=== PATIENT | female | born 1945 | race African-American/Black ===

== ENCOUNTER → 2017-04-04 | Outpatient (CLI) | payer MEDICARE ==
[2017-04-04 15:26] LABS: Blood Urea Nitrogen 23 mg/dL (7-17)
== END | disposition home or self-care (01) ==
LOC: LABWHC1 14:41
PROVIDERS: ATTEND Physical Medicine & Rehabilitation
DX: M48.56XD Collapsed vertebra, not elsewhere classified, lumbar region, subsequent encounter for fracture with routine healing (principal); M43.16 Spondylolisthesis, lumbar region; M47.814 Spondylosis without myelopathy or radiculopathy, thoracic region; M47.817 Spondylosis without myelopathy or radiculopathy, lumbosacral region; M48.062 Spinal stenosis, lumbar region with neurogenic claudication; M54.6 Pain in thoracic spine; M54.5 Low back pain
CPT/HCPCS: 36415; 82565; 84520

== ENCOUNTER → 2017-11-06 | Outpatient (CLI) | payer MEDICARE ==
--- NOTE | 2017-11-06 17:19 | CONS ---
CONSULTATION DATE OF SERVICE: 11/06/2017 This patient is a 72-year-old lady who has been evaluated in the sleep center for possible obstructive sleep apnea-hypopnea syndrome. HISTORY OF PRESENT ILLNESS/SLEEP-WAKE EVALUATION: Patient's usual sleep schedule on weekdays is from around 9 or 10 p.m. until 4:45 a.m., on weekends from around 11 p.m. until 6:30 or 8 a.m. Usually no problems with falling asleep, although she has a TV set in her bedroom. She sleeps on the side position with snoring and awakenings from sleep. In the morning patient wakes up tired. [place] Sleepiness Scale is 4. She may take naps after 2 p.m. For the last 10 years her weight has increased around 20 pounds. No history of hypnagogic hallucinations, sleep paralysis or cataplexy. PAST MEDICAL HISTORY: 1. Coronary artery disease. 2. Hypertension. 3. Back problems. PAST SURGICAL HISTORY: 1. CABG. 2. Total hysterectomy. 3. Back surgery in 2008. MEDICATIONS: 1. Dyazide. 2. Losartan. 3. Metoprolol. 4. Aspirin. 5. Motrin. SOCIAL HISTORY: Positive for smoking in the past; quit 40 years ago. Alcohol consumption none. FAMILY HISTORY: Hypertension, heart problems, hyperlipidemia, sinus headaches. REVIEW OF SYSTEMS: Some awakenings from sleep, feeling tiredness in the morning and also during the day. PHYSICAL EXAMINATION: GENERAL A pleasant 72-year-old -[place] lady without distress. VITAL SIGNS: BP 174/81, HR 45, RR 16, height 5 feet 6-1/4 inches, weight 249.4, body mass index 39.9, temperature 97.8, oxygen saturation at room air 95%. HEENT: PERRLA, EOMI. Evaluation of oropharynx showed tongue protrudes midline; extremely low position of soft palate. Mallampati IV. Slight restriction of nasal breathing. NECK: Supple. No JVD. Thyroid is not palpable. LUNGS: Clear to percussion and to auscultation. Good air exchange. No wheezing or rhonchi. HEART: S1, S2 regular. No murmurs, gallops or rubs. ABDOMEN: Obese. EXTREMITIES : No clubbing or cyanosis. APPLICATION CONSULTANT: Awake, alert, and oriented X3. Cranial nerves 2 to 7 intact. There is no fasciculation or atrophy. noted. No focal deficits observed. IMPRESSION: 1. Snoring, awakenings from sleep, extremely low position of soft palate, wide neck, tiredness, sometimes sleepiness during the day; patient takes naps in the afternoon; possible obstructive sleep apnea-hypopnea syndrome. 2. Obesity; body mass index 39.9. 3. Hypertension, not under very good control with at least 3 medications. Blood pressure in the office today was increased. 4. Coronary artery disease, status post coronary artery bypass grafting in 2004. 5. Back problems. 6. Status post back surgery in 2008. 7. Status post total hysterectomy. PLAN: 1. Polysomnography for evaluation of patient's breathing during sleep. 2. CPAP/BiPAP titration if sleep study confirms obstructive sleep apnea-hypopnea syndrome. 3. Preferable position during sleep on the side. 4. No driving if patient feels any sleepiness. Patient is aware of civil and criminal liability for unsafe driving. 5. I will see patient for follow-up visit to explain results of testing and following plan. Thank you very much for referring this patient for consultation. Sincerely, Woodrow Almanzar MD, PhD, FAASM Diplomat of [place] [employer] [employer] [place] Former of [facility] [place] MMODL / DONAVANN: [id number] /
== END | disposition home or self-care (01) ==
LOC: SLEEP 15:11
PROVIDERS: ATTEND Internal Medicine
DX: R06.83 Snoring (principal); M27.8 Other specified diseases of jaws; R53.83 Other fatigue; E66.9 Obesity, unspecified; I10 Essential (primary) hypertension; I25.10 Atherosclerotic heart disease of native coronary artery without angina pectoris; Z95.1 Presence of aortocoronary bypass graft; M53.9 Dorsopathy, unspecified; Z98.890 Other specified postprocedural states; Z68.39 Body mass index [BMI] 39.0-39.9, adult; Z90.710 Acquired absence of both cervix and uterus; Z79.1 Long term (current) use of non-steroidal anti-inflammatories (NSAID); Z79.82 Long term (current) use of aspirin; Z79.899 Other long term (current) drug therapy; Z87.891 Personal history of nicotine dependence
CPT/HCPCS: 99211

== ENCOUNTER → 2018-03-12 | Outpatient (CLI) | payer MEDICARE ==
--- NOTE | 2018-03-12 16:32 | PN ---
PROGRESS NOTE DATE OF SERVICE: 03/12/2018 This patient is a 72-year-old lady who has been followed in Sleep Center for treatment of obstructive sleep apnea-hypopnea syndrome. Recently the patient had a polysomnogram and CPAP titration, and I discussed results of her sleep studies with the patient in detail. Subsequently patient was started on treatment with CPAP. Today is her first visit after she was started on treatment. The patient is able to use CPAP equipment during the night. In the beginning she did had some difficulties, but later she got used to using the machine, and now she is using it more easily. At the same time, she still has episodes of awakenings up to 4 or 5 using the machine. Sometimes she may not be using her machine at the end of the night in the morning. I checked her CPAP unit. CPAP pressure is 9 cm of water. Usage is 23/30 nights for more than 4 hours. Otherwise, patient is using the equipment every night. Average usage is 4.9 hours. Leak is 22 L/minute, which is borderline. Apnea-hypopnea index for the last month is 4.0, which is acceptable. [place] Sleepiness Scale today is 4. MEDICATIONS: 1. Dyazide. 2. Losartan. 3. Metoprolol. 4. Aspirin. 5. Motrin. PHYSICAL EXAMINATION: GENERAL: A pleasant patient in no distress. VITAL SIGNS: BP 160/73, HR 56, RR 16, weight 245, temperature 98.2, oxygen saturation at room air 96%. HEENT: PERRLA, EOMI. Evaluation of oropharynx showed tongue protrudes midline. Extremely low position of soft palate. NECK: Supple. No JVD. Thyroid is not palpable. LUNGS: Clear to percussion and to auscultation. Good air exchange. No wheezing or rhonchi. HEART: S1, S2 regular. No murmurs, gallops or rubs. ABDOMEN: Slightly obese. EXTREMITIES: No clubbing or cyanosis. IT PROGRAM MANAGER: Awake, alert, and oriented X3. Cranial nerves 2 to 7 intact. There is no fasciculation or atrophy. noted. No focal deficits observed. IMPRESSION: 1. Obstructive sleep apnea-hypopnea syndrome in moderate range. Apnea-hypopnea index 20 with oxygen saturation to 79.7%, mostly under control with CPAP at 9 cm of water. Patient demonstrated good compliance with treatment, benefitting from treatment. 2. Patient still has some awakenings after 4 or 5 hours of using CPAP. 3. Obesity. 4. Hypertension. 5. Coronary artery disease, status post coronary artery bypass grafting in 2004. 6. Back problems. 7. Status post back surgery. 8. Status post total hysterectomy. PLAN: 1. Patient will continue to use CPAP equipment every night for the whole night. We discussed with her the necessity of using equipment in the morning hours because at that time there are more episodes of REM sleep, they are longer, and patient has more abnormal respirations related to REM sleep. 2. I will change regimen of the machine to automatic with a maximum pressure of 12 and minimum pressure of 5. 3. Losing weight. 4. Sleep hygiene with regular time in bed for at least 8 hours. 5. No driving if feeling any sleepiness. 6. We will maintain all necessary prescriptions for CPAP supplies, including mask, tube, filters. Thank you very much for allowing me to participate in the management of your patient. Sincerely, Woodrow Almanzar MD, PhD, FAASM Diplomat of [place] [employer] [place] [facility] [place] [facility]ODL / DONAVANN: [id number] /
== END ==
LOC: SLEEP 15:14
PROVIDERS: ATTEND Internal Medicine
DX: G47.33 Obstructive sleep apnea (adult) (pediatric) (principal); E66.9 Obesity, unspecified; I10 Essential (primary) hypertension; I25.10 Atherosclerotic heart disease of native coronary artery without angina pectoris; R29.898 Other symptoms and signs involving the musculoskeletal system; Z95.1 Presence of aortocoronary bypass graft; Z98.890 Other specified postprocedural states; Z90.710 Acquired absence of both cervix and uterus; Z99.89 Dependence on other enabling machines and devices; Z79.899 Other long term (current) drug therapy; Z79.1 Long term (current) use of non-steroidal anti-inflammatories (NSAID); Z79.82 Long term (current) use of aspirin

== ENCOUNTER → 2018-06-18 | Outpatient (CLI) | payer MEDICARE ==
--- NOTE | 2018-06-18 17:21 | PN ---
PROGRESS NOTE DATE OF SERVICE: 06/18/2018 This patient is a 73-year-old lady has been followed in the sleep center for treatment of obstructive sleep apnea-hypopnea syndrome. The last time I saw this patient was about 4 months ago. She came for a follow-up visit because during the first visit she did have some awakenings from sleep on the second part of the night. During the previous visit, I changed the regimen of her machine from 9 cm of water to the automatic regimen with the range of pressure 5 to 12 cm of water. With this regimen, the patient continues to use her CPAP equipment every night for the whole night. She sleeps better but still sometimes wakes up in the second part of the night, but less than before. I checked her CPAP unit. Range of the pressure is from 5 to 12 cm of water, but most of the time pressure is in the range of 10.3 cm of water. Leak is 23 L/minute, which is acceptable. Usage is 25/30 nights for more than 4 hours. Average usage is 5.3 hours, which is good compliance. Apnea-hypopnea index is 4.1, which is in normal range, but still may be the reason for patient's awakenings during the second part of the night. At present the patient is trying to stay off her back position. [place] Sleepiness Scale is 5. MEDICATIONS: 1. Dyazide. 2. Losartan. 3. Metoprolol. 4. Aspirin. 5. Motrin. PHYSICAL EXAMINATION: GENERAL: A pleasant patient in no distress. VITAL SIGNS: BP 160/79, HR 53, R 16, height 5 feet 6 inches, weight 241.6 pounds, body mass index 38.8, temperature 97.7, oxygen saturation at room air 97%. HEENT: PERRLA, EOMI. Evaluation of oropharynx showed tongue protrudes midline. Extremely low position of soft palate. Mallampati IV. NECK: Supple. No JVD. Thyroid is not palpable. LUNGS: Clear to percussion and to auscultation. Good air exchange. No wheezing or rhonchi. HEART: S1, S2 regular. No murmurs, gallops or rubs. ABDOMEN: Slightly obese. EXTREMITIES: No clubbing or cyanosis. SEAMSTRESS FITTER: Awake, alert, and oriented X3. Cranial nerves 2 to 7 intact. There is no fasciculation or atrophy. noted. No focal deficits observed. IMPRESSION: 1. Moderate obstructive sleep apnea-hypopnea syndrome; apnea-hypopnea index 20, with oxygen desaturation to 79.7%, in REM sleep 61.7. Patient demonstrated great compliance with treatment, benefitting from treatment. 2. Obesity. 3. Hypertension. 4. Coronary artery disease, status post coronary artery bypass grafting in 2004. 5. Back problems. 6. Status post back surgery. 7. Status post total hysterectomy. PLAN: 1. Patient will continue to use CPAP equipment with the same regimen as it is now. Patient will try to sleep on the side position. 2. Patient has lost 4 pounds since her previous visit. Continue losing weight. 3. Sleep hygiene with regular time in bed for 7-1/2 to 8 hours. 4. No driving if feeling any sleepiness. Thank you very much for allowing me to participate in the management of your patient. Sincerely, Woodrow Almanzar MD, PhD, FAASM Diplomat of [employer] Systems Support Specialist of [facility] [place] [facility]L / DONAVANN: [id number] /
== END | disposition home or self-care (01) ==
LOC: SLEEP 15:19
PROVIDERS: ATTEND Internal Medicine
DX: G47.33 Obstructive sleep apnea (adult) (pediatric) (principal); E66.9 Obesity, unspecified; I10 Essential (primary) hypertension; I25.10 Atherosclerotic heart disease of native coronary artery without angina pectoris; M54.9 Dorsalgia, unspecified; Z95.1 Presence of aortocoronary bypass graft; Z90.710 Acquired absence of both cervix and uterus; Z98.890 Other specified postprocedural states; Z68.38 Body mass index [BMI] 38.0-38.9, adult; Z79.82 Long term (current) use of aspirin; Z79.1 Long term (current) use of non-steroidal anti-inflammatories (NSAID); Z79.899 Other long term (current) drug therapy; Z99.89 Dependence on other enabling machines and devices

== ENCOUNTER → 2022-01-18 | Outpatient (CLI) | payer MEDICARE ==
--- NOTE | 2022-01-18 09:46 | US ---
EXAMINATION TYPE: US thyroid st tissue head/neck DATE OF EXAM: 01/18/2022 COMPARISON: Chest CT 2014. CLINICAL HISTORY: R22.1 Localized swelling, mass and lump neck. Lump right side of neck. Scanned area of concern no abnormalities seen. Targeted ultrasound right neck shows no worrisome solid or cystic mass or fluid collection. Normal ri ght thyroid lobe is present on images. IMPRESSION: As above.
== END | disposition home or self-care (01) ==
LOC: RADUSWWP 07:40
PROVIDERS: ATTEND Family Medicine
DX: R22.1 Localized swelling, mass and lump, neck (principal)
CPT/HCPCS: 76536

== ENCOUNTER → 2022-02-13 | Outpatient (CLI) | payer MEDICARE ==
--- NOTE | 2022-02-13 13:41 | CT ---
EXAMINATION TYPE: CT soft tissue neck w con DATE OF EXAM: 02/13/2022 COMPARISON: Ultrasound 01/18/2022 HISTORY: 76-year-old female R22.1, lump to anterior right side of neck TECHNIQUE: Contiguous axial scanning of the soft tissues of the neck performed with IV Contrast, reena ent injected with 70cc mL of Isovue 300. Coronal/sagittal reconstructions performed. CT DLP: 700 mGycm Automated exposure control for dose reduction was used. FINDINGS: Visualized paranasal sinuses, orbits and globes, and mastoid air cells appear clear. Atherosclerotic calcifications in the carotid siphons. Also within the right greater than left verteb ral arteries. Nasopharynx appears clear. There is a 4 mm calcification in the right palatine tonsils. Likely sequela of old infection. Short r etropharyngeal course of the left ICA noted. Oropharynx otherwise clear. Patient is partially dentulous. Mild dental amalgam artifact limiting portions of the oral cavity. Possible circumferential soft tissue narrowing of the supraglottic airway, reference axial image 41. Either piriform sinus is well seen. Epiglottis and prevertebral soft tissues are satisfactory. The glottic and subglottic structures as well as the tracheal column appear clear. Median sternotomy wires. Bovine configuration to the aortic arch. There is a very tortuous brachiocephalic artery which extends anteriorly, slightly pushing on to the right side of the lower right sternocleidomastoid muscle. Responding focal tortuosity of the proximal right subclavian and proximal right common carotid arteries. Overlying palpable marker here at the tortuous brachiocephalic artery. Refer to sagittal image 52. No cervical lymphadenopathy seen. Thyroid, submandibular, and parotid glands appear satisfactory. Visualized upper lungs show mild wall thickening that could be seen with bronchitis or asthma. Bones: Mild to moderate multilevel spondylotic change. IMPRESSION: 1. POSSIBLE CIRCUMFERENTIAL SOFT TISSUE THICKENING CAUSING NARROWING OF THE SUPRAGLOTTIC AIRWAY. JOAQUÍN MMEND DIRECT VISUALIZATION TO EXCLUDE ANNULAR MUCOSAL LESION/NEOPLASM HERE. 2. PALPABLE MARKER ALONG THE ANTERIOR ASPECT OF THE RIGHT LOWER NECK. THIS APPEARS TO CORRESPOND TO F OCAL TORTUOSITY OF THE BRACHIOCEPHALIC ARTERY PUSHING ONTO THE BACK SIDE OF THE LOWER RIGHT STERNOCLE IDOMASTOID MUSCLE. REFER TO SAGITTAL IMAGE 52 FOR A PHONOGRAPH CARTRIDGE ASSEMBLER IMAGE.
== END | disposition home or self-care (01) ==
LOC: RADCTMAIN 10:28
PROVIDERS: ATTEND Family Medicine
DX: R22.1 Localized swelling, mass and lump, neck (principal)
CPT/HCPCS: 82565; 84520; 70491; 36415; Q9967

== ENCOUNTER → 2022-06-14 | Outpatient (CLI) | payer MEDICARE | END | disposition home or self-care (01) | LOC: LABWHC1 15:34 | PROVIDERS: ATTEND Family Medicine | DX: I10 Essential (primary) hypertension (principal) | CPT/HCPCS: 83835 ==

== ENCOUNTER 2023-02-14 00:33 | Inpatient (IN) | payer MEDICARE, OTHER ==
[2023-02-14] MEDS ORDERED: EPINEPHrine 10 ML SYRINGE (0.1 MG/ML) ONE (00:34)
[2023-02-14] MEDS ORDERED: SODIUM BICARB 8.4% 50 ML SYR (1 MEQ/ML) ONE ×2 (00:34→08:59)
[2023-02-14] MEDS ORDERED: HEPARIN SODIUM 1,000 UN/ML (10ML VL) IV PRN (01:00)
[2023-02-14] MEDS ORDERED: EPINEPHrine 4 MG in DEXTROSE 5% IN WATER 250 ML IV ONE ×2 (01:00)
[2023-02-14] MEDS ORDERED: SODIUM CHLORIDE 0.9% 1,000 ML IV STA (01:00)
[2023-02-14] MEDS ORDERED: HEPARIN SOD,PORK IN 0.45% NACL 25,000 UNIT in 0.45% NACL 1 250ML.BAG IV SCH (01:00)
[2023-02-14] MEDS ORDERED: HEPARIN SODIUM 1,000 UN/ML (10ML VL) IV ONE (01:00)
[2023-02-14] MEDS ORDERED: ASPIRIN 300 MG SUPP RECTAL STA (01:01)
[2023-02-14 01:07] LABS: Basophils # (A) 0.1 k/uL (0-0.2); Basophils % (A) 1 %; Eosinophils # (A) 0.1 k/uL (0-0.7); Eosinophils % (A) 1 %; HCT 41.5 % (34.0-46.0); HGB 12.8 gm/dL (11.4-16.0); Hypochromasia Marked; Lymphocytes # (A) 5.4 k/uL (1.0-4.8); Lymphocytes % (A) 46 %; MCHC 30.9 g/dL (31.0-37.0); MCV 100.5 fL (80.0-100.0); Macrocytosis Slight; Mean Platelet Volume 8.3; Monocytes # (A) 0.3 k/uL (0-1.0); Monocytes % (A) 2 %; Neutrophils # (A) 5.7 k/uL (1.3-7.7); Neutrophils % (A) 48 %; Platelet Count 132 k/uL (150-450); RBC 4.13 m/uL (3.80-5.40); RDW 14.5 % (11.5-15.5); WBC 11.9 k/uL (3.8-10.6)
[2023-02-14 01:23] LABS: ALT 115 U/L (4-34); AST 139 U/L (14-36); African American GFR (CKD) 41 (>60 ml/min/1.73 sqM); Albumin 3.5 g/dL (3.5-5.0); Alkaline Phosphatase 124 U/L (38-126); Anion Gap 21 mmol/L; Blood Urea Nitrogen 18 mg/dL (7-17); Calcium 8.4 mg/dL (8.4-10.2); Carbon Dioxide 13 mmol/L (22-30); Chloride 109 mmol/L (98-107); Glucose 308 mg/dL (74-99); Magnesium 2.3 mg/dL (1.6-2.3); Non-African American GFR(CKD) 36 (>60 ml/min/1.73 sqM); Phosphorus 7.6 mg/dL (2.5-4.5); Sodium 143 mmol/L (137-145); Total Bilirubin 0.8 mg/dL (0.2-1.3); Total Protein 6.7 g/dL (6.3-8.2)
--- NOTE | 2023-02-14 01:26 | ED ---
CPR HPI - General Chief Complaint: Cardiac Arrest/CPR Stated Complaint: unresponsive Time Seen by Provider: 02/14/23 00:35 Source: EMS, RN notes reviewed, old records reviewed Mode of arrival: EMS Limitations: no limitations - History of Present Illness Initial Comments: This is a 77-year-old female to the emergency department for evaluation. Patient presents today for evaluation of cardiac arrest. Patient was a witnessed collapse hitting the ground and was significantly found altered, no pulse, initial rhythm was asystolepresents today MD Complaint: found unresponsive Bystander CPR Performed: Yes AED Applied by Bystander/Changeover Operator: Yes Shock Advised: No Initial Findings in the Field: unresponsive ROSC in the Field: Yes Associated Injuries: Yes Treatments Prior to Arrival: intubation - Related Data Home Medications Medication Instructions Recorded Confirmed Metoprolol Tartrate [Lopressor] 25 mg PO BID 07/23/13 02/14/23 Irbesartan 300 mg PO DAILY 04/08/22 02/14/23 Latanoprost/Pf [Latanoprost 0.005% 1 drop BOTH EYES HS 04/08/22 02/14/23 Eye Drop] [place]-3 Fatty Acids [[place]-3] 1,000 mg PO DAILY 04/08/22 02/14/23 Albuterol Sulfate [Albuterol 2 puff PO RT-Q4H PRN 02/14/23 02/14/23 Sulfate Hfa] Aspirin EC [Ecotrin Low Dose] 81 mg PO DAILY 02/14/23 02/14/23 Ergocalciferol [Vitamin D2 (1250 1,250 mcg PO QMONTHLY 02/14/23 02/14/23 Mcg = 81447 Iu)] Spironolactone 25 mg PO DAILY 02/14/23 02/14/23 amLODIPine [Norvasc] 10 mg PO DAILY 02/14/23 02/14/23 Allergies Allergy/AdvReac Type Severity Reaction Status Date / Time No Known Allergies Allergy Verified 02/14/23 09:12 Review of Systems ROS Statement: Those systems with pertinent positive or pertinent negative responses have been documented in the HPI. ROS Other: All systems not noted in ROS Statement are negative. Past Medical History - Past Family History Mother Family Medical History: No Reported History General Exam Limitations: altered mental status, physical limitation General appearance: anxious, obtunded, in distress Head exam: Present: atraumatic, normocephalic, normal inspection Eye exam: Present: other (Pupils are fixed and dilated) ENT exam: Present: normal exam, mucous membranes moist Neck exam: Present: normal inspection. Absent: tenderness, meningismus, lymphadenopathy Respiratory exam: Present: other (Neck) Cardiovascular Exam: Present: regular rate, normal rhythm, bradycardia, tachyc ardia, irregular rhythm, normal heart sounds. Absent: systolic murmur, diastolic murmur, rubs, gallop, clicks GI/Abdominal exam: Present: soft, normal bowel sounds. Absent: distended, tenderness, guarding, rebound, rigid Extremities exam: Present: normal inspection, full ROM, normal capillary refill. Absent: tenderness, pedal edema, joint swelling, calf tenderness Back exam: Present: normal inspection Neurological exam: Present: alert, oriented X3, CN II-XII intact Psychiatric exam: Present: normal affect, normal mood Skin exam: Present: warm, dry, intact, normal color. Absent: rash Course Vital Signs 02/14/23 02/14/23 02/14/23 01:06 02:10 02:20 Pulse Rate 86 92 Respiratory 0 L 10 L Rate Blood Pressure 119/74 117/100 O2 Sat by Pulse 100 93 L Oximetry Fraction of 100 Inspired Oxygen (FIO2) 02/14/23 02/14/23 02/14/23 02:30 02:38 02:40 Pulse Rate 90 91 Respiratory 8 L 8 L Rate Blood Pressure 147/132 171/121 O2 Sat by Pulse 98 99 Oximetry Fraction of 100 Inspired Oxygen (FIO2) 02/14/23 02/14/23 02/14/23 02:50 03:00 03:10 Pulse Rate 91 93 96 Respiratory 7 L 18 14 Rate Blood Pressure 169/101 167/120 171/109 O2 Sat by Pulse 100 100 100 Oximetry Fraction of Inspired Oxygen (FIO2) 02/14/23 02/14/23 02/14/23 03:20 03:30 04:00 Pulse Rate 98 105 H Respiratory 14 11 L Rate Blood Pressure 175/123 173/115 O2 Sat by Pulse 100 99 Oximetry Fraction of 60 Inspired Oxygen (FIO2) 02/14/23 02/14/23 04:45 04:46 Pulse Rate 86 Respiratory 25 H Rate Blood Pressure O2 Sat by Pulse 98 Oximetry Fraction of 100 Inspired Oxygen (FIO2) - Reevaluation(s) Reevaluation #1: 02/14/23 02:46 Records reviewed Reevaluation #2: This patient has multiple episodes of return of spontaneous circulation followed by bradycardic hemodynamic collapse requiring recurrent CPR, ACLS protocol Reevaluation #3: patient is informed of results and questions answered Reevaluation #4: 02/14/23 02:46 Was pt. sent in by a medical professional or institution (, [facility], [facility], urgent care, hospital, or senior care...) When possible be specific @ -no Did you speak to anyone other than the patient for history (EMS, parent, family, police, friend...)? What history was obtained from this source @ -no Did you review nursing and triage notes (agree or disagree)? Why? @ -agree Are old charts reviewed (outside hosp., previous admission, EMS record, old EKG, old radiological studies, urgent care reports/EKG's, senior care records)? Report findings @ -yes Differential Diagnosis (chest pain, altered mental status, abdominal pain women, abdominal pain men, vaginal bleeding, weakness, fever, dyspnea, syncope, headache, dizziness, GI bleed, back pain, seizure, CVA, palpatations, mental health, musculoskeletal)? @ -prior EKG interpreted by me (3pts min.). @ -yes X-rays interpreted by me (1pt min.). @ -yes CT interpreted by me (1pt min.). @ -no U/S interpreted by me (1pt. min.). @ -no What testing was considered but not performed or refused? (CT, X-rays, U/S, labs)? Why? @ -none What meds were considered but not given or refused? Why? @ -none Did you discuss the management of the patient with other professionals (professionals i.e. [facility] Mathews, [facility], lab, RT, psych nurse, social media marketer, employment manager, teacher, infantry officer, keycase assembler)? Give summary @ -no Was smoking cessation discussed for >3mins.? @ -no Was critical care preformed (if so, how long)? @ -no Were there social determinants of health that impacted care today? How? (Homelessness, low income, unemployed, alcoholism, drug addiction, transportation, low edu. Level, literacy, decrease access to med. care, care home, rehab)? @ -none Was there de-escalation of care discussed even if they declined (Discuss DNR or withdrawal of care, Hospice)? DNR status @ -no What co-morbidities impacted this encounter? (DM, HTN, Smoking, COPD, CAD, Cancer, CVA, ARF, Chemo, Hep., AIDS, mental health diagnosis, sleep apnea, morbid obesity)? @ -none Was patient admitted / discharged? Hospital course, mention meds given and route, prescriptions, significant lab abnormalities, going to OR and other pertinent info. @ - Undiagnosed new problem with uncertain prognosis? @ -no Drug Therapy requiring intensive monitoring for toxicity (Heparin, Nitro, Insulin, Cardizem)? @ -no Were any procedures done? @ -no Diagnosis/symptom? @ - Acute, or Chronic, or Acute on Chronic? @ -Acute Uncomplicated (without systemic symptoms) or Complicated (systemic symptoms)? @ -Complicated Side effects of treatment? @ -no Exacerbation, Progression, or Severe Exacerbation? @ -exacerbation Poses a threat to life or bodily function? How? (Chest pain, [place], [place], pneumonia, PE, COPD, DKA, ARF, appy, cholecystitis, CVA, Diverticulitis, Homicidal, Suicidal, threat to staff... and all critical care pts) @ -yes Reevaluation #5: 02/14/23 02:46 Hypoxia, Hacidosis, Hypotension, Hyperkalemia, Hypoglycemia Trauma, Tamponade, Toxins, TensionPtx,Thrombosis - Consultations Consultation #1: spoke with cardiology who will not be taking this patient to the [facility] with epinephrine dependent cardiac activity, no neurological activity Consultation #2: [place] with admitting physicians who agreed to admit this patient Consultation #3: Spoke with ICU who agreed to admit this patient Medical Decision Making - Medical Decision Making 77 female the ER for evaluation of cardiac arrest. Patient was able to be maintained pain with return of spontaneous circulation, elevation with central line and in admitted to the ICU for further supportive care - Lab Data Result diagrams: 02/17/23 04:16 02/17/23 04:16 Lab Results 02/14/23 02/14/23 02/14/23 Range/Units 00:49 00:49 00:49 WBC 11.9 H (3.8-10.6) k/uL RBC 4.13 (3.80-5.40) m/uL Hgb 12.8 (11.4-16.0) gm/dL Hct 41.5 (34.0-46.0) % MCV 100.5 H (80.0-100.0) fL MCH 31.0 (25.0-35.0) pg MCHC 30.9 L (31.0-37.0) g/dL RDW 14.5 (11.5-15.5) % Plt Count 132 L (150-450) k/uL MPV 8.3 Neutrophils % 48 % Lymphocytes % 46 % Monocytes % 2 % Eosinophils % 1 % Basophils % 1 % Neutrophils # 5.7 (1.3-7.7) k/uL Lymphocytes # 5.4 H (1.0-4.8) k/uL Monocytes # 0.3 (0-1.0) k/uL Eosinophils # 0.1 (0-0.7) k/uL Basophils # 0.1 (0-0.2) k/uL Manual Slide Review Performed Hypochromasia Marked Macrocytosis Slight PT 13.3 H (10.0-12.5) sec INR 1.3 H (<1.2) APTT 40.4 H (22.0-30.0) sec Sample Site ABG pH (7.35-7.45) ABG pCO2 (35-45) mmHg ABG pO2 (83-108) mmHg ABG HCO3 (21-25) mmol/L ABG Total CO2 (19-24) mmol/L ABG O2 Saturation (94-97) % ABG Base Excess mmol/L Tom Test FiO2 % Sodium 143 (137-145) mmol/L Potassium 3.2 L (3.5-5.1) mmol/L Chloride 109 H (98-107) mmol/L Carbon Dioxide 13 L (22-30) mmol/L Anion Gap 21 mmol/L BUN 18 H (7-17) mg/dL Creatinine 1.42 H (0.52-1.04) mg/dL Est GFR (CKD-EPI)AfAm 41 (>60 ml/min/1.73 sqM) Est GFR (CKD-EPI)NonAf 36 (>60 ml/min/1.73 sqM) Glucose 308 H (74-99) mg/dL Lactic Ac Sepsis Rflx Plasma Lactic Acid Klever (0.7-2.0) mmol/L Calcium 8.4 (8.4-10.2) mg/dL Phosphorus 7.6 H (2.5-4.5) mg/dL Magnesium 2.3 (1.6-2.3) mg/dL Total Bilirubin 0.8 (0.2-1.3) mg/dL AST 139 H (14-36) U/L ALT 115 H (4-34) U/L Alkaline Phosphatase 124 (38-126) U/L Troponin I (0.000-0.034) ng/mL NT-Pro-B Natriuret Pep 8610 pg/mL Total Protein 6.7 (6.3-8.2) g/dL Albumin 3.5 (3.5-5.0) g/dL 02/14/23 02/14/23 02/14/23 Range/Units 00:49 00:49 01:33 WBC (3.8-10.6) k/uL RBC (3.80-5.40) m/uL Hgb (11.4-16.0) gm/dL Hct (34.0-46.0) % MCV (80.0-100.0) fL MCH (25.0-35.0) pg MCHC (31.0-37.0) g/dL RDW (11.5-15.5) % Plt Count (150-450) k/uL MPV Neutrophils % % Lymphocytes % % Monocytes % % Eosinophils % % Basophils % % Neutrophils # (1.3-7.7) k/uL Lymphocytes # (1.0-4.8) k/uL Monocytes # (0-1.0) k/uL Eosinophils # (0-0.7) k/uL Basophils # (0-0.2) k/uL Manual Slide Review Hypochromasia Macrocytosis PT (10.0-12.5) sec INR (<1.2) APTT (22.0-30.0) sec Sample Site ABG pH (7.35-7.45) ABG pCO2 (35-45) mmHg ABG pO2 (83-108) mmHg ABG HCO3 (21-25) mmol/L ABG Total CO2 (19-24) mmol/L ABG O2 Saturation (94-97) % ABG Base Excess mmol/L Tom Test FiO2 % Sodium (137-145) mmol/L Potassium (3.5-5.1) mmol/L Chloride (98-107) mmol/L Carbon Dioxide (22-30) mmol/L Anion Gap mmol/L BUN (7-17) mg/dL Creatinine (0.52-1.04) mg/dL Est GFR (CKD-EPI)AfAm (>60 ml/min/1.73 sqM) Est GFR (CKD-EPI)NonAf (>60 ml/min/1.73 sqM) Glucose (74-99) mg/dL Lactic Ac Sepsis Rflx Y Plasma Lactic Acid Klever 10.4 H* (0.7-2.0) mmol/L Calcium (8.4-10.2) mg/dL Phosphorus (2.5-4.5) mg/dL Magnesium (1.6-2.3) mg/dL Total Bilirubin (0.2-1.3) mg/dL AST (14-36) U/L ALT (4-34) U/L Alkaline Phosphatase (38-126) U/L Troponin I 0.127 H* (0.000-0.034) ng/mL NT-Pro-B Natriuret Pep pg/mL Total Protein (6.3-8.2) g/dL Albumin (3.5-5.0) g/dL 02/14/23 Range/Units 02:25 WBC (3.8-10.6) k/uL RBC (3.80-5.40) m/uL Hgb (11.4-16.0) gm/dL Hct (34.0-46.0) % MCV (80.0-100.0) fL MCH (25.0-35.0) pg MCHC (31.0-37.0) g/dL RDW (11.5-15.5) % Plt Count (150-450) k/uL MPV Neutrophils % % Lymphocytes % % Monocytes % % Eosinophils % % Basophils % % Neutrophils # (1.3-7.7) k/uL Lymphocytes # (1.0-4.8) k/uL Monocytes # (0-1.0) k/uL Eosinophils # (0-0.7) k/uL Basophils # (0-0.2) k/uL Manual Slide Review Hypochromasia Macrocytosis PT (10.0-12.5) sec INR (<1.2) APTT (22.0-30.0) sec Sample Site RBRACHIAL ABG pH 7.07 L* (7.35-7.45) ABG pCO2 67 H (35-45) mmHg ABG pO2 114 H (83-108) mmHg ABG HCO3 19 L (21-25) mmol/L ABG Total CO2 21 (19-24) mmol/L ABG O2 Saturation 95.5 (94-97) % ABG Base Excess -11.0 mmol/L Tom Test Yes FiO2 100 % Sodium (137-145) mmol/L Potassium (3.5-5.1) mmol/L Chloride (98-107) mmol/L Carbon Dioxide (22-30) mmol/L Anion Gap mmol/L BUN (7-17) mg/dL Creatinine (0.52-1.04) mg/dL Est GFR (CKD-EPI)AfAm (>60 ml/min/1.73 sqM) Est GFR (CKD-EPI)NonAf (>60 ml/min/1.73 sqM) Glucose (74-99) mg/dL Lactic Ac Sepsis Rflx Plasma Lactic Acid [place] (0.7-2.0) mmol/L Calcium (8.4-10.2) mg/dL Phosphorus (2.5-4.5) mg/dL Magnesium (1.6-2.3) mg/dL Total Bilirubin (0.2-1.3) mg/dL AST (14-36) U/L ALT (4-34) U/L Alkaline Phosphatase (38-126) U/L Troponin I (0.000-0.034) ng/mL NT-Pro-B Natriuret Pep pg/mL Total Protein (6.3-8.2) g/dL Albumin (3.5-5.0) g/dL - EKG Data -: EKG Interpreted by Me (G is A. fib 85 QRS 125 QTc 464 no arrhythmia with ischemic demand) - Radiology Data Radiology results: report reviewed (CT brain C-spine negative for traumatic injury, chest x-ray does show pneumonia, positive ET tube), image reviewed Critical Care Time Critical Care Time: Yes Total Critical Care Time: 95 Disposition Clinical Impression: Acute myocardial infarction, Acute respiratory failure, Cardiac arrest, Signs of return of spontaneous circulation, Pneumonia Disposition: ADMITTED IP TO THIS HOSP Condition: Critical Is patient prescribed a controlled substance at d/c from ED?: No Time of Disposition: 03:00
[2023-02-14] MEDS ORDERED: VERAPAMIL 2.5 MG/ML 2 ML AMP ONE (01:27)
[2023-02-14] MEDS ORDERED: LIDOCAINE 1% INJ 10MG/ML (20 ML MDV) ONE (01:27)
[2023-02-14 01:28] LABS: INR 1.3 (<1.2); Partial Thromboplastin Time 40.4 sec (22.0-30.0); Prothrombin Time 13.3 sec (10.0-12.5)
[2023-02-14 01:29] LABS: Potassium 3.2 mmol/L (3.5-5.1)
[2023-02-14 01:30] LABS: NT-Pro-B-Type Natriuretic Pept 8610 pg/mL
--- NOTE | 2023-02-14 02:07 | XR ---
EXAM: XR Chest, 1 View CLINICAL HISTORY: STEMI TECHNIQUE: Frontal view of the chest. COMPARISON: No relevant prior studies available. FINDINGS: Lungs: Large amount of airspace opacities in both lungs, more on the left. Right lung is under inflated. Pleural space: Unremarkable. Heart: Cardiomegaly. Mediastinum: Unremarkable. Normal mediastinal contour. Bones/joints: Sternal wires. Tubes, lines and devices: Tip of enteric tube is in the body the stomach. Tip of endotracheal tube is about 4 cm above the mary. Upper abdomen: Colonic dilatation measuring up to 7.6 cm may suggest colonic ileus with distal obstruction. IMPRESSION: 1. Bilateral pneumonia and/or pulmonary edema, worse on the left. 2. Colonic dilatation measuring up to 7.6 cm, may suggest colonic ileus with distal obstruction.
--- NOTE | 2023-02-14 02:11 | CT ---
855 images EXAM: CT Head Without Intravenous Contrast CLINICAL HISTORY: ITS.REASON CT Reason: fall TECHNIQUE: Axial computed tomography images of the head/brain without intravenous contrast. CTDI is 12.9 mGy and DLP is 420.95 mGy-cm. This CT exam was performed using one or more of the following dose reduction techniques: automated exposure control, adjustment of the mA and/or kV according to patient size, and/or use of iterative reconstruction technique. Coronal and sagittal reformatted images were created and reviewed. COMPARISON: No relevant prior studies available. FINDINGS: Brain: Moderate sized encephalomalacia of right temporal lobe. Moderate age-related generalized brain volume loss and chronic small vessel ischemic changes. No hemorrhage. Ventricles: Unremarkable. No ventriculomegaly. Bones/joints: No acute findings. Soft tissues: Large left forehead scalp hematoma extending to left orbit and nasal bone. Sinuses: Ethmoid sinus disease. Mastoid air cells: Unremarkable as visualized. No mastoid effusion. IMPRESSION: No intracranial hemorrhage or skull fracture. EXAM: CT Cervical Spine Without Intravenous Contrast CLINICAL HISTORY: ITS.REASON CT Reason: fall TECHNIQUE: Axial computed tomography images of the cervical spine without intravenous contrast. CTDI is 17.5 mGy and DLP is 501.5 mGy-cm. This CT exam was performed using one or more of the following dose reduction techniques: automated exposure control, adjustment of the mA and/or kV according to patient size, and/or use of iterative reconstruction technique. Coronal and sagittal reformatted images were created and reviewed. COMPARISON: No relevant prior studies available. FINDINGS: Vertebrae: Osteopenia. Moderate degenerative changes. No acute fracture. Discs/spinal canal/neural foramina: No acute findings. No spinal canal stenosis. Soft tissues: Subcutaneous contusion of left neck base. Lung apices: Large amount of opacities in the visualized left lung and small in the right lung, suggest pneumonia, pulmonary contusion versus aspiration. Tubes, lines and devices: Endotracheal and enteric tubes are noted. IMPRESSION: 1. No fracture or subluxation. 2. Bilateral pneumonia, pulmonary contusion versus aspiration, worse in the left.
--- NOTE | 2023-02-14 02:14 | CT ---
EXAM: CT Maxillofacial Without Intravenous Contrast CLINICAL HISTORY: fall TECHNIQUE: Axial computed tomography images of the face without intravenous contrast. CTDI is 12.9 mGy and DLP is 420.95 mGy-cm. This CT exam was performed using one or more of the following dose reduction techniques: automated exposure control, adjustment of the mA and/or kV according to patient size, and/or use of iterative reconstruction technique. Coronal and sagittal reformatted images were created and reviewed. COMPARISON: No relevant prior studies available. FINDINGS: Bones/joints: No acute findings. Soft tissues: Large left forehead scalp hematoma extending to orbit and nasal bone. Orbits: Unremarkable. Sinuses: Unremarkable. No air-fluid levels. IMPRESSION: No fracture.
[2023-02-14 02:28] LABS: ABG HCO3 19 mmol/L (21-25); ABG Oxygen Saturation 95.5 % (94-97); ABG PCO2 67 mmHg (35-45); ABG PO2 114 mmHg (83-108); ABG TCO2 21 mmol/L (19-24); Allen Test Performed? Yes
[2023-02-14 02:36] LABS: ABG PH 7.07 (7.35-7.45)
[2023-02-14] MEDS ORDERED: IPRATROPIUM-ALBUTEROL 3 ML NEB INHALATION PRN ×2 (02:51→08:36)
[2023-02-14] MEDS ORDERED: NALOXONE 0.4 MG/ML 1 ML VIAL IV PRN (02:51)
[2023-02-14] MEDS ORDERED: MIDAZOLAM 1 MG/ML 5 ML VIAL IV STA (03:14)
[2023-02-14 04:34] LABS: Glucose,Whole Blood 219 mg/dL (70-110)
[2023-02-14 05:02] LABS: Basophils # (A) 0.1 k/uL (0-0.2); Basophils % (A) 0 %; Eosinophils # (A) 0.1 k/uL (0-0.7); Eosinophils % (A) 1 %; HCT 39.9 % (34.0-46.0); HGB 12.5 gm/dL (11.4-16.0); Hypochromasia Moderate; Lymphocytes % (A) 14 %; MCH 30.5 pg (25.0-35.0); MCHC 31.3 g/dL (31.0-37.0); MCV 97.7 fL (80.0-100.0); Mean Platelet Volume 8.3; Monocytes # (A) 0.6 k/uL (0-1.0); Monocytes % (A) 3 %; Neutrophils # (A) 18.1 k/uL (1.3-7.7); Neutrophils % (A) 82 %; Platelet Count 177 k/uL (150-450); RBC 4.08 m/uL (3.80-5.40); RDW 14.7 % (11.5-15.5); WBC 22.2 k/uL (3.8-10.6)
[2023-02-14 05:14] LABS: African American GFR (CKD) 33 (>60 ml/min/1.73 sqM); Anion Gap 19 mmol/L; Blood Urea Nitrogen 25 mg/dL (7-17); Calcium 7.8 mg/dL (8.4-10.2); Carbon Dioxide 18 mmol/L (22-30); Chloride 108 mmol/L (98-107); Glucose 282 mg/dL (74-99); Magnesium 2.1 mg/dL (1.6-2.3); Non-African American GFR(CKD) 29 (>60 ml/min/1.73 sqM); Potassium 2.8 mmol/L (3.5-5.1); Sodium 145 mmol/L (137-145)
[2023-02-14] MEDS ORDERED: SODIUM CHLORIDE 0.9% 1,000 ML IV ONE ×2 (05:21→07:13)
[2023-02-14] MEDS ORDERED: Potassium Replacement Protocol 1 EACH MISC MISCELLANE PRN (05:31)
[2023-02-14] MEDS: VASOPRESSIN 60 UNIT in SODIUM CHLORIDE 0.9% 150 ML IV SCH (05:42)
[2023-02-14] MEDS: POTASSIUM CHLORIDE 20 MEQ in WATER FOR INJECTION 1 100ML.BAG IVPB SCH ×5 (06:05→17:12)
[2023-02-14 06:34] LABS: ABG Base Excess -9.2 mmol/L; ABG HCO3 19 mmol/L (21-25); ABG Oxygen Saturation 93.1 % (94-97); ABG PCO2 46 mmHg (35-45); ABG PH 7.22 (7.35-7.45); ABG PO2 78 mmHg (83-108); ABG TCO2 20 mmol/L (19-24); Allen Test Performed? Yes
--- NOTE | 2023-02-14 07:41 | P.CRDCN ---
History of Present Illness Consult date: 02/14/23 History of present illness: History of Present Illness: Patient is a 77-year-old female with a known history of CAD, status post CABG over 20 years ago who presented with cardiac arrest. The history is obtained from the records and the family. According to the son he came back home and found his mother on the floor, very weak dyspneic and shortly after had cardiac arrest. EMS started CPR that lasted for about 30 minutes requiring cardioversion 2. She was intubated. In the emergency room initially she was in atrial fibrillation and subsequently went back to sinus mechanism. The initial rhythm on the field according to the records was asystole. Patient had a large hematoma on the left side of the face. According to the family she has been doing well recently without any symptoms of angina pectoris nor congestive heart failure but she does not follow-up with cardiology on a regular basis. She had a triple bypass according to them, full detail of her intervention are not available. Her surgery was done at [facility]. The records are not available. No other history is available at this time. The patient is intubated, in sinus mechanism, has no urinary output and is requiring vasopressin and norepinephrine. She was severely acidotic on presentation. Medications: Metoprolol in addition to other medications, unclear Review of Systems: Could not be obtained Physical Examination: 77-year-old female, intubated with large hematoma on the left side of the face ,Blood pressure 120/70, Heart rate 80 Head: Hematoma above the left eye and on the left cheek Eyes: Significant edema on the left side Neck: Good carotid upstroke, no bruit, no jugular venous distention. Lungs: Clear to auscultation anteriorly. Heart: Regular rate and rhythm, S1-S2, no S3, no rub. Systolic ejection murmur. Abdomen: Soft, positive bowel sounds no organomegaly. Extremities: Trace to 1+ edema, intact distal pulses. Labs: WBC 22.2, hemoglobin 12.5, pH 7.07 with pCO2 of 67, pO2 114. Potassium is 2.8, BUN 25, creatinine 1.7. Plasma lactic 10.4. Troponin 0.127, NT proBNP 8610. Chest x-ray with evidence of congestion and evidence of pulmonary edema. Computed tomography scan of the head revealed no evidence of intracranial hemorrhage EKG: Initial EKG shows atrial fibrillation with evidence of inferolateral wall myocardial infarction and ST segment depression on the lateral leads Impression: 1. Cardiac arrest with prolonged CPR and severe acidosis 2. Acute STEMI with inferolateral wall EKG changes 3. Status post CABG 20 years ago 4. Acute renal shutdown with anuria 5. Probable anoxic encephalopathy 6. Face hematoma with no fractures Plan: 1. In view of the prolonged CPR patient is not a candidate for acute coronary angiography 2. Obtain an echocardiogram with Doppler 3. Supportive care 4. Try to obtain prior records 5. Prognosis is very poor, I discussed the findings with the family at length. Depending on her progress further recommendations will be made, thank you for this consult we will follow with you. Past Medical History Past Medical History: Coronary Artery Disease (CAD), Hypertension, Sleep Apnea/CPAP/BIPAP Additional Past Medical History / Comment(s): Sciatica History of Any Multi-Drug Resistant Organisms: None Reported Past Surgical History: Coronary Bypass/CABG Additional Past Surgical History / Comment(s): Early 1999s (2002 or 2004) Past Anesthesia/Blood Transfusion Reactions: No Reported Reaction Past Psychological History: No Psychological Hx Reported Smoking Status: Former smoker Medications and Allergies Allergies Allergy/AdvReac Type Severity Reaction Status Date / Time Unable to Assess Allergy Verified 02/14/23 00:55 Physical Exam Vitals: Vital Signs Temp Pulse Resp BP Pulse Ox FiO2 02/14/23 07:00 82 24 120/76 95 100 02/14/23 06:45 80 24 95/62 91 L 02/14/23 06:30 82 24 122/79 92 L 02/14/23 06:15 85 20 108/58 96 02/14/23 06:00 90 29 H 101/79 96 100 02/14/23 05:45 20 127/77 97 02/14/23 05:30 92 31 H 108/88 98 02/14/23 05:15 80 24 88/41 92 L 02/14/23 05:00 94.2 F L 84 26 H 137/79 97 100 02/14/23 04:46 100 02/14/23 04:45 86 25 H 98 02/14/23 04:00 60 02/14/23 03:30 105 H 11 L 173/115 99 02/14/23 03:20 98 14 175/123 100 02/14/23 03:10 96 14 171/109 100 02/14/23 03:00 93 18 167/120 100 02/14/23 02:50 91 7 L 169/101 100 02/14/23 02:40 91 8 L 171/121 99 02/14/23 02:38 100 02/14/23 02:30 90 8 L 147/132 98 02/14/23 02:20 92 10 L 117/100 93 L 02/14/23 02:10 86 0 L 119/74 100 02/14/23 01:12 100 02/14/23 01:06 100 Intake and Output 02/13/23 02/14/23 02/14/23 22:59 06:59 14:59 Intake Total 1233.755 81.2 Output Total 0 0 Balance 1233.755 81.2 Intake: IV 1050 50 Potassium Chloride 20 meq 50 50 In Water For Injection 1 100ml.bag @ 50 mls/hr IVPB Q2H [facility] Rx#: [id number] Sodium Chloride 0.9% 1, 1000 000 ml @ 999 mls/hr IV . Q1H1M [facility] Rx#:[id number] Intake, IV Titration 183.755 31.2 Amount EPINEPHrine 4 mg In 154.987 Dextrose 5% in Water 250 ml @ 0.03 MCG/KG/MIN 10. 406 mls/hr IV .Q24H [facility] Rx#:[id number] propofoL 1,000 mg In 28.768 31.2 Empty Bag 1 bag @ 15 MCG/ KG/MIN 8.259 mls/hr IV . Q12H7M [facility] Rx#:[id number] Output: Urine 0 0 Other: Voiding Method Indwelling Catheter Weight 91.762 kg Results 02/14/23 04:46 02/14/23 04:46 Cardiac Enzymes 02/14/23 02/14/23 Range/Units 00:49 00:49 AST 139 H (14-36) U/L Troponin I 0.127 H* (0.000-0.034) ng/mL Coagulation 02/14/23 Range/Units 00:49 PT 13.3 H (10.0-12.5) sec APTT 40.4 H (22.0-30.0) sec CBC 02/14/23 02/14/23 Range/Units 00:49 04:46 WBC 11.9 H 22.2 H (3.8-10.6) k/uL RBC 4.13 4.08 (3.80-5.40) m/uL Hgb 12.8 12.5 (11.4-16.0) gm/dL Hct 41.5 39.9 (34.0-46.0) % Plt Count 132 L 177 (150-450) k/uL Comprehensive Metabolic Panel 02/14/23 02/14/23 Range/Units 00:49 04:46 Sodium 143 145 (137-145) mmol/L Potassium 3.2 L 2.8 L (3.5-5.1) mmol/L Chloride 109 H 108 H (98-107) mmol/L Carbon Dioxide 13 L 18 L (22-30) mmol/L BUN 18 H 25 H (7-17) mg/dL Creatinine 1.42 H 1.70 H (0.52-1.04) mg/dL Glucose 308 H 282 H (74-99) mg/dL Calcium 8.4 7.8 L (8.4-10.2) mg/dL AST 139 H (14-36) U/L ALT 115 H (4-34) U/L Alkaline Phosphatase 124 (38-126) U/L Total Protein 6.7 (6.3-8.2) g/dL Albumin 3.5 (3.5-5.0) g/dL Current Medications Generic Name Dose Route Start Last Admin Trade Name Freq PRN Reason Stop Dose Admin Albuterol/Ipratropium 3 ml 02/14/23 02:51 Ipratropium-Albuterol 3 Ml Neb INHALATION RT-Q4H PRN Shortness Of Breath Or Wheezing Chlorhexidine Gluconate 15 ml 02/14/23 09:00 Chlorhexidine Gluconate 15 Ml Cup MUCOUS MEM BID JADIEL Heparin Sodium (Porcine) 0 unit 02/14/23 01:00 Heparin Sodium 1,000 Un/Ml (10ml Vl) IV PER PROTOCOL PRN Low PTT Protocol Heparin Sodium/Sodium Chloride 250 mls @ 10.002 mls/hr 02/14/23 01:00 02/14/23 03:31 25,000 unit/ Sodium Chloride IV 10.9 units/kg/hr .Q24H JADIEL 10.002 mls/hr Administration Protocol 10.9 UNITS/KG/HR Propofol 1,000 mg/ IV Solution 100 mls @ 8.259 mls/hr 02/14/23 03:45 02/14/23 07:08 IV 50 mcg/kg/min .Q12H7M JADIEL 27.529 mls/hr Administration Protocol 15 MCG/KG/MIN Vasopressin 60 unit/ Sodium 153 mls @ 6.12 mls/hr 02/14/23 05:45 02/14/23 05:42 Chloride IV 0.04 units/min .Q24H JADIEL 6.12 mls/hr Administration Protocol 0.04 UNITS/MIN Potassium Chloride 20 meq/ IV 100 mls @ 50 mls/hr 02/14/23 06:00 02/14/23 06:05 Solution IVPB 02/14/23 11:59 50 mls/hr Q2H [facility] Administration Protocol Epinephrine HCl 4 mg/ Dextrose 250 mls @ 10.323 mls/hr 02/14/23 08:00 /Water IV .Q24H J[facility] Protocol 0.03 MCG/KG/MIN Sodium Chloride 1,000 mls @ 999 mls/hr 02/14/23 07:13 02/14/23 07:22 Saline 0.9% IV 02/14/23 08:13 999 mls/hr .Q1H1M ONE Administration Miscellaneous Information 1 each 02/14/23 05:31 Potassium Replacement Protocol 1 Each Misc MISCELLANE DAILY PRN Per Protocol Protocol Naloxone HCl 0.2 mg 02/14/23 02:51 Naloxone 0.4 Mg/Ml 1 Ml Vial IV Q2M PRN Opioid Reversal Intake and Output 02/13/23 02/14/23 02/14/23 22:59 06:59 14:59 Intake Total 1233.755 81.2 Output Total 0 0 Balance 1233.755 81.2 Intake: IV 1050 50 Potassium Chloride 20 meq 50 50 In Water For Injection 1 100ml.bag @ 50 mls/hr IVPB Q2H [facility] Rx#: [id number] Sodium Chloride 0.9% 1, 1000 000 ml @ 999 mls/hr IV . Q1H1M [facility] Rx#:[id number] Intake, IV Titration 183.755 31.2 Amount EPINEPHrine 4 mg In 154.987 Dextrose 5% in Water 250 ml @ 0.03 MCG/KG/MIN 10. 406 mls/hr IV .Q24H [facility] Rx#:[id number] propofoL 1,000 mg In 28.768 31.2 Empty Bag 1 bag @ 15 MCG/ KG/MIN 8.259 mls/hr IV . Q12H7M [facility] Rx#:[id number] Output: Urine 0 0 Other: Voiding Method Indwelling Catheter Weight 91.762 kg 02/14/23 04:46 02/14/23 04:46
[2023-02-14] MEDS: EPINEPHrine 4 MG in DEXTROSE 5% IN WATER 250 ML IV SCH ×8 (07:45→22:36)
--- NOTE | 2023-02-14 08:26 | XR ---
EXAMINATION TYPE: XR chest 1V portable DATE OF EXAM: 02/14/2023 5:24 AM CLINICAL INDICATION:Female, 77 years old with history of Tube placement; [facility] COMPARISON: Chest radiographs from same day. TECHNIQUE: XR chest 1V portable Frontal view of the chest. FINDINGS: Lungs/Pleura: Similar left-sided airspace opacities from same day. There is no evidence of pleural ef fusion, focal consolidation, or pneumothorax. Pulmonary vascularity: Unremarkable. Heart/mediastinum: Cardiomediastinal silhouette is enlarged and stable. Atherosclerotic calcificatio ns are seen in the aorta. Musculoskeletal: No acute osseous pathology. There is lower spine fixation hardware is present. Other findings: None Lines/Tubes: Endotracheal tube with distal tip 5.2 cm above the mary. Nasogastric tube with its distal tip and side-port projecting under the diaphragm. IMPRESSION: 1. Endotracheal and nasogastric tubes appear in satisfactory position. 2. Predominantly left-sided airspace opacities could represent pulmonary edema versus pneumonia.
[2023-02-14] MEDS: CHLORHEXIDINE GLUCONATE 15 ML CUP MUCOUS MEM SCH ×2 (08:29→21:19)
--- NOTE | 2023-02-14 08:56 | P.PN ---
Subjective Progress Note Date: 02/14/23 The patient is a 77-year-old female who presented to the hospital after in-home cardiac arrest. Unknown downtime, however CPR started by EMS lasted 30 minutes requiring defibrillation 2. Initial EKG on arrival to the emergency room showed atrial fibrillation with ST depression in the lateral leads, but she converted back to sinus mechanism. Due to prolonged downtime and poor neurological status, patient's is not a candidate for coronary angiography. The patient is currently resting comfortably sedated in the ICU. She is ventilated and requires vasopressin and epinephrine for cardiogenic shock. At the time of my examination the patient's was undergoing echocardiogram. GENERAL: Ill-appearing, well-nourished. Currently sedated on ventilator NECK: Supple without JVD or thyromegaly. LUNGS: Breath sounds diminished to auscultation bilaterally. Respiration equal and unlabored. HEART: Regular rate and rhythm without murmurs, rubs or gallops. S1 and S2 heard. EXTREMITIES: Normal range of motion, mild edema. No clubbing or cyanosis. Peripheral pulses intact and strong. TELEMETRY: Sinus rhythm LABS: WBC 22.2, hemoglobin 12.5, hematocrit 39.9, platelet 177, sodium 145, potassium 2.8, BUN 25, creatinine 1.7 lactic 9.6, phosphorus 7.6, AST 139, ALT 1:15, troponin 11.6, BNP 8610 IMPRESSION: Cardiac arrest with prolonged CPR and severe acidosis Acute ST elevated myocardial infarction, inferolateral History of coronary artery disease with prior CABG Acute renal failure Status post mechanical fall, facial hematoma PLAN: Awaiting official results of echocardiogram Continue supportive treatment for cardiogenic shock and respiratory failure Further recommendations based on clinical course Overall poor prognosis I am dictating on behalf of Dr Sanjay Ritchie's history/physical and as sessment/plan. Objective - Vital Signs Vital signs: Vital Signs Temp 94.2 F L 02/14/23 05:00 Pulse 77 02/14/23 08:36 Resp 24 02/14/23 07:00 BP 120/76 02/14/23 07:00 Pulse Ox 95 02/14/23 07:00 FiO2 100 02/14/23 07:38 Intake & Output 02/13/23 02/14/23 02/14/23 18:59 06:59 18:59 Intake Total 1233.755 81.2 Output Total 0 0 Balance 1233.755 81.2 Weight 91.762 kg Intake: IV 1050 50 Potassium Chloride 20 meq 50 50 In Water For Injection 1 100ml.bag @ 50 mls/hr IVPB Q2H [facility] Rx#: [id number] Sodium Chloride 0.9% 1, 1000 000 ml @ 999 mls/hr IV . Q1H1M [facility] Rx#:[id number] Intake, IV Titration 183.755 31.2 Amount EPINEPHrine 4 mg In 154.987 Dextrose 5% in Water 250 ml @ 0.03 MCG/KG/MIN 10. 406 mls/hr IV .Q24H [facility] Rx#:[id number] propofoL 1,000 mg In 28.768 31.2 Empty Bag 1 bag @ 15 MCG/ KG/MIN 8.259 mls/hr IV . Q12H7M [facility] Rx#:[id number] Output: Urine 0 0 Other: Voiding Method Indwelling Catheter - Labs CBC & Chem 7: 02/14/23 04:46 02/14/23 04:46 Labs: Abnormal Lab Results - Last 24 Hours (Table) 02/14/23 02/14/23 02/14/23 Range/Units 00:49 00:49 00:49 WBC 11.9 H (3.8-10.6) k/uL MCV 100.5 H (80.0-100.0) fL MCHC 30.9 L (31.0-37.0) g/dL Plt Count 132 L (150-450) k/uL Neutrophils # (1.3-7.7) k/uL Lymphocytes # 5.4 H (1.0-4.8) k/uL PT 13.3 H (10.0-12.5) sec INR 1.3 H (<1.2) APTT 40.4 H (22.0-30.0) sec ABG pH (7.35-7.45) ABG pCO2 (35-45) mmHg ABG pO2 (83-108) mmHg ABG HCO3 (21-25) mmol/L ABG O2 Saturation (94-97) % Potassium 3.2 L (3.5-5.1) mmol/L Chloride 109 H (98-107) mmol/L Carbon Dioxide 13 L (22-30) mmol/L BUN 18 H (7-17) mg/dL Creatinine 1.42 H (0.52-1.04) mg/dL Glucose 308 H (74-99) mg/dL POC Glucose (mg/dL) (70-110) mg/dL Plasma Lactic Acid Klever (0.7-2.0) mmol/L Calcium (8.4-10.2) mg/dL Phosphorus 7.6 H (2.5-4.5) mg/dL AST 139 H (14-36) U/L ALT 115 H (4-34) U/L Troponin I (0.000-0.034) ng/mL 02/14/23 02/14/23 02/14/23 Range/Units 00:49 00:49 02:25 WBC (3.8-10.6) k/uL MCV (80.0-100.0) fL MCHC (31.0-37.0) g/dL Plt Count (150-450) k/uL Neutrophils # (1.3-7.7) k/uL Lymphocytes # (1.0-4.8) k/uL PT (10.0-12.5) sec INR (<1.2) APTT (22.0-30.0) sec ABG pH 7.07 L* (7.35-7.45) ABG pCO2 67 H (35-45) mmHg ABG pO2 114 H (83-108) mmHg ABG HCO3 19 L (21-25) mmol/L ABG O2 Saturation (94-97) % Potassium (3.5-5.1) mmol/L Chloride (98-107) mmol/L Carbon Dioxide (22-30) mmol/L BUN (7-17) mg/dL Creatinine (0.52-1.04) mg/dL Glucose (74-99) mg/dL POC Glucose (mg/dL) (70-110) mg/dL Plasma Lactic Acid Klever 10.4 H* (0.7-2.0) mmol/L Calcium (8.4-10.2) mg/dL Phosphorus (2.5-4.5) mg/dL AST (14-36) U/L ALT (4-34) U/L Troponin I 0.127 H* (0.000-0.034) ng/mL 01/05/24 01/05/24 01/05/24 Range/Units 04:33 04:46 04:46 WBC 22.2 H (3.8-10.6) k/uL MCV (80.0-100.0) fL MCHC (31.0-37.0) g/dL Plt Count (150-450) k/uL Neutrophils # 18.1 H (1.3-7.7) k/uL Lymphocytes # (1.0-4.8) k/uL PT (10.0-12.5) sec INR (<1.2) APTT (22.0-30.0) sec ABG pH (7.35-7.45) ABG pCO2 (35-45) mmHg ABG pO2 (83-108) mmHg ABG HCO3 (21-25) mmol/L ABG O2 Saturation (94-97) % Potassium (3.5-5.1) mmol/L Chloride (98-107) mmol/L Carbon Dioxide (22-30) mmol/L BUN (7-17) mg/dL Creatinine (0.52-1.04) mg/dL Glucose (74-99) mg/dL POC Glucose (mg/dL) 219 H (70-110) mg/dL Plasma Lactic Acid Klever 10.1 H* (0.7-2.0) mmol/L Calcium (8.4-10.2) mg/dL Phosphorus (2.5-4.5) mg/dL AST (14-36) U/L ALT (4-34) U/L Troponin I (0.000-0.034) ng/mL 02/14/23 02/14/23 02/14/23 Range/Units 04:46 06:32 07:49 WBC (3.8-10.6) k/uL MCV (80.0-100.0) fL MCHC (31.0-37.0) g/dL Plt Count (150-450) k/uL Neutrophils # (1.3-7.7) k/uL Lymphocytes # (1.0-4.8) k/uL PT (10.0-12.5) sec INR (<1.2) APTT (22.0-30.0) sec ABG pH 7.22 L (7.35-7.45) ABG pCO2 46 H (35-45) mmHg ABG pO2 78 L (83-108) mmHg ABG HCO3 19 L (21-25) mmol/L ABG O2 Saturation 93.1 L (94-97) % Potassium 2.8 L (3.5-5.1) mmol/L Chloride 108 H (98-107) mmol/L Carbon Dioxide 18 L (22-30) mmol/L BUN 25 H (7-17) mg/dL Creatinine 1.70 H (0.52-1.04) mg/dL Glucose 282 H (74-99) mg/dL POC Glucose (mg/dL) (70-110) mg/dL Plasma Lactic Acid Klever 9.6 H* (0.7-2.0) mmol/L Calcium 7.8 L (8.4-10.2) mg/dL Phosphorus (2.5-4.5) mg/dL AST (14-36) U/L ALT (4-34) U/L Troponin I (0.000-0.034) ng/mL 02/14/23 Range/Units 07:49 WBC (3.8-10.6) k/uL MCV (80.0-100.0) fL MCHC (31.0-37.0) g/dL Plt Count (150-450) k/uL Neutrophils # (1.3-7.7) k/uL Lymphocytes # (1.0-4.8) k/uL PT (10.0-12.5) sec INR (<1.2) APTT (22.0-30.0) sec ABG pH (7.35-7.45) ABG pCO2 (35-45) mmHg ABG pO2 (83-108) mmHg ABG HCO3 (21-25) mmol/L ABG O2 Saturation (94-97) % Potassium (3.5-5.1) mmol/L Chloride (98-107) mmol/L Carbon Dioxide (22-30) mmol/L BUN (7-17) mg/dL Creatinine (0.52-1.04) mg/dL Glucose (74-99) mg/dL POC Glucose (mg/dL) (70-110) mg/dL Plasma Lactic Acid Klever (0.7-2.0) mmol/L Calcium (8.4-10.2) mg/dL Phosphorus (2.5-4.5) mg/dL AST (14-36) U/L ALT (4-34) U/L Troponin I 11.600 H* (0.000-0.034) ng/mL
[2023-02-14] MEDS ORDERED: SODIUM BICARB 8.4% 50 ML SYR (1 MEQ/ML) IV STA ×2 (09:06→18:41)
[2023-02-14 09:16] LABS: ABG Base Excess -5.6 mmol/L; ABG HCO3 21 mmol/L (21-25); ABG Oxygen Saturation 94.1 % (94-97); ABG PCO2 43 mmHg (35-45); ABG PH 7.29 (7.35-7.45); ABG PO2 75 mmHg (83-108); ABG TCO2 22 mmol/L (19-24)
[2023-02-14 09:20] LABS: Allen Test Performed? no
[2023-02-14 09:26] LABS: Glucose,Whole Blood 309 mg/dL (70-110)
[2023-02-14] MEDS ORDERED: DEXTROSE 50% SYRINGE 50 ML IVP PRN ×2 (09:26)
[2023-02-14 10:37] LABS: Glucose,Whole Blood 320 mg/dL (70-110)
--- NOTE | 2023-02-14 10:49 | CA ---
Transthoracic Echo Report Name: Leeanna Whitaker Age: 77 Gender: F : 1945 Exam Date: 02/14/2023 09:00 Exam Location: [place] [place] [facility] Ht (in): 66 Wt (lb): 202 Ordering Physician: Eduar Bustos MD ([id number]) Attending/Referring Phys: Program Research Specialist Michael Wang Procedure CPT: Indications: stemi Cardiac Hx: Technical Quality: Fair Contrast 1: Total Dose (mL): Contrast 2: Total Dose (mL): MEASUREMENTS (Male / Female) Normal Values 2D ECHO LV Diastolic Diameter PLAX 4.0 cm 4.2 - 5.9 / 3.9 - 5.3 cm LV Systolic Diameter PLAX 3.0 cm IVS Diastolic Thickness 1.2 cm 0.6 - 1.0 / 0.6 - 0.9 cm LVPW Diastolic Thickness 1.1 cm 0.6 - 1.0 / 0.6 - 0.9 cm LV Relative Wall Thickness 0.6 RV Internal Dim ED PLAX 3.3 cm LVOT Diameter 1.9 cm Aortic Root Diameter 3.0 cm LA Systolic Diameter LX 2.6 cm 3.0 - 4.0 / 2.7 - 3.8 cm LV Diastolic Volume MOD BP 30.2 cm??? 67 - 155 / 56 - 104 cm??? LV Systolic Volume MOD BP 12.5 cm??? 22 - 58 / 19 - 49 cm??? LV Ejection Fraction MOD BP 58.7 % >= 55 % LV Cardiac Index MOD BP 659.6 cm???/min???m??? LV Diastolic Volume MOD 4C 22.5 cm??? LV Systolic Volume MOD 4C 10.5 cm??? LV Ejection Fraction MOD 4C 53.4 % LV Cardiac Index MOD 4C 447.0 cm???/min???m??? LV Diastolic Length 4C 6.4 cm LV Systolic Length 4C 6.1 cm LV Diastolic Volume MOD 2C 39.6 cm??? LV Systolic Volume MOD 2C 14.0 cm??? LV Ejection Fraction MOD 2C 64.5 % LV Cardiac Index MOD 2C 950.1 cm???/min???m??? LV Diastolic Length 2C 6.6 cm LV Systolic Length 2C 5.7 cm LA Volume 37.4 cm??? 18 - 58 / 22 - 52 cm??? LA Volume Index 17.8 cm???/m??? 16 - 28 cm???/m??? DOPPLER AV Peak Velocity 150.8 cm/s AV Peak Gradient 9.1 mmHg LVOT Peak Velocity 90.1 cm/s LVOT Peak Gradient 3.3 mmHg LVOT Velocity Time Integral 15.5 cm LVOT Stroke Volume 45.3 cm??? LVOT Stroke Volume Index 22.5 ml/m??? LVOT Cardiac Index 1683.3 cm???/min???m??? AV Area Cont Eq pk 1.7 cm??? MV Peak Velocity 78.6 cm/s MV Peak Gradient 2.5 mmHg MV Mean Velocity 36.7 cm/s MV Mean Gradient 0.7 mmHg MV Velocity Time Integral 20.5 cm Mitral E Point Velocity 50.3 cm/s Mitral A Point Velocity 57.4 cm/s Mitral E to A Ratio 0.9 MV Deceleration Time 226.9 ms TR Peak Velocity 369.6 cm/s TR Peak Gradient 54.6 mmHg Right Ventricular Systolic Press 59.6 mmHg PV Peak Velocity 104.5 cm/s PV Peak Gradient 4.4 mmHg FINDINGS Left Ventricle Normal LV size. Mild concentric LVH. Septal Akinesis. Left ventricular ejection fraction is estimated at 50-55 %. Right Ventricle Moderate right ventricular dilatation. Hypokinetic right ventricular free wall. RVSP 60mmHg. Right Atrium Normal right atrial size. Left Atrium Normal left atrial size. Mitral Valve Structurally normal mitral valve. Aortic Valve Mild to moderate AV calcification. Tricuspid Valve Structurally normal tricuspid valve. Moderate TR. Pulmonic Valve Pulmonic valve not well visualized. Mild to moderate PI. Pericardium Normal pericardium. Aorta Normal size aortic root. CONCLUSIONS Normal LV size and preserved systolic function. Atypical septal motion. Right ventricular enlargement moderate pulmonary hypertension aortic valve sclerosis without restriction. Mitral annular calcification. No pericardial effusion Previewed by: Dr. Robert Castro MD (Electronically Signed) Final Date: 14 February 2023 10:48
[2023-02-14] MEDS: INSULIN REGULAR 100 UNIT in SODIUM CHLORIDE 0.9% 100 ML IV SCH ×2 (10:59→18:46)
[2023-02-14] MEDS: PANTOPRAZOLE 40 MG/10 ML VIAL IVP SCH (11:03)
[2023-02-14] MEDS: IPRATROPIUM-ALBUTEROL 3 ML NEB INHALATION SCH ×3 (11:15→20:29)
[2023-02-14 12:00] LABS: Glucose,Whole Blood 273 mg/dL (70-110)
[2023-02-14 13:07] LABS: Glucose,Whole Blood 309 mg/dL (70-110)
--- NOTE | 2023-02-14 13:13 | OP ---
OPERATIVE REPORT DATE OF SERVICE : PROCEDURE PERFORMED: Placement of right brachial arterial line. PREOPERATIVE DIAGNOSES: Cardiac arrest and respiratory failure. POSTOPERATIVE DIAGNOSES: Cardiac arrest and respiratory failure. INDICATIONS FOR PROCEDURE: Hemodynamic instability, patient needed an arterial line for hemodynamic monitoring and she is requiring pressors. ANESTHESIA USED: None deployed. DESCRIPTION OF PROCEDURE: The patient was placed in supine position, and the procedure was done on emergent basis. The right brachial region was prepared in a sterile fashion. Drapes were applied. The right brachial artery was palpated, easily cannulated and a guidewire was placed. A Cook catheter was inserted over the guidewire, and the guidewire was removed. Good blood flow, good waveform noted, no complications, line was secured using 3.0 silk sutures. MMODL / IJN: [id number] /
[2023-02-14 13:30] LABS: African American GFR (CKD) 24 (>60 ml/min/1.73 sqM); Anion Gap 19 mmol/L; Blood Urea Nitrogen 30 mg/dL (7-17); Calcium 7.1 mg/dL (8.4-10.2); Carbon Dioxide 14 mmol/L (22-30); Chloride 112 mmol/L (98-107); Glucose 308 mg/dL (74-99); Non-African American GFR(CKD) 21 (>60 ml/min/1.73 sqM); Potassium 3.4 mmol/L (3.5-5.1); Sodium 145 mmol/L (137-145)
--- NOTE | 2023-02-14 14:19 | P.CNPUL ---
History of Present Illness Consult date: 02/14/23 Requesting physician: Peterson Shine Reason for consult: other (Cardiac arrest) Chief complaint: Cardiac arrest History of present illness: This is a 77-year-old -[place] female known history of coronary artery disease and previous CABG over 20 years ago. Patient sustained a sudden cardiac arrest yesterday, Found His Mother on the Floor, this was apparently a witnessed collapse, patient sustained some laceration and hematoma over the left periorbital area requiring steri trips placed by the ER physician. EMS performed CPR for about 30 minutes, and she had cardioversion 2. Patient was intubated, and she was brought into the ER and she was noted upon arrival in atrial fibrillation. Then went back into sinus rhythm, initial rhythm according to EMS was asystole. But clearly from the records patient received at least 11 rounds of epinephrine all in all, and she had to be resuscitated again in the ER at least a couple of times. Patient remained hypotensive and transferred to the ICU and she is now requiring epinephrine at 0.12 mcg/kg/m patient is also requiring vasopressin at 0.04 units per minute patient is on heparin drip as per cardiology she is also on propofol at 50 mcg/kg/m. Patient is intubated and mechanically ventilated she is on assist control rate of 24 tidal volume 450 FiO2 on the percent and PEEP of 5 ABG showed a pO2 of 78 pCO2 46 pH of 7.22 initial her vent settings were adjusted and the patient received 1 amp of bicarb rate increased to 28, and repeat ABG showed a pO2 of 75 pCO2 43 pH of 7.29. Looking at the medications given during her resuscitation patient received 11 A of epinephrine she received 3 A of bicarb and she was defibrillated 2. Hence down time is basically over 60 minutes cardiology felt that the patient had significant anoxic injury, and did not feel that the patient should have cardiac catheterization at this point. Awaiting to determine whether the patient is going to show any signs of neurological recovery. I did see the patient in the ICU, and I discussed her condition with the family, discussed the different o ptions of treatment including the option of continuing full support and keeping the patient full code versus continuing the same but changing the CODE STATUS to DO NOT RESUSCITATE versus comfort care measures and letting the patient passed comfortably peacefully and dignified. Family is yet to decide on different options that where discussed Review of Systems ROS unobtainable: due to endotracheal tube Past Medical History Past Medical History: Coronary Artery Disease (CAD), Hypertension, Sleep Apnea/CPAP/BIPAP Additional Past Medical History / Comment(s): Sciatica History of Any Multi-Drug Resistant Organisms: None Reported Past Surgical History: Coronary Bypass/CABG Additional Past Surgical History / Comment(s): Early (2002 or 2004) Past Anesthesia/Blood Transfusion Reactions: No Reported Reaction Past Psychological History: No Psychological Hx Reported Smoking Status: Former smoker - Past Family History Mother Family Medical History: No Reported History Medications and Allergies Home Medications Medication Instructions Recorded Confirmed Type Metoprolol Tartrate [Lopressor] 25 mg PO BID 07/23/13 02/14/23 History Irbesartan 300 mg PO DAILY 04/08/22 02/14/23 History Latanoprost/Pf [Latanoprost 0.005% 1 drop BOTH EYES HS 04/08/22 02/14/23 History Eye Drop] [place]-3 Fatty Acids [[place]-3] 1,000 mg PO DAILY 04/08/22 02/14/23 History Albuterol Sulfate [Albuterol 2 puff PO RT-Q4H PRN 02/14/23 02/14/23 History Sulfate Hfa] Aspirin EC [Ecotrin Low Dose] 81 mg PO DAILY 02/14/23 02/14/23 History Ergocalciferol [Vitamin D2 (1250 1,250 mcg PO QMONTHLY 02/14/23 02/14/23 History Mcg = 77500 Iu)] Spironolactone 25 mg PO DAILY 02/14/23 02/14/23 History amLODIPine [Norvasc] 10 mg PO DAILY 02/14/23 02/14/23 History Allergies Allergy/AdvReac Type Severity Reaction Status Date / Time No Known Allergies Allergy Verified 02/14/23 09:12 Physical Exam Vitals: Vital Signs Temp Pulse Resp BP Pulse Ox FiO2 02/14/23 13:00 87 28 H 99 02/14/23 12:45 87 28 H 100 02/14/23 12:30 86 28 H 100 02/14/23 12:15 85 28 H 98 02/14/23 12:00 97.6 F 84 28 H 98 85 02/14/23 11:45 83 28 H 96 02/14/23 11:30 81 28 H 95 02/14/23 11:26 80 02/14/23 11:15 80 28 H 97 02/14/23 11:12 85 02/14/23 11:00 80 28 H 99 02/14/23 10:45 80 0 L 96 02/14/23 10:30 80 0 L 96 02/14/23 10:15 77 0 L 96 02/14/23 10:00 97.5 F L 78 28 H 92 L 02/14/23 09:45 77 28 H 95 02/14/23 09:30 78 28 H 94 L 02/14/23 09:15 74 28 H 94 L 02/14/23 09:00 72 42 H 111/64 89 L 02/14/23 08:55 80 02/14/23 08:45 76 24 113/69 91 L 02/14/23 08:36 77 02/14/23 08:30 76 24 117/72 92 L 02/14/23 08:15 79 24 118/71 92 L 02/14/23 08:00 78 24 108/70 91 L 100 02/14/23 07:45 79 24 90/60 90 L 02/14/23 07:38 100 02/14/23 07:30 80 24 92/60 96 02/14/23 07:15 79 24 120/76 92 L 02/14/23 07:00 82 24 120/76 95 100 02/14/23 06:45 80 24 95/62 91 L 02/14/23 06:30 82 24 122/79 92 L 02/14/23 06:15 85 20 108/58 96 02/14/23 06:00 90 29 H 101/79 96 100 02/14/23 05:45 20 127/77 97 02/14/23 05:30 92 31 H 108/88 98 02/14/23 05:15 80 24 88/41 92 L 02/14/23 05:00 94.2 F L 84 26 H 137/79 97 100 02/14/23 04:46 100 02/14/23 04:45 86 25 H 98 02/14/23 04:00 60 02/14/23 03:30 105 H 11 L 173/115 99 02/14/23 03:20 98 14 175/123 100 02/14/23 03:10 96 14 171/109 100 02/14/23 03:00 93 18 167/120 100 02/14/23 02:50 91 7 L 169/101 100 02/14/23 02:40 91 8 L 171/121 99 02/14/23 02:38 100 02/14/23 02:30 90 8 L 147/132 98 02/14/23 02:20 92 10 L 117/100 93 L 02/14/23 02:10 86 0 L 119/74 100 02/14/23 01:12 100 02/14/23 01:06 100 Intake and Output 02/13/23 02/14/23 02/14/23 22:59 06:59 14:59 Intake Total 1233.755 765.361 Output Total 0 0 Balance 1233.755 765.361 Intake: IV 1050 370 .9 @ KVO 120 Potassium Chloride 20 meq 50 250 In Water For Injection 1 100ml.bag @ 50 mls/hr IVPB Q2H [facility] Rx#: [id number] Sodium Chloride 0.9% 1, 1000 000 ml @ 999 mls/hr IV . Q1H1M [facility] Rx#:[id number] Intake, IV Titration 183.755 395.361 Amount EPINEPHrine 4 mg In 201.589 Dextrose 5% in Water 250 ml @ 0.03 MCG/KG/MIN 10. 323 mls/hr IV .Q24H [facility] Rx#:[id number] EPINEPHrine 4 mg In 154.987 Dextrose 5% in Water 250 ml @ 0.03 MCG/KG/MIN 10. 406 mls/hr IV .Q24H [facility] Rx#:[id number] Insulin Regular 100 unit 9.007 In Sodium Chloride 0.9% 100 ml @ Titrate IV .Q0M [facility] Rx#:[id number] propofoL 1,000 mg In 28.768 184.765 Empty Bag 1 bag @ 15 MCG/ KG/MIN 8.259 mls/hr IV . Q12H7M [facility] Rx#:[id number] Output: Urine 0 0 Other: Voiding Method Indwelling Catheter Weight 91.762 kg 91.762 kg ABP, PAP, CO, CI - Last 8 Hours Arterial Blood Pressure 124/62 Arterial Blood Pressure 122/61 Arterial Blood Pressure 121/61 Arterial Blood Pressure 113/58 Arterial Blood Pressure 115/59 Arterial Blood Pressure 111/57 Arterial Blood Pressure 118/60 Arterial Blood Pressure 113/59 Arterial Blood Pressure 110/58 Arterial Blood Pressure 110/56 Arterial Blood Pressure 104/57 Arterial Blood Pressure 105/57 Arterial Blood Pressure 111/59 Arterial Blood Pressure 116/61 Arterial Blood Pressure 118/63 Arterial Blood Pressure 100/60 Physical Exam: Revealed a 77-year-old female intubated mechanically ventilated sedated Head: There is evidence of large periorbital hematoma on the left side with laceration noted medial to the left eye, losing blood. HEENT:[Neck is supple.] [No neck masses.] [No thyromegaly.] [No JVD.] Endotracheal tube and orogastric tubes are intact Chest: Symmetrical chest expansion, crackles at the bases left more so than rig ht. Cardiac Exam: Distant S1 and S2, no S3 gallop, 2/6 systolic murmur thought the precordium. Abdomen: [Soft, nontender, no megaly, no rebound, no guarding, normal bowel sounds.] Extremities: [No clubbing, no edema, no cyanosis.] Diminished distal pulses. Neurological Exam: Patient is unresponsive to any stimuli. Pupils are pinpoint, nonreactive. Psychiatric: Could not be assessed. Skin: No rashes. However the patient does seem to have a 5 cm laceration medial to the left thigh with periorbital hematoma Results - Laboratory Findings CBC and BMP: 02/14/23 04:46 02/14/23 13:05 ABG ABG pH 7.29 (7.35-7.45) L 02/14/23 09:12 ABG pCO2 43 mmHg (35-45) 02/14/23 09:12 ABG pO2 75 mmHg (83-108) L 02/14/23 09:12 ABG O2 Saturation 94.1 % (94-97) 02/14/23 09:12 PT/INR, D-dimer PT 13.3 sec (10.0-12.5) H 02/14/23 00:49 INR 1.3 (<1.2) H 02/14/23 00:49 Abnormal lab findings: Abnormal Labs 02/14/23 02/14/23 02/14/23 00:49 00:49 00:49 WBC 11.9 H MCV 100.5 H MCHC 30.9 L Plt Count 132 L Neutrophils # Lymphocytes # 5.4 H PT 13.3 H INR 1.3 H APTT 40.4 H ABG pH ABG pCO2 ABG pO2 ABG HCO3 ABG O2 Saturation Potassium 3.2 L Chloride 109 H Carbon Dioxide 13 L BUN 18 H Creatinine 1.42 H Glucose 308 H POC Glucose (mg/dL) Plasma Lactic Acid Klever Calcium Phosphorus 7.6 H AST 139 H ALT 115 H Troponin I 02/14/23 02/14/23 02/14/23 00:49 00:49 02:25 WBC MCV MCHC Plt Count Neutrophils # Lymphocytes # PT INR APTT ABG pH 7.07 L* ABG pCO2 67 H ABG pO2 114 H ABG HCO3 19 L ABG O2 Saturation Potassium Chloride Carbon Dioxide BUN Creatinine Glucose POC Glucose (mg/dL) Plasma Lactic Acid Klever 10.4 H* Calcium Phosphorus AST ALT Troponin I 0.127 H* 02/14/23 02/14/23 02/14/23 04:33 04:46 04:46 WBC 22.2 H MCV MCHC Plt Count Neutrophils # 18.1 H Lymphocytes # PT INR APTT ABG pH ABG pCO2 ABG pO2 ABG HCO3 ABG O2 Saturation Potassium Chloride Carbon Dioxide BUN Creatinine Glucose POC Glucose (mg/dL) 219 H Plasma Lactic Acid Klever 10.1 H* Calcium Phosphorus AST ALT Troponin I 02/14/23 02/14/23 02/14/23 04:46 06:32 07:49 WBC MCV MCHC Plt Count Neutrophils # Lymphocytes # PT INR APTT ABG pH 7.22 L ABG pCO2 46 H ABG pO2 78 L ABG HCO3 19 L ABG O2 Saturation 93.1 L Potassium 2.8 L Chloride 108 H Carbon Dioxide 18 L BUN 25 H Creatinine 1.70 H Glucose 282 H POC Glucose (mg/dL) Plasma Lactic Acid Klever 9.6 H* Calcium 7.8 L Phosphorus AST ALT Troponin I 02/14/23 02/14/23 02/14/23 07:49 09:12 09:25 WBC MCV MCHC Plt Count Neutrophils # Lymphocytes # PT INR APTT ABG pH 7.29 L ABG pCO2 ABG pO2 75 L ABG HCO3 ABG O2 Saturation Potassium Chloride Carbon Dioxide BUN Creatinine Glucose POC Glucose (mg/dL) 309 H Plasma Lactic Acid Klever Calcium Phosphorus AST ALT Troponin I 11.600 H* 02/14/23 02/14/23 02/14/23 10:33 10:35 10:38 WBC MCV MCHC Plt Count Neutrophils # Lymphocytes # PT INR APTT ABG pH ABG pCO2 ABG pO2 ABG HCO3 ABG O2 Saturation Potassium Chloride Carbon Dioxide BUN Creatinine Glucose POC Glucose (mg/dL) 320 H Plasma Lactic Acid Klever 8.6 H* Calcium Phosphorus AST ALT Troponin I 13.000 H* 02/14/23 02/14/23 02/14/23 11:58 13:04 13:05 WBC MCV MCHC Plt Count Neutrophils # Lymphocytes # PT INR APTT ABG pH ABG pCO2 ABG pO2 ABG HCO3 ABG O2 Saturation Potassium 3.4 L Chloride 112 H Carbon Dioxide 14 L BUN 30 H Creatinine 2.19 H Glucose 308 H POC Glucose (mg/dL) 273 H 309 H Plasma Lactic Acid Klever Calcium 7.1 L Phosphorus AST ALT Troponin I - Diagnostic Findings Chest x-ray: image reviewed (Chest x-ray which I reviewed shows predominantly left sided airspace opacities consistent with pulmonary edema or aspiration pneumonia.) Additional studies: Echocardiogram showed evidence of normal LV size and preserved systolic functi on. There is evidence of right ventricular enlargement and moderate pulmonary hypertension with aortic valve sclerosis. Assessment and Plan Assessment: Impression: Acute hypoxic and hypercapnic respiratory failure secondary to cardiac arrest Prolonged CPR and severe metabolic and respiratory acidosis Acute ST elevation myocardial infarction with inferior lateral wall EKG changes Strongly suspect anoxic encephalopathy and anoxic brain injury Acute kidney injury/acute tubular necrosis secondary to prolonged CPR and hypotension Left facial hematoma secondary to fall/trauma History of coronary artery disease and previous CABG over 20 years ago. History of benign essential hypertension History of obstructive sleep apnea syndrome Hypotension requiring pressors/cardiogenic in nature. Recommendation: Continue ventilatory support Continue hemodynamic support Address nutritional support in the next 24 hours Continue heparin for now and monitor for any further signs of bleeding from the left facial hematoma GI prophylaxis Empiric antibiotics for presumptive aspiration Neurology to evaluate for anoxic brain injury Full discussion done with the family at bedside, and family to decide regarding the different options discussed above in my H&P. Patient is critically ill Critical care time is over 50 minutes Time with Patient: Greater than 30
[2023-02-14] MEDS ORDERED: CISATRACURIUM 2 MG/ML 5 ML VIAL IV ONE (14:21)
[2023-02-14 14:42] LABS: Glucose,Whole Blood 308 mg/dL (70-110)
[2023-02-14] MEDS: CISATRACURIUM 200 MG in SODIUM CHLORIDE 0.9% 180 ML IV SCH (14:44)
--- NOTE | 2023-02-14 16:04 | P.HPIM ---
History of Present Illness H&P Date: 02/14/23 Chief Complaint: Cardiac arrest 77-year-old female with history of CAD, status post CABG over 20 years ago who presented with cardiac arrest. The history is obtained from the records and the family. According to the son he came back home and found his mother on the floor, very weak dyspneic and shortly after had cardiac arrest. EMS started CPR that lasted for about 30 minutes requiring cardioversion 2. She was intubated. In the emergency room initially she was in atrial fibrillation and subsequently went back to sinus mechanism. The initial rhythm on the field according to the records was asystole. Patient had a large hematoma on the left side of the face. According to the family she has been doing well recently without any symptoms of angina pectoris nor congestive heart failure but she does not follow-up with cardiology on a regular basis. She had a triple bypass according to them, full detail of her intervention are not available. Her surgery was done at [facility]. The records are not available. No other history is available at this time. The patient is intubated, in sinus mechanism, has no urinary output and is requiring vasopressin and norepinephrine. She was severely acidotic on presentation. -- Patient was intubated and is admitted to ICU; intensive care and cardiology service is on board Review of Systems ROS unobtainable: due to endotracheal tube Past Medical History Past Medical History: Coronary Artery Disease (CAD), Hypertension, Sleep Apnea/CPAP/BIPAP Additional Past Medical History / Comment(s): Sciatica History of Any Multi-Drug Resistant Organisms: None Reported Past Surgical History: Coronary Bypass/CABG Additional Past Surgical History / Comment(s): Early 1999s (2002 or 2004) Past Anesthesia/Blood Transfusion Reactions: No Reported Reaction Past Psychological History: No Psychological Hx Reported Smoking Status: Former smoker - Past Family History Mother Family Medical History: No Reported History Medications and Allergies Home Medications Medication Instructions Recorded Confirmed Type Metoprolol Tartrate [Lopressor] 25 mg PO BID 07/23/13 02/14/23 History Irbesartan 300 mg PO DAILY 04/08/22 02/14/23 History Latanoprost/Pf [Latanoprost 0.005% 1 drop BOTH EYES HS 04/08/22 02/14/23 History Eye Drop] [place]-3 Fatty Acids [[place]-3] 1,000 mg PO DAILY 04/08/22 02/14/23 History Albuterol Sulfate [Albuterol 2 puff PO RT-Q4H PRN 02/14/23 02/14/23 History Sulfate Hfa] Aspirin EC [Ecotrin Low Dose] 81 mg PO DAILY 02/14/23 02/14/23 History Ergocalciferol [Vitamin D2 (1250 1,250 mcg PO QMONTHLY 02/14/23 02/14/23 History Mcg = 55733 Iu)] Spironolactone 25 mg PO DAILY 02/14/23 02/14/23 History amLODIPine [Norvasc] 10 mg PO DAILY 02/14/23 02/14/23 History Allergies Allergy/AdvReac Type Severity Reaction Status Date / Time No Known Allergies Allergy Verified 02/14/23 09:12 Physical Exam Vitals: Vital Signs Temp Pulse Resp BP Pulse Ox FiO2 02/14/23 11:30 81 28 H 95 02/14/23 11:26 80 02/14/23 11:15 80 28 H 97 02/14/23 11:12 85 02/14/23 11:00 80 28 H 99 02/14/23 10:45 80 0 L 96 02/14/23 10:30 80 0 L 96 02/14/23 10:15 77 0 L 96 02/14/23 10:00 97.5 F L 78 28 H 92 L 02/14/23 09:45 77 28 H 95 02/14/23 09:30 78 28 H 94 L 02/14/23 09:15 74 28 H 94 L 02/14/23 09:00 72 42 H 111/64 89 L 02/14/23 08:55 80 02/14/23 08:45 76 24 113/69 91 L 02/14/23 08:36 77 02/14/23 08:30 76 24 117/72 92 L 02/14/23 08:15 79 24 118/71 92 L 02/14/23 08:00 78 24 108/70 91 L 100 02/14/23 07:45 79 24 90/60 90 L 02/14/23 07:38 100 02/14/23 07:30 80 24 92/60 96 02/14/23 07:15 79 24 120/76 92 L 02/14/23 07:00 82 24 120/76 95 100 02/14/23 06:45 80 24 95/62 91 L 02/14/23 06:30 82 24 122/79 92 L 02/14/23 06:15 85 20 108/58 96 02/14/23 06:00 90 29 H 101/79 96 100 02/14/23 05:45 20 127/77 97 02/14/23 05:30 92 31 H 108/88 98 02/14/23 05:15 80 24 88/41 92 L 02/14/23 05:00 94.2 F L 84 26 H 137/79 97 100 02/14/23 04:46 100 02/14/23 04:45 86 25 H 98 02/14/23 04:00 60 02/14/23 03:30 105 H 11 L 173/115 99 02/14/23 03:20 98 14 175/123 100 02/14/23 03:10 96 14 171/109 100 02/14/23 03:00 93 18 167/120 100 02/14/23 02:50 91 7 L 169/101 100 02/14/23 02:40 91 8 L 171/121 99 02/14/23 02:38 100 02/14/23 02:30 90 8 L 147/132 98 02/14/23 02:20 92 10 L 117/100 93 L 02/14/23 02:10 86 0 L 119/74 100 02/14/23 01:12 100 02/14/23 01:06 100 Intake and Output 02/13/23 02/14/23 02/14/23 22:59 06:59 14:59 Intake Total 1233.755 559.877 Output Total 0 0 Balance 1233.755 559.877 Intake: IV 1050 330 .9 @ KVO 80 Potassium Chloride 20 meq 50 250 In Water For Injection 1 100ml.bag @ 50 mls/hr IVPB Q2H [facility] Rx#: [id number] Sodium Chloride 0.9% 1, 1000 000 ml @ 999 mls/hr IV . Q1H1M [facility] Rx#:[id number] Intake, IV Titration 183.755 229.877 Amount EPINEPHrine 4 mg In 99.619 Dextrose 5% in Water 250 ml @ 0.03 MCG/KG/MIN 10. 323 mls/hr IV .Q24H [facility] Rx#:[id number] EPINEPHrine 4 mg In 154.987 Dextrose 5% in Water 250 ml @ 0.03 MCG/KG/MIN 10. 406 mls/hr IV .Q24H [facility] Rx#:[id number] propofoL 1,000 mg In 28.768 130.258 Empty Bag 1 bag @ 15 MCG/ KG/MIN 8.259 mls/hr IV . Q12H7M [facility] Rx#:[id number] Output: Urine 0 0 Other: Voiding Method Indwelling Catheter Weight 91.762 kg 91.762 kg ABP, PAP, CO, CI - Last 8 Hours Arterial Blood Pressure 118/60 Arterial Blood Pressure 113/59 Arterial Blood Pressure 110/58 Arterial Blood Pressure 110/56 Arterial Blood Pressure 104/57 Arterial Blood Pressure 105/57 Arterial Blood Pressure 111/59 Arterial Blood Pressure 116/61 Arterial Blood Pressure 118/63 Arterial Blood Pressure 100/60 7-year-old female, intubated with large hematoma on the left side of the face ,Blood pressure 120/70, Heart rate 80 Head: Hematoma above the left eye and on the left cheek Eyes: Significant edema on the left side Neck: Good carotid upstroke, no bruit, no jugular venous distention. Lungs: Clear to auscultation anteriorly. Heart: Regular rate and rhythm, S1-S2, no S3, no rub. Systolic ejection murmur. Abdomen: Soft, positive bowel sounds no organomegaly. Extremities: Trace to 1+ edema, intact distal pulses. Results CBC & Chem 7: 02/14/23 04:46 02/14/23 13:05 Labs: Abnormal Lab Results - Last 24 Hours (Table) 02/14/23 02/14/23 02/14/23 Range/Units 00:49 00:49 00:49 WBC 11.9 H (3.8-10.6) k/uL MCV 100.5 H (80.0-100.0) fL MCHC 30.9 L (31.0-37.0) g/dL Plt Count 132 L (150-450) k/uL Neutrophils # (1.3-7.7) k/uL Lymphocytes # 5.4 H (1.0-4.8) k/uL PT 13.3 H (10.0-12.5) sec INR 1.3 H (<1.2) APTT 40.4 H (22.0-30.0) sec ABG pH (7.35-7.45) ABG pCO2 (35-45) mmHg ABG pO2 (83-108) mmHg ABG HCO3 (21-25) mmol/L ABG O2 Saturation (94-97) % Potassium 3.2 L (3.5-5.1) mmol/L Chloride 109 H (98-107) mmol/L Carbon Dioxide 13 L (22-30) mmol/L BUN 18 H (7-17) mg/dL Creatinine 1.42 H (0.52-1.04) mg/dL Glucose 308 H (74-99) mg/dL POC Glucose (mg/dL) (70-110) mg/dL Plasma Lactic Acid Klever (0.7-2.0) mmol/L Calcium (8.4-10.2) mg/dL Phosphorus 7.6 H (2.5-4.5) mg/dL AST 139 H (14-36) U/L ALT 115 H (4-34) U/L Troponin I (0.000-0.034) ng/mL 02/14/23 02/14/23 02/14/23 Range/Units 00:49 00:49 02:25 WBC (3.8-10.6) k/uL MCV (80.0-100.0) fL MCHC (31.0-37.0) g/dL Plt Count (150-450) k/uL Neutrophils # (1.3-7.7) k/uL Lymphocytes # (1.0-4.8) k/uL PT (10.0-12.5) sec INR (<1.2) APTT (22.0-30.0) sec ABG pH 7.07 L* (7.35-7.45) ABG pCO2 67 H (35-45) mmHg ABG pO2 114 H (83-108) mmHg ABG HCO3 19 L (21-25) mmol/L ABG O2 Saturation (94-97) % Potassium (3.5-5.1) mmol/L Chloride (98-107) mmol/L Carbon Dioxide (22-30) mmol/L BUN (7-17) mg/dL Creatinine (0.52-1.04) mg/dL Glucose (74-99) mg/dL POC Glucose (mg/dL) (70-110) mg/dL Plasma Lactic Acid Klever 10.4 H* (0.7-2.0) mmol/L Calcium (8.4-10.2) mg/dL Phosphorus (2.5-4.5) mg/dL AST (14-36) U/L ALT (4-34) U/L Troponin I 0.127 H* (0.000-0.034) ng/mL 02/14/23 02/14/23 02/14/23 Range/Units 04:33 04:46 04:46 WBC 22.2 H (3.8-10.6) k/uL MCV (80.0-100.0) fL MCHC (31.0-37.0) g/dL Plt Count (150-450) k/uL Neutrophils # 18.1 H (1.3-7.7) k/uL Lymphocytes # (1.0-4.8) k/uL PT (10.0-12.5) sec INR (<1.2) APTT (22.0-30.0) sec ABG pH (7.35-7.45) ABG pCO2 (35-45) mmHg ABG pO2 (83-108) mmHg ABG HCO3 (21-25) mmol/L ABG O2 Saturation (94-97) % Potassium (3.5-5.1) mmol/L Chloride (98-107) mmol/L Carbon Dioxide (22-30) mmol/L BUN (7-17) mg/dL Creatinine (0.52-1.04) mg/dL Glucose (74-99) mg/dL POC Glucose (mg/dL) 219 H (70-110) mg/dL Plasma Lactic Acid Klever 10.1 H* (0.7-2.0) mmol/L Calcium (8.4-10.2) mg/dL Phosphorus (2.5-4.5) mg/dL AST (14-36) U/L ALT (4-34) U/L Troponin I (0.000-0.034) ng/mL 02/14/23 02/14/23 02/14/23 Range/Units 04:46 06:32 07:49 WBC (3.8-10.6) k/uL MCV (80.0-100.0) fL MCHC (31.0-37.0) g/dL Plt Count (150-450) k/uL Neutrophils # (1.3-7.7) k/uL Lymphocytes # (1.0-4.8) k/uL PT (10.0-12.5) sec INR (<1.2) APTT (22.0-30.0) sec ABG pH 7.22 L (7.35-7.45) ABG pCO2 46 H (35-45) mmHg ABG pO2 78 L (83-108) mmHg ABG HCO3 19 L (21-25) mmol/L ABG O2 Saturation 93.1 L (94-97) % Potassium 2.8 L (3.5-5.1) mmol/L Chloride 108 H (98-107) mmol/L Carbon Dioxide 18 L (22-30) mmol/L BUN 25 H (7-17) mg/dL Creatinine 1.70 H (0.52-1.04) mg/dL Glucose 282 H (74-99) mg/dL POC Glucose (mg/dL) (70-110) mg/dL Plasma Lactic Acid Klever 9.6 H* (0.7-2.0) mmol/L Calcium 7.8 L (8.4-10.2) mg/dL Phosphorus (2.5-4.5) mg/dL AST (14-36) U/L ALT (4-34) U/L Troponin I (0.000-0.034) ng/mL 02/14/23 02/14/23 02/14/23 Range/Units 07:49 09:12 09:25 WBC (3.8-10.6) k/uL MCV (80.0-100.0) fL MCHC (31.0-37.0) g/dL Plt Count (150-450) k/uL Neutrophils # (1.3-7.7) k/uL Lymphocytes # (1.0-4.8) k/uL PT (10.0-12.5) sec INR (<1.2) APTT (22.0-30.0) sec ABG pH 7.29 L (7.35-7.45) ABG pCO2 (35-45) mmHg ABG pO2 75 L (83-108) mmHg ABG HCO3 (21-25) mmol/L ABG O2 Saturation (94-97) % Potassium (3.5-5.1) mmol/L Chloride (98-107) mmol/L Carbon Dioxide (22-30) mmol/L BUN (7-17) mg/dL Creatinine (0.52-1.04) mg/dL Glucose (74-99) mg/dL POC Glucose (mg/dL) 309 H (70-110) mg/dL Plasma Lactic Acid Klever (0.7-2.0) mmol/L Calcium (8.4-10.2) mg/dL Phosphorus (2.5-4.5) mg/dL AST (14-36) U/L ALT (4-34) U/L Troponin I 11.600 H* (0.000-0.034) ng/mL 02/14/23 02/14/23 02/14/23 Range/Units 10:33 10:35 10:38 WBC (3.8-10.6) k/uL MCV (80.0-100.0) fL MCHC (31.0-37.0) g/dL Plt Count (150-450) k/uL Neutrophils # (1.3-7.7) k/uL Lymphocytes # (1.0-4.8) k/uL PT (10.0-12.5) sec INR (<1.2) APTT (22.0-30.0) sec ABG pH (7.35-7.45) ABG pCO2 (35-45) mmHg ABG pO2 (83-108) mmHg ABG HCO3 (21-25) mmol/L ABG O2 Saturation (94-97) % Potassium (3.5-5.1) mmol/L Chloride (98-107) mmol/L Carbon Dioxide (22-30) mmol/L BUN (7-17) mg/dL Creatinine (0.52-1.04) mg/dL Glucose (74-99) mg/dL POC Glucose (mg/dL) 320 H (70-110) mg/dL Plasma Lactic Acid Klever 8.6 H* (0.7-2.0) mmol/L Calcium (8.4-10.2) mg/dL Phosphorus (2.5-4.5) mg/dL AST (14-36) U/L ALT (4-34) U/L Troponin I 13.000 H* (0.000-0.034) ng/mL Assessment and Plan Assessment: 1. Cardiac arrest; patient had prolonged CPR and presented with severe acid osis; intubated and mechanically ventilated at this time -[employer] service on board; recommending to continue with ventilator support 2. Acute ST elevation [place]; EKG changes consistent with inferolateral EKG changes; patient has history of coronary artery disease and is s/p CABG 20 years ago - Cardiology on board; given prolonged CPR, patient is deemed not a candidate for acute coronary angiography; echocardiogram is ordered and pending -- Cardiology recommending supportive care; patient has been placed on heparin cautiously, given left facial hematoma 3. Acute renal failure with anuria; likely ATN secondary to prolonged CPR and hypotension 4. Facial hematoma; no acute fracture; supportive care DVT prophylaxis; SCDs/IV heparin CODE STATUS; full code
[2023-02-14 16:11] LABS: Glucose,Whole Blood 300 mg/dL (70-110)
[2023-02-14 16:57] LABS: Glucose,Whole Blood 282 mg/dL (70-110)
[2023-02-14 18:07] LABS: Glucose,Whole Blood 257 mg/dL (70-110)
[2023-02-14 18:51] LABS: Glucose,Whole Blood 217 mg/dL (70-110)
[2023-02-14 20:00] LABS: Glucose,Whole Blood 200 mg/dL (70-110)
[2023-02-14 20:26] LABS: ABG Base Excess -5.4 mmol/L; ABG HCO3 22 mmol/L (21-25); ABG PCO2 47 mmHg (35-45); ABG PH 7.27 (7.35-7.45); ABG PO2 98 mmHg (83-108); ABG TCO2 23 mmol/L (19-24); Allen Test Performed? Yes
--- NOTE | 2023-02-14 20:39 | XR ---
EXAMINATION TYPE: XR chest 1V portable DATE OF EXAM: 02/14/2023 8:21 PM CLINICAL INDICATION:Female, 77 years old with history of Respiratory distress; [facility] COMPARISON: Same day, 07/15/2014. TECHNIQUE: XR chest 1V portable Frontal view of the chest. FINDINGS: Lungs/Pleura: Increasing left upper lung airspace opacities. Persistent left lower lung airspace opac ities. Right lower lung nodule seen dating back to at least 2014. There is no evidence of pleural eff usion, focal consolidation, or pneumothorax. Pulmonary vascularity: Unremarkable. Heart/mediastinum: Cardiomediastinal silhouette is enlarged and stable. Musculoskeletal: No acute osseous pathology. Other findings: None Lines/Tubes: Endotracheal tube with distal tip 4.4 cm above the mary. Nasogastric tube with its distal tip and side-port projecting under the diaphragm. IMPRESSION: 1. Support tubes in appropriate position. 2. Increased consolidation changes in the left upper lung correlate for pneumonia, versus mucous plu gging and atelectasis.
[2023-02-14 21:00] LABS: Glucose,Whole Blood 215 mg/dL (70-110)
[2023-02-14 21:56] LABS: Glucose,Whole Blood 138 mg/dL (70-110)
[2023-02-14] MEDS: ARTIFICIAL TEARS-HYPROMELLOSE DROPS 15 ML BTL BOTH EYES SCH (22:00)
[2023-02-14 23:00] LABS: Glucose,Whole Blood 105 mg/dL (70-110)
[2023-02-14 23:58] LABS: Glucose,Whole Blood 94 mg/dL (70-110)
[2023-02-15] MEDS: ARTIFICIAL TEARS-HYPROMELLOSE DROPS 15 ML BTL BOTH EYES SCH ×6 (00:28→20:31)
[2023-02-15 01:04] LABS: Glucose,Whole Blood 96 mg/dL (70-110)
[2023-02-15] MEDS: IPRATROPIUM-ALBUTEROL 3 ML NEB INHALATION SCH ×6 (01:32→20:37)
[2023-02-15 01:56] LABS: Glucose,Whole Blood 75 mg/dL (70-110)
[2023-02-15 02:35] LABS: Glucose,Whole Blood 81 mg/dL (70-110)
[2023-02-15 03:04] LABS: Glucose,Whole Blood 90 mg/dL (70-110)
[2023-02-15 03:47] LABS: Glucose,Whole Blood 138 mg/dL (70-110)
[2023-02-15 04:05] LABS: Basophils % (A) 0 %; Eosinophils % (A) 0 %; Lymphocytes # (A) 1.6 k/uL (1.0-4.8); Lymphocytes % (A) 6 %; MCH 30.7 pg (25.0-35.0); MCHC 32.8 g/dL (31.0-37.0); MCV 93.5 fL (80.0-100.0); Mean Platelet Volume 9.9; Monocytes # (A) 0.8 k/uL (0-1.0); Monocytes % (A) 3 %; Neutrophils # (A) 25.1 k/uL (1.3-7.7); Neutrophils % (A) 91 %; Platelet Count 115 k/uL (150-450); RDW 15.2 % (11.5-15.5); WBC 27.7 k/uL (3.8-10.6)
[2023-02-15 04:08] LABS: HGB 9.8 gm/dL (11.4-16.0)
[2023-02-15 04:29] LABS: ALT 251 U/L (4-34); AST 289 U/L (14-36); African American GFR (CKD) 16 (>60 ml/min/1.73 sqM); Albumin 2.5 g/dL (3.5-5.0); Alkaline Phosphatase 123 U/L (38-126); Anion Gap 12 mmol/L; Blood Urea Nitrogen 38 mg/dL (7-17); Calcium 7.1 mg/dL (8.4-10.2); Carbon Dioxide 22 mmol/L (22-30); Chloride 108 mmol/L (98-107); Glucose 130 mg/dL (74-99); Magnesium 1.5 mg/dL (1.6-2.3); Non-African American GFR(CKD) 14 (>60 ml/min/1.73 sqM); Phosphorus 6.1 mg/dL (2.5-4.5); Potassium 3.8 mmol/L (3.5-5.1); Sodium 142 mmol/L (137-145); Total Bilirubin 0.8 mg/dL (0.2-1.3)
[2023-02-15] MEDS: EPINEPHrine 4 MG in DEXTROSE 5% IN WATER 250 ML IV SCH ×4 (04:35→07:46)
[2023-02-15 05:02] LABS: Glucose,Whole Blood 120 mg/dL (70-110)
[2023-02-15 06:03] LABS: ABG Base Excess -3.8 mmol/L; ABG HCO3 22 mmol/L (21-25); ABG Oxygen Saturation 96.9 % (94-97); ABG PCO2 43 mmHg (35-45); ABG PH 7.32 (7.35-7.45); ABG PO2 88 mmHg (83-108); ABG TCO2 24 mmol/L (19-24); Allen Test Performed? Yes
[2023-02-15 06:03] LABS: Glucose,Whole Blood 116 mg/dL (70-110)
[2023-02-15 06:54] LABS: Glucose,Whole Blood 119 mg/dL (70-110)
[2023-02-15] MEDS: VASOPRESSIN 60 UNIT in SODIUM CHLORIDE 0.9% 150 ML IV SCH (07:48)
[2023-02-15] MEDS: PANTOPRAZOLE 40 MG/10 ML VIAL IVP SCH (07:50)
[2023-02-15] MEDS: CHLORHEXIDINE GLUCONATE 15 ML CUP MUCOUS MEM SCH ×2 (07:51→20:30)
--- NOTE | 2023-02-15 09:16 | XR ---
EXAMINATION TYPE: XR chest 1V portable DATE OF EXAM: 02/15/2023 Comparison: 02/14/2023 Clinical History: 77-year-old female Tube placement Findings: ET and NG tubes are satisfactory. Median sternotomy wires and post-CABG clips. Leftward patient rotat ion ultrasound normal cardiac and mediastinal contours. Heart borderline in size. Underlying patchy o pacities throughout the left lung. Impression: Ongoing patchy airspace disease throughout the left lung.
[2023-02-15] MEDS ORDERED: FUROSEMIDE 10 MG/ML 10 ML VIAL IV STA (09:31)
[2023-02-15] MEDS: PIPERACILLIN-TAZOBACTAM 3.375 GM in SODIUM CHLORIDE 0.9% 100 ML IVPB SCH ×2 (09:59→23:06)
[2023-02-15] MEDS: DEXAMETHASONE SOD PHOSPHATE 10 MG/ML 1 ML VIAL IVP SCH ×2 (10:21→20:30)
[2023-02-15 10:29] LABS: Glucose,Whole Blood 186 mg/dL (70-110)
[2023-02-15] MEDS: NOREPINEPHRINE 32 MG in SODIUM CHLORIDE 0.9% 218 ML IV SCH (10:43)
[2023-02-15 11:32] LABS: Glucose,Whole Blood 165 mg/dL (70-110)
--- NOTE | 2023-02-15 12:29 | P.NPCON ---
History of Present Illness - Reason for Consult acute renal failure - History of Present Illness Reason for consultation: Acute kidney injury History of present illness: Patient is a 77-year-old female seen in renal consultation for acute kidney injury. Creatinine was 1.4-1 admission and is up to 3.04 today. Creatinine 1.18 dated 02/13/2022. Patient came to the hospital after cardiac arrest. Patient was found on the floor and it was a witnessed collapse. Patient is noted to have a hematoma over the left eye. CPR was performed for about 30 minutes and she was cardioverted twice. Patient received multiple rounds of epinephrine during the code. She was subsequently intubated and brought to the hospital. She is currently in the ICU. She is on Levophed and vasopressin. Epinephrine has been discontinued. 2 P0 started today. She is on 55% FiO2. Patient has history of coronary disease status post CABG several years ago. She was on spironolactone as well as irbesartan outpatient which are currently held. Patient is oliguric. Vital signs are stable. On vasopressor support. General: Resting in bed. HEENT: Intubated. LUNGS: Scattered rhonchi. HEART: Rate and Rhythm are regular. ABDOMEN: No distention. EXTREMITITES: No edema. Past Medical History Past Medical History: Coronary Artery Disease (CAD), Hypertension, Sleep Apnea/CPAP/BIPAP Additional Past Medical History / Comment(s): Sciatica History of Any Multi-Drug Resistant Organisms: None Reported Past Surgical History: Coronary Bypass/CABG Additional Past Surgical History / Comment(s): Early 1999s (2002 or 2004) Past Anesthesia/Blood Transfusion Reactions: No Reported Reaction Past Psychological History: No Psychological Hx Reported Smoking Status: Former smoker - Past Family History Mother Family Medical History: No Reported History Medications and Allergies Home Medications Medication Instructions Recorded Confirmed Type Metoprolol Tartrate [Lopressor] 25 mg PO BID 07/23/13 02/14/23 History Irbesartan 300 mg PO DAILY 04/08/22 02/14/23 History Latanoprost/Pf [Latanoprost 0.005% 1 drop BOTH EYES HS 04/08/22 02/14/23 History Eye Drop] [place]-3 Fatty Acids [[place]-3] 1,000 mg PO DAILY 04/08/22 02/14/23 History Albuterol Sulfate [Albuterol 2 puff PO RT-Q4H PRN 02/14/23 02/14/23 History Sulfate Hfa] Aspirin EC [Ecotrin Low Dose] 81 mg PO DAILY 02/14/23 02/14/23 History Ergocalciferol [Vitamin D2 (1250 1,250 mcg PO QMONTHLY 02/14/23 02/14/23 History Mcg = [id number] Iu)] Spironolactone 25 mg PO DAILY 02/14/23 02/14/23 History amLODIPine [Norvasc] 10 mg PO DAILY 02/14/23 02/14/23 History Allergies Allergy/AdvReac Type Severity Reaction Status Date / Time No Known Allergies Allergy Verified 02/14/23 09:12 Physical Exam Vitals: Vital Signs Temp Pulse Resp BP Pulse Ox FiO2 02/15/23 11:27 114 H 02/15/23 11:17 111 H 02/15/23 11:13 60 02/15/23 11:00 114 H 30 H 127/70 100 02/15/23 10:45 104 H 28 H 127/70 96 02/15/23 10:30 110 H 30 H 127/70 95 02/15/23 10:15 107 H 29 H 127/70 96 02/15/23 10:00 105 H 28 H 127/70 94 L 02/15/23 09:45 105 H 28 H 127/70 94 L 02/15/23 09:30 104 H 29 H 127/70 94 L 02/15/23 09:29 60 02/15/23 09:15 101 H 28 H 127/70 95 02/15/23 09:00 102 H 29 H 127/70 95 02/15/23 08:45 101 H 28 H 127/70 95 02/15/23 08:30 101 H 28 H 127/70 94 L 02/15/23 08:15 101 H 28 H 127/70 95 02/15/23 08:09 100 02/15/23 08:07 80 02/15/23 08:00 99.2 F 101 H 29 H 127/70 94 L 80 02/15/23 07:45 98 28 H 95 02/15/23 07:30 100 28 H 94 L 02/15/23 07:15 100 29 H 94 L 02/15/23 07:00 99 28 H 94 L 02/15/23 06:45 99 28 H 94 L 02/15/23 06:30 100 28 H 94 L 02/15/23 06:15 100 28 H 93 L 02/15/23 06:00 99 28 H 93 L 02/15/23 05:45 99 28 H 94 L 02/15/23 05:30 100 28 H 93 L 02/15/23 05:15 100 25 H 92 L 02/15/23 05:00 99 28 H 97 02/15/23 04:45 101 H 28 H 95 02/15/23 04:30 99 28 H 94 L 02/15/23 04:20 96 02/15/23 04:15 98 28 H 95 02/15/23 04:06 98 02/15/23 04:00 100.5 F H 98 28 H 94 L 90 02/15/23 03:45 98 28 H 94 L 02/15/23 03:34 80 02/15/23 03:30 98 28 H 93 L 02/15/23 03:15 97 28 H 93 L 02/15/23 03:00 97 28 H 94 L 02/15/23 02:45 96 28 H 93 L 02/15/23 02:30 97 28 H 93 L 02/15/23 02:15 97 28 H 93 L 02/15/23 02:00 96 28 H 92 L 80 02/15/23 01:45 96 28 H 97 02/15/23 01:33 80 02/15/23 01:30 97 28 H 95 02/15/23 01:15 96 28 H 97 02/15/23 01:00 96 28 H 98 02/15/23 00:45 96 28 H 97 02/15/23 00:30 96 28 H 98 02/15/23 00:15 96 28 H 97 02/15/23 00:00 99.8 F H 95 28 H 97 90 02/14/23 23:45 95 28 H 99 02/14/23 23:30 95 28 H 98 02/14/23 23:15 95 28 H 99 02/14/23 23:01 95 28 H 98 02/14/23 23:00 95 28 H 97 02/14/23 22:45 95 28 H 98 02/14/23 22:30 95 28 H 97 02/14/23 22:15 96 28 H 98 02/14/23 22:00 94 28 H 97 02/14/23 21:45 94 28 H 98 02/14/23 21:30 93 28 H 97 02/14/23 21:15 93 28 H 95 90 02/14/23 21:00 94 28 H 111/71 95 02/14/23 20:53 96 02/14/23 20:45 96 0 L 111/71 99 02/14/23 20:30 95 28 H 122/70 97 100 02/14/23 20:28 90 02/14/23 20:15 96 28 H 128/73 81 L 02/14/23 20:12 100 02/14/23 20:09 60 02/14/23 20:00 99.4 F 100 28 H 138/81 77 L 100 02/14/23 19:45 103 H 28 H 124/79 90 L 02/14/23 19:30 100 28 H 109/64 91 L 02/14/23 19:15 101 H 28 H 90 L 02/14/23 19:00 103 H 28 H 109/64 90 L 02/14/23 18:45 105 H 28 H 109/64 90 L 02/14/23 18:30 101 H 28 H 94 L 02/14/23 18:15 101 H 28 H 97 02/14/23 18:00 101 H 28 H 100 02/14/23 17:45 101 H 28 H 100 02/14/23 17:30 103 H 28 H 93 L 02/14/23 17:15 104 H 28 H 92 L 02/14/23 17:00 103 H 28 H 99 02/14/23 16:45 103 H 28 H 98 02/14/23 16:30 102 H 28 H 98 02/14/23 16:15 104 H 28 H 99 02/14/23 16:00 98.7 F 104 H 28 H 97 60 02/14/23 15:45 102 H 28 H 99 02/14/23 15:30 101 H 0 L 98 02/14/23 15:26 100 02/14/23 15:16 98 60 02/14/23 15:15 99 0 L 100 02/14/23 15:00 96 0 L 100 02/14/23 14:45 92 0 L 100 02/14/23 14:30 89 20 100 02/14/23 14:15 90 20 100 01/05/24 14:00 87 20 100 02/14/23 13:45 87 20 100 02/14/23 13:30 87 20 99 02/14/23 13:15 87 20 99 02/14/23 13:00 87 28 H 99 02/14/23 12:45 87 28 H 100 02/14/23 12:30 86 28 H 100 Intake and Output 02/14/23 02/15/23 02/15/23 22:59 06:59 14:59 Intake Total 942.057 794.020 690.069 Output Total 0 58 0 Balance 942.057 736.020 690.069 Intake: IV 160 140 180 .9 @ KVO 160 140 80 Piperacillin-Tazobactam 3 100 .375 gm In Sodium Chloride 0.9% 100 ml @ 25 mls/hr IVPB Q12HR [facility] Rx #:[id number] Intake, IV Titration 782.057 654.020 510.069 Amount Cisatracurium 200 mg In 17.986 135.448 Sodium Chloride 0.9% 180 ml @ 1 MCG/KG/MIN 5.506 mls/hr IV .Q24H [facility] Rx#: [id number] EPINEPHrine 4 mg In 493.284 250 261.636 Dextrose 5% in Water 250 ml @ 0.03 MCG/KG/MIN 10. 323 mls/hr IV .Q24H [facility] Rx#:[id number] Insulin Regular 100 unit 112.037 In Sodium Chloride 0.9% 100 ml @ Titrate IV .Q0M [facility] Rx#:[id number] Vasopressin 60 unit In 138.388 Sodium Chloride 0.9% 150 ml @ 0.04 UNITS/MIN 6.12 mls/hr IV .Q24H [facility] Rx#: [id number] propofoL 1,000 mg In 158.750 265.632 112.985 Empty Bag 1 bag @ 15 MCG/ KG/MIN 8.259 mls/hr IV . Q12H7M [facility] Rx#:[id number] Output: Gastric Drainage 50 Urine 0 8 0 Other: Voiding Method Indwelling Catheter Indwelling Catheter Weight 94.5 kg 94.5 kg ABP, PAP, CO, CI - Last 8 Hours Arterial Blood Pressure 195/84 Arterial Blood Pressure 107/51 Arterial Blood Pressure 111/53 Arterial Blood Pressure 161/69 Arterial Blood Pressure 145/63 Arterial Blood Pressure 136/60 Arterial Blood Pressure 113/54 Arterial Blood Pressure 120/54 Arterial Blood Pressure 109/50 Arterial Blood Pressure 120/49 Arterial Blood Pressure 126/55 Arterial Blood Pressure 103/48 Arterial Blood Pressure 110/50 Arterial Blood Pressure 109/48 Arterial Blood Pressure 114/53 Arterial Blood Pressure 117/52 Arterial Blood Pressure 95/44 Arterial Blood Pressure 110/51 Arterial Blood Pressure 110/50 Arterial Blood Pressure 120/56 Arterial Blood Pressure 111/55 Arterial Blood Pressure 118/51 Arterial Blood Pressure 129/55 Arterial Blood Pressure 117/53 Arterial Blood Pressure 131/55 Arterial Blood Pressure 98/46 Arterial Blood Pressure 108/51 Results - Lab Results Most recent lab results ABG pH 7.32 (7.35-7.45) L 02/15/23 06:00 ABG pCO2 43 mmHg (35-45) 02/15/23 06:00 ABG pO2 88 mmHg (83-108) 02/15/23 06:00 ABG HCO3 22 mmol/L (21-25) 02/15/23 06:00 ABG O2 Saturation 96.9 % (94-97) 02/15/23 06:00 Calcium 7.1 mg/dL (8.4-10.2) L 02/15/23 03:45 Phosphorus 6.1 mg/dL (2.5-4.5) H 02/15/23 03:45 Magnesium 1.5 mg/dL (1.6-2.3) L 02/15/23 03:45 02/15/23 03:45 02/15/23 03:45 Assessment and Plan Plan: Assessment: 1. Acute kidney injury secondary to ATN secondary to cardiac arrest. Creatinine 1.42 admission and up to 3.04 today. Oliguric. 2. Metabolic acidosis secondary to acute kidney injury and lactic acidosis. Improved. 3. Status post cardiac arrest. 4. Acute ST elevated myocardial infarction. Etiology following. Status post heparin drip. 5. History of coronary disease status post CABG. 6. Facial hematoma secondary to fall. 7. Hyperphosphatemia secondary to acute kidney injury. 8. Hypomagnesemia from poor intake. 9. Concern for anoxic brain injury. Neuro assessment pending. Plan: Gentle IV hydration. Tube feeds started today. Check renal ultrasound. Wean FiO2 and vasopressors. 1 g IV magnesium sulfate today. Discussed with family in detail the need for renal replacement therapy due to worsening renal function and oliguria. They understand and are willing to proceed. Consults vascular surgery for dialysis catheter placement. Plan for first treatment of hemodialysis today. Thank you for the consultation. I will continue to follow the patient with you during her hospital stay.
[2023-02-15] MEDS ORDERED: MAGNESIUM SULFATE-D5W PMX 1 GM in DEXTROSE/WATER 1 100ML.BAG IVPB ONE (12:30)
--- NOTE | 2023-02-15 12:54 | P.PN ---
Subjective Progress Note Date: 02/15/23 This is Juanjo Sr NP, I'm dictating on behalf of Dr. Ritchie's H&P and A&P. Patient was interviewed and examined. Patient is a 69-year-old female who was brought to the hospital via EMS after being found in cardiopulmonary arrest for an undetermined amount of time. Patient had multiple shocks administered, as well as CPR for approximately 45 minutes before ROSC was achieved. Patient currently remains in the ICU, sedated and intubated. She is on pressors to support her blood pressure, which cur rently is stable. Patient is tachycardic today. She does have good heart sounds, lungs are clear. Echocardiogram shows normal LV size and function, with right ventricular enlargement and moderate pulmonary hypertension. GENERAL: Intubated and sedated. NECK: Supple without JVD or thyromegaly. LUNGS: Breath sounds clear to auscultation bilaterally. Respiration equal and unlabored. No wheezes, rales or rhonchi. HEART: Tachycardic rate and normal rhythm without murmurs, rubs or gallops. S1 and S2 heard. EXTREMITIES: No edema. No clubbing or cyanosis. Peripheral pulses intact and strong. VITALS: Temp 99.2, pulse 114, respirations 30, blood pressure 127/70, O2 saturation 100% on mechanical ventilation TELEMETRY: Sinus tachycardia LABS: White count 27.7, hemoglobin 9.8, platelets 1:15, arterial blood gas lactic acid 2.3, sodium 142, potassium 3.8, B1 38, creatinine 3.04, calcium 7.1, phosphorus 6.1, magnesium 1.5 IMPRESSION: 1. Cardiac arrest with prolonged CPR and severe acidosis 2. Acute ST elevated myocardial infarction, inferolateral 3. History of coronary artery disease with prior CABG 4. Acute renal failure 5. Status post mechanical fall, facial hematoma PLAN: Continue current medical management. Poor prognosis. Further recommendations based on patient's clinical course. Objective - Vital Signs Vital signs: Vital Signs Temp 99.2 F 02/15/23 08:00 Pulse 114 H 02/15/23 11:27 Resp 30 H 02/15/23 11:00 BP 127/70 02/15/23 11:00 Pulse Ox 100 02/15/23 11:00 FiO2 60 02/15/23 11:13 Intake & Output 0102/15/23 02/15/23 18:59 06:59 18:59 Intake Total 0306.180 4683.036 690.069 Output Total 0 58 0 Balance 7342.758 2287.036 690.069 Weight 91.762 kg 94.5 kg 94.5 kg Intake: IV 470 220 180 .9 @ KVO 220 220 80 Piperacillin-Tazobactam 3 100 .375 gm In Sodium Chloride 0.9% 100 ml @ 25 mls/hr IVPB Q12HR [facility] Rx #:[id number] Potassium Chloride 20 meq 250 In Water For Injection 1 100ml.bag @ 50 mls/hr IVPB Q2H [facility] Rx#: [id number] Intake, IV Titration 931.877 5585.036 510.069 Amount Cisatracurium 200 mg In 17.986 135.448 Sodium Chloride 0.9% 180 ml @ 1 MCG/KG/MIN 5.506 mls/hr IV .Q24H [facility] Rx#: [id number] EPINEPHrine 4 mg In 451.589 493.284 261.636 Dextrose 5% in Water 250 ml @ 0.03 MCG/KG/MIN 10. 323 mls/hr IV .Q24H [facility] Rx#:[id number] Insulin Regular 100 unit 77.717 56.310 In Sodium Chloride 0.9% 100 ml @ Titrate IV .Q0M [facility] Rx#:[id number] Vasopressin 60 unit In 138.388 Sodium Chloride 0.9% 150 ml @ 0.04 UNITS/MIN 6.12 mls/hr IV .Q24H [facility] Rx#: [id number] propofoL 1,000 mg In 297.634 350.054 112.985 Empty Bag 1 bag @ 15 MCG/ KG/MIN 8.259 mls/hr IV . Q12H7M [facility] Rx#:[id number] Output: Gastric Drainage 50 Urine 0 8 0 Other: Voiding Method Indwelling Catheter Indwelling Catheter ABP, PAP, CO, CI - Last Documented Arterial Blood Pressure 195/84 - Labs CBC & Chem 7: 02/15/23 03:45 02/15/23 03:45 Labs: Abnormal Lab Results - Last 24 Hours (Table) 02/14/23 02/14/23 02/14/23 Range/Units 13:04 13:05 14:40 WBC (3.8-10.6) k/uL RBC (3.80-5.40) m/uL Hgb (11.4-16.0) gm/dL Hct (34.0-46.0) % Plt Count (150-450) k/uL Neutrophils # (1.3-7.7) k/uL ABG pH (7.35-7.45) ABG pCO2 (35-45) mmHg ABG Lactic Acid (0.5-1.6) mmol/L Potassium 3.4 L (3.5-5.1) mmol/L Chloride 112 H (98-107) mmol/L Carbon Dioxide 14 L (22-30) mmol/L BUN 30 H (7-17) mg/dL Creatinine 2.19 H (0.52-1.04) mg/dL Glucose 308 H (74-99) mg/dL POC Glucose (mg/dL) 309 H 308 H (70-110) mg/dL Calcium 7.1 L (8.4-10.2) mg/dL Phosphorus (2.5-4.5) mg/dL Magnesium (1.6-2.3) mg/dL AST (14-36) U/L ALT (4-34) U/L Total Protein (6.3-8.2) g/dL Albumin (3.5-5.0) g/dL 02/14/23 02/14/23 02/14/23 Range/Units 16:09 16:56 18:05 WBC (3.8-10.6) k/uL RBC (3.80-5.40) m/uL Hgb (11.4-16.0) gm/dL Hct (34.0-46.0) % Plt Count (150-450) k/uL Neutrophils # (1.3-7.7) k/uL ABG pH (7.35-7.45) ABG pCO2 (35-45) mmHg ABG Lactic Acid (0.5-1.6) mmol/L Potassium (3.5-5.1) mmol/L Chloride (98-107) mmol/L Carbon Dioxide (22-30) mmol/L BUN (7-17) mg/dL Creatinine (0.52-1.04) mg/dL Glucose (74-99) mg/dL POC Glucose (mg/dL) 300 H 282 H 257 H (70-110) mg/dL Calcium (8.4-10.2) mg/dL Phosphorus (2.5-4.5) mg/dL Magnesium (1.6-2.3) mg/dL AST (14-36) U/L ALT (4-34) U/L Total Protein (6.3-8.2) g/dL Albumin (3.5-5.0) g/dL 02/14/23 02/14/23 02/14/23 Range/Units 18:49 19:58 20:23 WBC (3.8-10.6) k/uL RBC (3.80-5.40) m/uL Hgb (11.4-16.0) gm/dL Hct (34.0-46.0) % Plt Count (150-450) k/uL Neutrophils # (1.3-7.7) k/uL ABG pH 7.27 L (7.35-7.45) ABG pCO2 47 H (35-45) mmHg ABG Lactic Acid (0.5-1.6) mmol/L Potassium (3.5-5.1) mmol/L Chloride (98-107) mmol/L Carbon Dioxide (22-30) mmol/L BUN (7-17) mg/dL Creatinine (0.52-1.04) mg/dL Glucose (74-99) mg/dL POC Glucose (mg/dL) 217 H 200 H (70-110) mg/dL Calcium (8.4-10.2) mg/dL Phosphorus (2.5-4.5) mg/dL Magnesium (1.6-2.3) mg/dL AST (14-36) U/L ALT (4-34) U/L Total Protein (6.3-8.2) g/dL Albumin (3.5-5.0) g/dL 02/14/23 02/14/23 02/15/23 Range/Units 20:58 21:55 03:45 WBC 27.7 H (3.8-10.6) k/uL RBC 3.20 L (3.80-5.40) m/uL Hgb 9.8 L D (11.4-16.0) gm/dL Hct 30.0 L (34.0-46.0) % Plt Count 115 L (150-450) k/uL Neutrophils # 25.1 H (1.3-7.7) k/uL ABG pH (7.35-7.45) ABG pCO2 (35-45) mmHg ABG Lactic Acid (0.5-1.6) mmol/L Potassium (3.5-5.1) mmol/L Chloride (98-107) mmol/L Carbon Dioxide (22-30) mmol/L BUN (7-17) mg/dL Creatinine (0.52-1.04) mg/dL Glucose (74-99) mg/dL POC Glucose (mg/dL) 215 H 138 H (70-110) mg/dL Calcium (8.4-10.2) mg/dL Phosphorus (2.5-4.5) mg/dL Magnesium (1.6-2.3) mg/dL AST (14-36) U/L ALT (4-34) U/L Total Protein (6.3-8.2) g/dL Albumin (3.5-5.0) g/dL 02/15/23 02/15/23 02/15/23 Range/Units 03:45 03:46 04:10 WBC (3.8-10.6) k/uL RBC (3.80-5.40) m/uL Hgb (11.4-16.0) gm/dL Hct (34.0-46.0) % Plt Count (150-450) k/uL Neutrophils # (1.3-7.7) k/uL ABG pH (7.35-7.45) ABG pCO2 (35-45) mmHg ABG Lactic Acid 2.3 H* (0.5-1.6) mmol/L Potassium (3.5-5.1) mmol/L Chloride 108 H (98-107) mmol/L Carbon Dioxide (22-30) mmol/L BUN 38 H (7-17) mg/dL Creatinine 3.04 H (0.52-1.04) mg/dL Glucose 130 H (74-99) mg/dL POC Glucose (mg/dL) 138 H (70-110) mg/dL Calcium 7.1 L (8.4-10.2) mg/dL Phosphorus 6.1 H (2.5-4.5) mg/dL Magnesium 1.5 L (1.6-2.3) mg/dL AST 289 H (14-36) U/L ALT 251 H (4-34) U/L Total Protein 5.0 L (6.3-8.2) g/dL Albumin 2.5 L (3.5-5.0) g/dL 02/15/23 02/15/23 02/15/23 Range/Units 04:59 06:00 06:01 WBC (3.8-10.6) k/uL RBC (3.80-5.40) m/uL Hgb (11.4-16.0) gm/dL Hct (34.0-46.0) % Plt Count (150-450) k/uL Neutrophils # (1.3-7.7) k/uL ABG pH 7.32 L (7.35-7.45) ABG pCO2 (35-45) mmHg ABG Lactic Acid (0.5-1.6) mmol/L Potassium (3.5-5.1) mmol/L Chloride (98-107) mmol/L Carbon Dioxide (22-30) mmol/L BUN (7-17) mg/dL Creatinine (0.52-1.04) mg/dL Glucose (74-99) mg/dL POC Glucose (mg/dL) 120 H 116 H (70-110) mg/dL Calcium (8.4-10.2) mg/dL Phosphorus (2.5-4.5) mg/dL Magnesium (1.6-2.3) mg/dL AST (14-36) U/L ALT (4-34) U/L Total Protein (6.3-8.2) g/dL Albumin (3.5-5.0) g/dL 02/15/23 02/15/23 02/15/23 Range/Units 06:52 10:27 11:30 WBC (3.8-10.6) k/uL RBC (3.80-5.40) m/uL Hgb (11.4-16.0) gm/dL Hct (34.0-46.0) % Plt Count (150-450) k/uL Neutrophils # (1.3-7.7) k/uL ABG pH (7.35-7.45) ABG pCO2 (35-45) mmHg ABG Lactic Acid (0.5-1.6) mmol/L Potassium (3.5-5.1) mmol/L Chloride (98-107) mmol/L Carbon Dioxide (22-30) mmol/L BUN (7-17) mg/dL Creatinine (0.52-1.04) mg/dL Glucose (74-99) mg/dL POC Glucose (mg/dL) 119 H 186 H 165 H (70-110) mg/dL Calcium (8.4-10.2) mg/dL Phosphorus (2.5-4.5) mg/dL Magnesium (1.6-2.3) mg/dL AST (14-36) U/L ALT (4-34) U/L Total Protein (6.3-8.2) g/dL Albumin (3.5-5.0) g/dL Microbiology - Last 24 Hours (Table) 02/14/23 04:59 Gram Stain - Preliminary Sputum
[2023-02-15] MEDS: INSULIN ASPART (NovoLOG) 100 UNIT/ML VIAL SQ SCH ×2 (12:59→18:03)
--- NOTE | 2023-02-15 13:24 | P.PN ---
Subjective Progress Note Date: 02/15/23 Principal diagnosis: Cardiopulmonary arrest This is a 77-year-old -[place] female known history of coronary artery disease and previous CABG over 20 years ago. Patient sustained a sudden cardiac arrest yesterday, Found His Mother on the Floor, this was apparently a witnessed collapse, patient sustained some laceration and hematoma over the left periorbital area requiring steri trips placed by the ER physician. EMS performed CPR for about 30 minutes, and she had cardioversion 2. Patient was intubated, and she was brought into the ER and she was noted upon arrival in atrial fibrillation. Then went back into sinus rhythm, initial rhythm according to EMS was asystole. But clearly from the records patient received at least 11 rounds of epinephrine all in all, and she had to be resuscitated again in the ER at least a couple of times. Patient remained hypotensive and transferred to the ICU and she is now requiring epinephrine at 0.12 mcg/kg/m patient is also requiring vasopressin at 0.04 units per minute patient is on heparin drip as per cardiology she is also on propofol at 50 mcg/kg/m. Patient is intubated and mechanically ventilated she is on assist control rate of 24 tidal volume 450 FiO2 on the percent and PEEP of 5 ABG showed a pO2 of 78 pCO2 46 pH of 7.22 initial her vent settings were adjusted and the patient received 1 amp of bicarb rate increased to 28, and repeat ABG showed a pO2 of 75 pCO2 43 pH of 7.29. Looking at the medications given during her resuscitation patient received 11 A of epinephrine she received 3 A of bicarb and she was defibrillated 2. Hence down time is basically over 60 minutes cardiology felt that the patient had significant anoxic injury, and did not feel that the patient should have cardiac catheterization at this point. Awaiting to determine whether the patient is going to show any signs of neurological recovery. I did see the patient in the ICU, and I discussed her condition with the family, discussed the different options of treatment including the option of continuing full support and keeping the patient full code versus continuing the same but changing the CODE STATUS to DO NOT RESUSCITATE versus comfort care measures and letting the patient passed comfortably peacefully and dignified. Family is yet to decide on different options that where discussed Patient was reevaluated today on 02/15/23, remains in the ICU, intubated and mechanically ventilated. Patient is on assist control rate of 28.450 FiO2 was 80% and I cut it down to 60% PEEP was at 5 and I increased the PEEP up to 10. ABG showed a pO2 of 88 pCO2 43 pH of 7.32. Patient is still requiring multiple pressors including epinephrine at 0.1 for microalbumin per kilo per minute, which is also on vasopressin at 0.04 units per minute. Patient had to be placed on Nimbex yesterday because she was not synchronous with the ventilator, and propofol could not take care of the issue. Is also on propofol at 50 mg/kg/m Nimbex is at 1.5 mg/kg/m. No regional climate change analyst the last 24 hours, patient must have sustained significant anoxic brain injury, hence neurology was consulted to see the patient today, and considering the patient has hardly any urine output and most likely she developed acute tubular necrosis and kidney injury, I'm recommending nephrology to see the patient today. In the meantime the patient will be started on enteral feeding, we'll continue Zosyn, and continue propofol but discontinue Nimbex. Decadron was added 6 mg IV push every 12 hours. Patient is a sliding scale for her elevated blood sugar, and today I recommended one dose of Lasix 80 mg IV push 1 since the patient is not making much of any urine. WBC count is up today 27.7 hemoglobin is 9.8. Basic metabolic profile is normal, renal profile showed worsening BUN up to 38 creatinine is worsening couple to 3.04 liver enzymes are elevated AST of 289 and ALT of 251. Troponin yesterday was as high as 13, and BNP level is 8610 chest x-ray today showed clear right lung, however significant findings noted on the left lung with consolidation involving the left upper lobe left midlung and left lower lobe. Clearly the patient has patchy airspace disease involving the left lung mostly. It is empirically on Zosyn Objective - Vital Signs Vital signs: Vital Signs Temp 100.5 F H 02/15/23 12:00 Pulse 108 H 02/15/23 13:00 Resp 20 02/15/23 13:00 BP 127/70 02/15/23 13:00 Pulse Ox 96 02/15/23 13:00 FiO2 55 02/15/23 12:00 Intake & Output 02/14/23 02/15/23 02/15/23 18:59 06:59 18:59 Intake Total 8690.460 0242.036 690.069 Output Total 0 58 0 Balance 2430.127 9864.036 690.069 Weight 91.762 kg 94.5 kg 94.5 kg Intake: IV 470 220 180 .9 @ KVO 220 220 80 Piperacillin-Tazobactam 3 100 .375 gm In Sodium Chloride 0.9% 100 ml @ 25 mls/hr IVPB Q12HR [facility] Rx #:[id number] Potassium Chloride 20 meq 250 In Water For Injection 1 100ml.bag @ 50 mls/hr IVPB Q2H [facility] Rx#: [id number] Intake, IV Titration 221.369 8249.036 510.069 Amount Cisatracurium 200 mg In 17.986 135.448 Sodium Chloride 0.9% 180 ml @ 1 MCG/KG/MIN 5.506 mls/hr IV .Q24H [facility] Rx#: [id number] EPINEPHrine 4 mg In 451.589 493.284 261.636 Dextrose 5% in Water 250 ml @ 0.03 MCG/KG/MIN 10. 323 mls/hr IV .Q24H [facility] Rx#:[id number] Insulin Regular 100 unit 77.717 56.310 In Sodium Chloride 0.9% 100 ml @ Titrate IV .Q0M [facility] Rx#:[id number] Vasopressin 60 unit In 138.388 Sodium Chloride 0.9% 150 ml @ 0.04 UNITS/MIN 6.12 mls/hr IV .Q24H [facility] Rx#: [id number] propofoL 1,000 mg In 297.634 350.054 112.985 Empty Bag 1 bag @ 15 MCG/ KG/MIN 8.259 mls/hr IV . Q12H7M [facility] Rx#:[id number] Output: Gastric Drainage 50 Urine 0 8 0 Other: Voiding Method Indwelling Catheter Indwelling Catheter ABP, PAP, CO, CI - Last Documented Arterial Blood Pressure 128/67 - Exam Physical Exam: Revealed a 77-year-old female intubated mechanically ventilated sedated Head: There is evidence of large periorbital hematoma on the left side with laceration noted medial to the left eye HEENT:[Neck is supple.] [No neck masses.] [No thyromegaly.] [No JVD.] Endotracheal tube and orogastric tubes are intact Chest: Symmetrical chest expansion, crackles at the bases left more so than right. Cardiac Exam: Distant S1 and S2, no S3 gallop, 2/6 systolic murmur thought the precordium. Abdomen: [Soft, nontender, no megaly, no rebound, no guarding, normal bowel sounds.] Extremities: [No clubbing, no edema, no cyanosis.] Diminished distal pulses. Neurological Exam: Patient is unresponsive to any stimuli. Pupils are pinpoint, nonreactive. Psychiatric: Could not be assessed. Skin: No rashes. - Labs CBC & Chem 7: 02/15/23 03:45 02/15/23 03:45 Labs: Abnormal Lab Results - Last 24 Hours (Table) 02/14/23 02/14/23 02/14/23 Range/Units 13:05 14:40 16:09 WBC (3.8-10.6) k/uL RBC (3.80-5.40) m/uL Hgb (11.4-16.0) gm/dL Hct (34.0-46.0) % Plt Count (150-450) k/uL Neutrophils # (1.3-7.7) k/uL ABG pH (7.35-7.45) ABG pCO2 (35-45) mmHg ABG Lactic Acid (0.5-1.6) mmol/L Potassium 3.4 L (3.5-5.1) mmol/L Chloride 112 H (98-107) mmol/L Carbon Dioxide 14 L (22-30) mmol/L BUN 30 H (7-17) mg/dL Creatinine 2.19 H (0.52-1.04) mg/dL Glucose 308 H (74-99) mg/dL POC Glucose (mg/dL) 308 H 300 H (70-110) mg/dL Calcium 7.1 L (8.4-10.2) mg/dL Phosphorus (2.5-4.5) mg/dL Magnesium (1.6-2.3) mg/dL AST (14-36) U/L ALT (4-34) U/L Total Protein (6.3-8.2) g/dL Albumin (3.5-5.0) g/dL 02/14/23 02/14/23 02/14/23 Range/Units 16:56 18:05 18:49 WBC (3.8-10.6) k/uL RBC (3.80-5.40) m/uL Hgb (11.4-16.0) gm/dL Hct (34.0-46.0) % Plt Count (150-450) k/uL Neutrophils # (1.3-7.7) k/uL ABG pH (7.35-7.45) ABG pCO2 (35-45) mmHg ABG Lactic Acid (0.5-1.6) mmol/L Potassium (3.5-5.1) mmol/L Chloride (98-107) mmol/L Carbon Dioxide (22-30) mmol/L BUN (7-17) mg/dL Creatinine (0.52-1.04) mg/dL Glucose (74-99) mg/dL POC Glucose (mg/dL) 282 H 257 H 217 H (70-110) mg/dL Calcium (8.4-10.2) mg/dL Phosphorus (2.5-4.5) mg/dL Magnesium (1.6-2.3) mg/dL AST (14-36) U/L ALT (4-34) U/L Total Protein (6.3-8.2) g/dL Albumin (3.5-5.0) g/dL 02/14/23 02/14/23 02/14/23 Range/Units 19:58 20:23 20:58 WBC (3.8-10.6) k/uL RBC (3.80-5.40) m/uL Hgb (11.4-16.0) gm/dL Hct (34.0-46.0) % Plt Count (150-450) k/uL Neutrophils # (1.3-7.7) k/uL ABG pH 7.27 L (7.35-7.45) ABG pCO2 47 H (35-45) mmHg ABG Lactic Acid (0.5-1.6) mmol/L Potassium (3.5-5.1) mmol/L Chloride (98-107) mmol/L Carbon Dioxide (22-30) mmol/L BUN (7-17) mg/dL Creatinine (0.52-1.04) mg/dL Glucose (74-99) mg/dL POC Glucose (mg/dL) 200 H 215 H (70-110) mg/dL Calcium (8.4-10.2) mg/dL Phosphorus (2.5-4.5) mg/dL Magnesium (1.6-2.3) mg/dL AST (14-36) U/L ALT (4-34) U/L Total Protein (6.3-8.2) g/dL Albumin (3.5-5.0) g/dL 02/14/23 02/15/23 02/15/23 Range/Units 21:55 03:45 03:45 WBC 27.7 H (3.8-10.6) k/uL RBC 3.20 L (3.80-5.40) m/uL Hgb 9.8 L D (11.4-16.0) gm/dL Hct 30.0 L (34.0-46.0) % Plt Count 115 L (150-450) k/uL Neutrophils # 25.1 H (1.3-7.7) k/uL ABG pH (7.35-7.45) ABG pCO2 (35-45) mmHg ABG Lactic Acid (0.5-1.6) mmol/L Potassium (3.5-5.1) mmol/L Chloride 108 H (98-107) mmol/L Carbon Dioxide (22-30) mmol/L BUN 38 H (7-17) mg/dL Creatinine 3.04 H (0.52-1.04) mg/dL Glucose 130 H (74-99) mg/dL POC Glucose (mg/dL) 138 H (70-110) mg/dL Calcium 7.1 L (8.4-10.2) mg/dL Phosphorus 6.1 H (2.5-4.5) mg/dL Magnesium 1.5 L (1.6-2.3) mg/dL AST 289 H (14-36) U/L ALT 251 H (4-34) U/L Total Protein 5.0 L (6.3-8.2) g/dL Albumin 2.5 L (3.5-5.0) g/dL 02/15/23 02/15/23 02/15/23 Range/Units 03:46 04:10 04:59 WBC (3.8-10.6) k/uL RBC (3.80-5.40) m/uL Hgb (11.4-16.0) gm/dL Hct (34.0-46.0) % Plt Count (150-450) k/uL Neutrophils # (1.3-7.7) k/uL ABG pH (7.35-7.45) ABG pCO2 (35-45) mmHg ABG Lactic Acid 2.3 H* (0.5-1.6) mmol/L Potassium (3.5-5.1) mmol/L Chloride (98-107) mmol/L Carbon Dioxide (22-30) mmol/L BUN (7-17) mg/dL Creatinine (0.52-1.04) mg/dL Glucose (74-99) mg/dL POC Glucose (mg/dL) 138 H 120 H (70-110) mg/dL Calcium (8.4-10.2) mg/dL Phosphorus (2.5-4.5) mg/dL Magnesium (1.6-2.3) mg/dL AST (14-36) U/L ALT (4-34) U/L Total Protein (6.3-8.2) g/dL Albumin (3.5-5.0) g/dL 02/15/23 02/15/23 02/15/23 Range/Units 06:00 06:01 06:52 WBC (3.8-10.6) k/uL RBC (3.80-5.40) m/uL Hgb (11.4-16.0) gm/dL Hct (34.0-46.0) % Plt Count (150-450) k/uL Neutrophils # (1.3-7.7) k/uL ABG pH 7.32 L (7.35-7.45) ABG pCO2 (35-45) mmHg ABG Lactic Acid (0.5-1.6) mmol/L Potassium (3.5-5.1) mmol/L Chloride (98-107) mmol/L Carbon Dioxide (22-30) mmol/L BUN (7-17) mg/dL Creatinine (0.52-1.04) mg/dL Glucose (74-99) mg/dL POC Glucose (mg/dL) 116 H 119 H (70-110) mg/dL Calcium (8.4-10.2) mg/dL Phosphorus (2.5-4.5) mg/dL Magnesium (1.6-2.3) mg/dL AST (14-36) U/L ALT (4-34) U/L Total Protein (6.3-8.2) g/dL Albumin (3.5-5.0) g/dL 02/15/23 02/15/23 Range/Units 10:27 11:30 WBC (3.8-10.6) k/uL RBC (3.80-5.40) m/uL Hgb (11.4-16.0) gm/dL Hct (34.0-46.0) % Plt Count (150-450) k/uL Neutrophils # (1.3-7.7) k/uL ABG pH (7.35-7.45) ABG pCO2 (35-45) mmHg ABG Lactic Acid (0.5-1.6) mmol/L Potassium (3.5-5.1) mmol/L Chloride (98-107) mmol/L Carbon Dioxide (22-30) mmol/L BUN (7-17) mg/dL Creatinine (0.52-1.04) mg/dL Glucose (74-99) mg/dL POC Glucose (mg/dL) 186 H 165 H (70-110) mg/dL Calcium (8.4-10.2) mg/dL Phosphorus (2.5-4.5) mg/dL Magnesium (1.6-2.3) mg/dL AST (14-36) U/L ALT (4-34) U/L Total Protein (6.3-8.2) g/dL Albumin (3.5-5.0) g/dL Microbiology - Last 24 Hours (Table) 02/14/23 04:59 Gram Stain - Preliminary Sputum Assessment and Plan Assessment: Impression: Acute hypoxic and hypercapnic respiratory failure secondary to cardiac arrest Prolonged CPR and severe metabolic and respiratory acidosis Acute ST elevation myocardial infarction with inferior lateral wall EKG changes Strongly suspect anoxic encephalopathy and anoxic brain injury Acute kidney injury/acute tubular necrosis secondary to prolonged CPR and hypotension Left facial hematoma secondary to fall/trauma History of coronary artery disease and previous CABG over 20 years ago. History of benign essential hypertension History of obstructive sleep apnea syndrome Hypotension requiring pressors/cardiogenic in nature. Recommendation: Continue ventilatory support Continue hemodynamic support however will transition epinephrine to norepinephrine/levo We'll consult neurology to assess for anoxic brain injury patient will likely need at least an EEG she already had a CT of the brain on admission. Start enteral feeding/nutritional support Cardiology to see the patient on consultation. GI prophylaxis Zosyn for presumptive aspiration pneumonia Nephrology to see on consultation Discussed patient condition again with the daughter and so far family is undecided about withdrawal of care/terminal weaning or DO NOT RESUSCITATE CODE STATUS. Patient is critically ill Critical care time is over 30 minutes Time with Patient: Greater than 30
--- NOTE | 2023-02-15 13:59 | US ---
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 No hydronephrosis on the right. 2. 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 3. A third 1.4 cm lesion centrally could represent a parapelvic cyst. 4. Initial 3 month follow-up ultrasound to reassess and exclude underlying neoplastic etiology. 5. Note that the production quality analyst was unable to image the left kidney due to the patient's condition.
[2023-02-15] MEDS: CISATRACURIUM 200 MG in SODIUM CHLORIDE 0.9% 180 ML IV SCH (14:23)
--- NOTE | 2023-02-15 14:54 | P.CNNES ---
History of Present Illness Consult date: 02/15/23 Requesting physician: Chiara Borjas Reason for Consult: ams, cardiac arrest History of Present Illness: This is a 77-year-old woman who presented emergency department because of the cardiac arrest outside the hospital. History is obtained from medical record and ICU nurses. It seems the patient was found on the floor by her mother and apparently he had a witnessed collapse with laceration over the left. Orbital. It seems that the patient had that CPR outside the hospital according to nursing staff for 30 minutes then had another 30 minutes of CPR in our facility reported by the nursing staff. It seems that he had to cardioversion by EMS. He was intubated. He was noted on arrival he had atrial fibrillation. It seems that back to sinus rhythm according to the EMS and was asystole. Patient received 11 rounds of epinephrine, bicarb and had defibrillator 2. This was placed on heparin drip. Incision was down for a total of 60 minutes as stated 30 minutes outside the hospital and 30 minutes in our facility. 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 Patient was mechanically ventilated. Was placed on IV propofol. She is also on IV Nimbex. According to see you nursing staff and family would like to continue with the further medical management. Some of the workup during his hospital visit consisted of: Initial white blood cell is 11.9 most recent is 27.7. Sodium is 142, calcium 7.1, phosphorus is 6.1, magnesium is 1.5, AST 289 ALT 251. Creatinine is 3.04 and BUN is 38. CT of the head on 02/14/23: No intracranial hemorrhage or skull fracture. In the body report it is reported as encephalomalacia over the right temporal. I personally reviewed and I agree there is no acute subacute ischemia. 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 CTcervical spine on 02/14/2023 is reported as no fracture or subluxation. Bilateral pneumonia, pulmonary contusion versus aspiration worse in the left. CT face is reported as no fracture. Review of Systems Is limited. Past Medical History Past Medical History: Coronary Artery Disease (CAD), Hypertension, Sleep Apnea/CPAP/BIPAP Additional Past Medical History / Comment(s): Sciatica History of Any Multi-Drug Resistant Organisms: None Reported Past Surgical History: Coronary Bypass/CABG Additional Past Surgical History / Comment(s): Early (2002 or 2004) Past Anesthesia/Blood Transfusion Reactions: No Reported Reaction Past Psychological History: No Psychological Hx Reported Smoking Status: Former smoker - Past Family History Mother Family Medical History: No Reported History Medications and Allergies Home Medications Medication Instructions Recorded Confirmed Type Metoprolol Tartrate [Lopressor] 25 mg PO BID 07/23/13 02/14/23 History Irbesartan 300 mg PO DAILY 04/08/22 02/14/23 History Latanoprost/Pf [Latanoprost 0.005% 1 drop BOTH EYES HS 04/08/22 02/14/23 History Eye Drop] [place]-3 Fatty Acids [[place]-3] 1,000 mg PO DAILY 04/08/22 02/14/23 History Albuterol Sulfate [Albuterol 2 puff PO RT-Q4H PRN 02/14/23 02/14/23 History Sulfate Hfa] Aspirin EC [Ecotrin Low Dose] 81 mg PO DAILY 02/14/23 02/14/23 History Ergocalciferol [Vitamin D2 (1250 1,250 mcg PO QMONTHLY 02/14/23 02/14/23 History Mcg = 21953 Iu)] Spironolactone 25 mg PO DAILY 02/14/23 02/14/23 History amLODIPine [Norvasc] 10 mg PO DAILY 02/14/23 02/14/23 History Allergies Allergy/AdvReac Type Severity Reaction Status Date / Time No Known Allergies Allergy Verified 02/14/23 09:12 Physical Examination - Vital Signs Vital Signs: Vital Signs Temp Pulse Resp BP Pulse Ox FiO2 02/15/23 14:15 108 H 28 H 127/70 96 02/15/23 14:00 103 H 28 H 127/70 95 02/15/23 13:45 103 H 28 H 127/70 95 02/15/23 13:30 105 H 28 H 127/70 95 02/15/23 13:15 107 H 28 H 127/70 95 02/15/23 13:00 108 H 20 127/70 96 02/15/23 12:45 111 H 31 H 127/70 97 02/15/23 12:30 113 H 41 H 127/70 98 02/15/23 12:15 114 H 44 H 127/70 96 02/15/23 12:00 100.5 F H 115 H 38 H 127/70 94 L 55 02/15/23 11:45 106 H 32 H 127/70 93 L 02/15/23 11:30 111 H 31 H 127/70 94 L 02/15/23 11:27 114 H 02/15/23 11:17 111 H 02/15/23 11:15 105 H 33 H 96 02/15/23 11:13 60 02/15/23 11:00 114 H 30 H 127/70 100 02/15/23 10:45 104 H 28 H 127/70 96 02/15/23 10:30 110 H 30 H 127/70 95 02/15/23 10:15 107 H 29 H 127/70 96 02/15/23 10:00 105 H 28 H 127/70 94 L 02/15/23 09:45 105 H 28 H 127/70 94 L 02/15/23 09:30 104 H 29 H 127/70 94 L 02/15/23 09:29 60 02/15/23 09:15 101 H 28 H 127/70 95 02/15/23 09:00 102 H 29 H 127/70 95 02/15/23 08:45 101 H 28 H 127/70 95 02/15/23 08:30 101 H 28 H 127/70 94 L 02/15/23 08:15 101 H 28 H 127/70 95 02/15/23 08:09 100 02/15/23 08:07 80 02/15/23 08:00 99.2 F 101 H 29 H 127/70 94 L 80 02/15/23 07:45 98 28 H 95 02/15/23 07:30 100 28 H 94 L 02/15/23 07:15 100 29 H 94 L 02/15/23 07:00 99 28 H 94 L 02/15/23 06:45 99 28 H 94 L 02/15/23 06:30 100 28 H 94 L 02/15/23 06:15 100 28 H 93 L 02/15/23 06:00 99 28 H 93 L 02/15/23 05:45 99 28 H 94 L 02/15/23 05:30 100 28 H 93 L 02/15/23 05:15 100 25 H 92 L 02/15/23 05:00 99 28 H 97 02/15/23 04:45 101 H 28 H 95 02/15/23 04:30 99 28 H 94 L 02/15/23 04:20 96 02/15/23 04:15 98 28 H 95 02/15/23 04:06 98 02/15/23 04:00 100.5 F H 98 28 H 94 L 90 02/15/23 03:45 98 28 H 94 L 02/15/23 03:34 80 02/15/23 03:30 98 28 H 93 L 02/15/23 03:15 97 28 H 93 L 02/15/23 03:00 97 28 H 94 L 02/15/23 02:45 96 28 H 93 L 02/15/23 02:30 97 28 H 93 L 02/15/23 02:15 97 28 H 93 L 02/15/23 02:00 96 28 H 92 L 80 02/15/23 01:45 96 28 H 97 02/15/23 01:33 80 02/15/23 01:30 97 28 H 95 02/15/23 01:15 96 28 H 97 02/15/23 01:00 96 28 H 98 02/15/23 00:45 96 28 H 97 02/15/23 00:30 96 28 H 98 02/15/23 00:15 96 28 H 97 02/15/23 00:00 99.8 F H 95 28 H 97 90 02/14/23 23:45 95 28 H 99 02/14/23 23:30 95 28 H 98 02/14/23 23:15 95 28 H 99 02/14/23 23:01 95 28 H 98 02/14/23 23:00 95 28 H 97 02/14/23 22:45 95 28 H 98 02/14/23 22:30 95 28 H 97 02/14/23 22:15 96 28 H 98 02/14/23 22:00 94 28 H 97 02/14/23 21:45 94 28 H 98 02/14/23 21:30 93 28 H 97 02/14/23 21:15 93 28 H 95 90 02/14/23 21:00 94 28 H 111/71 95 02/14/23 20:53 96 02/14/23 20:45 96 0 L 111/71 99 02/14/23 20:30 95 28 H 122/70 97 100 02/14/23 20:28 90 02/14/23 20:15 96 28 H 128/73 81 L 02/14/23 20:12 100 02/14/23 20:09 60 02/14/23 20:00 99.4 F 100 28 H 138/81 77 L 100 02/14/23 19:45 103 H 28 H 124/79 90 L 02/14/23 19:30 100 28 H 109/64 91 L 02/14/23 19:15 101 H 28 H 90 L 02/14/23 19:00 103 H 28 H 109/64 90 L 02/14/23 18:45 105 H 28 H 109/64 90 L 02/14/23 18:30 101 H 28 H 94 L 02/14/23 18:15 101 H 28 H 97 02/14/23 18:00 101 H 28 H 100 02/14/23 17:45 101 H 28 H 100 02/14/23 17:30 103 H 28 H 93 L 02/14/23 17:15 104 H 28 H 92 L 02/14/23 17:00 103 H 28 H 99 02/14/23 16:45 103 H 28 H 98 02/14/23 16:30 102 H 28 H 98 02/14/23 16:15 104 H 28 H 99 02/14/23 16:00 98.7 F 104 H 28 H 97 60 02/14/23 15:45 102 H 28 H 99 02/14/23 15:30 101 H 0 L 98 02/14/23 15:26 100 02/14/23 15:16 98 60 02/14/23 15:15 99 0 L 100 02/14/23 15:00 96 0 L 100 02/14/23 14:45 92 0 L 100 Intake and Output 02/14/23 02/15/23 02/15/23 22:59 06:59 14:59 Intake Total 942.057 794.020 773.569 Output Total 0 58 0 Balance 942.057 736.020 773.569 Intake: IV 160 140 200 .9 @ KVO 160 140 100 Piperacillin-Tazobactam 3 100 .375 gm In Sodium Chloride 0.9% 100 ml @ 25 mls/hr IVPB Q12HR [facility] Rx #:[id number] Intake, IV Titration 782.057 654.020 573.569 Amount Cisatracurium 200 mg In 17.986 135.448 Sodium Chloride 0.9% 180 ml @ 1 MCG/KG/MIN 5.506 mls/hr IV .Q24H [facility] Rx#: [id number] EPINEPHrine 4 mg In 493.284 250 261.636 Dextrose 5% in Water 250 ml @ 0.03 MCG/KG/MIN 10. 323 mls/hr IV .Q24H [facility] Rx#:[id number] Insulin Regular 100 unit 112.037 In Sodium Chloride 0.9% 100 ml @ Titrate IV .Q0M [facility] Rx#:[id number] Vasopressin 60 unit In 138.388 Sodium Chloride 0.9% 150 ml @ 0.04 UNITS/MIN 6.12 mls/hr IV .Q24H [facility] Rx#: [id number] propofoL 1,000 mg In 158.750 265.632 176.485 Empty Bag 1 bag @ 15 MCG/ KG/MIN 8.259 mls/hr IV . Q12H7M [facility] Rx#:[id number] Output: Gastric Drainage 50 Urine 0 8 0 Other: Voiding Method Indwelling Catheter Indwelling Catheter Weight 94.5 kg 94.5 kg ABP, PAP, CO, CI - Last 8 Hours Arterial Blood Pressure 114/58 Arterial Blood Pressure 108/56 Arterial Blood Pressure 112/58 Arterial Blood Pressure 114/59 Arterial Blood Pressure 140/66 Arterial Blood Pressure 128/67 Arterial Blood Pressure 89/52 Arterial Blood Pressure 160/80 Arterial Blood Pressure 146/75 Arterial Blood Pressure 146/74 Arterial Blood Pressure 116/60 Arterial Blood Pressure 38/36 Arterial Blood Pressure 153/69 Arterial Blood Pressure 195/84 Arterial Blood Pressure 107/51 Arterial Blood Pressure 111/53 Arterial Blood Pressure 161/69 Arterial Blood Pressure 145/63 Arterial Blood Pressure 136/60 Arterial Blood Pressure 113/54 Arterial Blood Pressure 120/54 Arterial Blood Pressure 109/50 Arterial Blood Pressure 120/49 Arterial Blood Pressure 126/55 Arterial Blood Pressure 103/48 Arterial Blood Pressure 110/50 Arterial Blood Pressure 109/48 Arterial Blood Pressure 114/53 Arterial Blood Pressure 117/52 Arterial Blood Pressure 95/44 Arterial Blood Pressure 110/51 General: Lying in bed and does not appear in acute distress. HENT: Hematoma over the left periorbital and has tape over left eye REspiratory: Intubated on ventilator. Neuro: Limited. IV Propofol of 50mg/kg/min is held for 1 hour prior to examination. IV Nimbex 1.5mcg/kg/min and held for 1 hour. Is comatose. GCS 3 (E1, VT1, M1). I had to manually open eye over the right and the left had tape. The right pupil is about 1 mm pinpoint. No corneal reflex. Negative the oculocephalic. His breathing over the vent. No gag or cough that's appreciable. Motor the strength is very limited but no spontaneous movement and not withdrawing to painful some light throughout. No myoclonic jerks. Decrease tone throughout. The plantars are mute bilaterally. Results - Laboratory Findings CBC and BMP: 02/15/23 03:45 02/15/23 03:45 Abnormal Lab Findings: Abnormal Labs 02/14/23 02/14/23 02/14/23 00:49 00:49 00:49 WBC 11.9 H RBC Hgb Hct MCV 100.5 H MCHC 30.9 L Plt Count 132 L Neutrophils # Lymphocytes # 5.4 H PT 13.3 H INR 1.3 H APTT 40.4 H ABG pH ABG pCO2 ABG pO2 ABG HCO3 ABG O2 Saturation ABG Lactic Acid Potassium 3.2 L Chloride 109 H Carbon Dioxide 13 L BUN 18 H Creatinine 1.42 H Glucose 308 H POC Glucose (mg/dL) Plasma Lactic Acid Klever Calcium Phosphorus 7.6 H Magnesium AST 139 H ALT 115 H Troponin I Total Protein Albumin 02/14/23 02/14/23 02/14/23 00:49 00:49 02:25 WBC RBC Hgb Hct MCV MCHC Plt Count Neutrophils # Lymphocytes # PT INR APTT ABG pH 7.07 L* ABG pCO2 67 H ABG pO2 114 H ABG HCO3 19 L ABG O2 Saturation ABG Lactic Acid Potassium Chloride Carbon Dioxide BUN Creatinine Glucose POC Glucose (mg/dL) Plasma Lactic Acid Klever 10.4 H* Calcium Phosphorus Magnesium AST ALT Troponin I 0.127 H* Total Protein Albumin 02/14/23 02/14/23 02/14/23 04:33 04:46 04:46 WBC 22.2 H RBC Hgb Hct MCV MCHC Plt Count Neutrophils # 18.1 H Lymphocytes # PT INR APTT ABG pH ABG pCO2 ABG pO2 ABG HCO3 ABG O2 Saturation ABG Lactic Acid Potassium Chloride Carbon Dioxide BUN Creatinine Glucose POC Glucose (mg/dL) 219 H Plasma Lactic Acid Klever 10.1 H* Calcium Phosphorus Magnesium AST ALT Troponin I Total Protein Albumin 02/14/23 02/14/23 02/14/23 04:46 06:32 07:49 WBC RBC Hgb Hct MCV MCHC Plt Count Neutrophils # Lymphocytes # PT INR APTT ABG pH 7.22 L ABG pCO2 46 H ABG pO2 78 L ABG HCO3 19 L ABG O2 Saturation 93.1 L ABG Lactic Acid Potassium 2.8 L Chloride 108 H Carbon Dioxide 18 L BUN 25 H Creatinine 1.70 H Glucose 282 H POC Glucose (mg/dL) Plasma Lactic Acid Klever 9.6 H* Calcium 7.8 L Phosphorus Magnesium AST ALT Troponin I Total Protein Albumin 02/14/23 02/14/23 02/14/23 07:49 09:12 09:25 WBC RBC Hgb Hct MCV MCHC Plt Count Neutrophils # Lymphocytes # PT INR APTT ABG pH 7.29 L ABG pCO2 ABG pO2 75 L ABG HCO3 ABG O2 Saturation ABG Lactic Acid Potassium Chloride Carbon Dioxide BUN Creatinine Glucose POC Glucose (mg/dL) 309 H Plasma Lactic Acid Klever Calcium Phosphorus Magnesium AST ALT Troponin I 11.600 H* Total Protein Albumin 02/14/23 02/14/23 02/14/23 10:33 10:35 10:38 WBC RBC Hgb Hct MCV MCHC Plt Count Neutrophils # Lymphocytes # PT INR APTT ABG pH ABG pCO2 ABG pO2 ABG HCO3 ABG O2 Saturation ABG Lactic Acid Potassium Chloride Carbon Dioxide BUN Creatinine Glucose POC Glucose (mg/dL) 320 H Plasma Lactic Acid Klever 8.6 H* Calcium Phosphorus Magnesium AST ALT Troponin I 13.000 H* Total Protein Albumin 02/14/23 02/14/23 02/14/23 11:58 13:04 13:05 WBC RBC Hgb Hct MCV MCHC Plt Count Neutrophils # Lymphocytes # PT INR APTT ABG pH ABG pCO2 ABG pO2 ABG HCO3 ABG O2 Saturation ABG Lactic Acid Potassium 3.4 L Chloride 112 H Carbon Dioxide 14 L BUN 30 H Creatinine 2.19 H Glucose 308 H POC Glucose (mg/dL) 273 H 309 H Plasma Lactic Acid Klever Calcium 7.1 L Phosphorus Magnesium AST ALT Troponin I Total Protein Albumin 02/14/23 02/14/23 02/14/23 14:40 16:09 16:56 WBC RBC Hgb Hct MCV MCHC Plt Count Neutrophils # Lymphocytes # PT INR APTT ABG pH ABG pCO2 ABG pO2 ABG HCO3 ABG O2 Saturation ABG Lactic Acid Potassium Chloride Carbon Dioxide BUN Creatinine Glucose POC Glucose (mg/dL) 308 H 300 H 282 H Plasma Lactic Acid Klever Calcium Phosphorus Magnesium AST ALT Troponin I Total Protein Albumin 02/14/23 02/14/23 02/14/23 18:05 18:49 19:58 WBC RBC Hgb Hct MCV MCHC Plt Count Neutrophils # Lymphocytes # PT INR APTT ABG pH ABG pCO2 ABG pO2 ABG HCO3 ABG O2 Saturation ABG Lactic Acid Potassium Chloride Carbon Dioxide BUN Creatinine Glucose POC Glucose (mg/dL) 257 H 217 H 200 H Plasma Lactic Acid Klever Calcium Phosphorus Magnesium AST ALT Troponin I Total Protein Albumin 02/14/23 02/14/23 02/14/23 20:23 20:58 21:55 WBC RBC Hgb Hct MCV MCHC Plt Count Neutrophils # Lymphocytes # PT INR APTT ABG pH 7.27 L ABG pCO2 47 H ABG pO2 ABG HCO3 ABG O2 Saturation ABG Lactic Acid Potassium Chloride Carbon Dioxide BUN Creatinine Glucose POC Glucose (mg/dL) 215 H 138 H Plasma Lactic Acid Klever Calcium Phosphorus Magnesium AST ALT Troponin I Total Protein Albumin 02/15/23 02/15/23 02/15/23 03:45 03:45 03:46 WBC 27.7 H RBC 3.20 L Hgb 9.8 L D Hct 30.0 L MCV MCHC Plt Count 115 L Neutrophils # 25.1 H Lymphocytes # PT INR APTT ABG pH ABG pCO2 ABG pO2 ABG HCO3 ABG O2 Saturation ABG Lactic Acid Potassium Chloride 108 H Carbon Dioxide BUN 38 H Creatinine 3.04 H Glucose 130 H POC Glucose (mg/dL) 138 H Plasma Lactic Acid Klever Calcium 7.1 L Phosphorus 6.1 H Magnesium 1.5 L AST 289 H ALT 251 H Troponin I Total Protein 5.0 L Albumin 2.5 L 02/15/23 02/15/23 02/15/23 04:10 04:59 06:00 WBC RBC Hgb Hct MCV MCHC Plt Count Neutrophils # Lymphocytes # PT INR APTT ABG pH 7.32 L ABG pCO2 ABG pO2 ABG HCO3 ABG O2 Saturation ABG Lactic Acid 2.3 H* Potassium Chloride Carbon Dioxide BUN Creatinine Glucose POC Glucose (mg/dL) 120 H Plasma Lactic Acid Klever Calcium Phosphorus Magnesium AST ALT Troponin I Total Protein Albumin 02/15/23 02/15/23 02/15/23 06:01 06:52 10:27 WBC RBC Hgb Hct MCV MCHC Plt Count Neutrophils # Lymphocytes # PT INR APTT ABG pH ABG pCO2 ABG pO2 ABG HCO3 ABG O2 Saturation ABG Lactic Acid Potassium Chloride Carbon Dioxide BUN Creatinine Glucose POC Glucose (mg/dL) 116 H 119 H 186 H Plasma Lactic Acid Klever Calcium Phosphorus Magnesium AST ALT Troponin I Total Protein Albumin 02/15/23 11:30 WBC RBC Hgb Hct MCV MCHC Plt Count Neutrophils # Lymphocytes # PT INR APTT ABG pH ABG pCO2 ABG pO2 ABG HCO3 ABG O2 Saturation ABG Lactic Acid Potassium Chloride Carbon Dioxide BUN Creatinine Glucose POC Glucose (mg/dL) 165 H Plasma Lactic Acid Klever Calcium Phosphorus Magnesium AST ALT Troponin I Total Protein Albumin Assessment and Plan Assessment: This is a 77-year-old woman with cardiopulmonary arrest outside the hospital and had a total of arrest for about 1 hour. Acute cardiopulmonary arrest and total downtime is 60 minutes. Suspect anoxic brain injury due to prolonged cardiopulmonary arrest. Electrolyte imbalance with hyperphosphatemia and hypomagnesemia with elevated AST and ALT. Likely liver shock. Cardiopulmonary arrest Acute ST myocardial infarction Left facial hematoma centered to fall/trauma Acute kidney injury History of coronary artery disease with previous CABG about 20 years ago History of hypertension Cerebral obstructive sleep apnea Plan: Ordered a stat EEG I'll obtain a repeat CT of the head tomorrow we'll Ordered ammonia level. Patient is on IV propofol and Nimbex and was helped about an hour and was only breathing over the vent. If possible hole the sedation for 24-48 hours for better neurological assessment. For electrolyte imbalance correction as well as other medical issues to the primary and other specialists Overall condition is critical. Prognosis appears poor because overall prolonged downtime. The plan is discussed with ICU nursing staff. Time with Patient: Greater than 30
--- NOTE | 2023-02-15 15:29 | P.PN ---
Subjective Progress Note Date: 02/15/23 77-year-old female with history of CAD, status post CABG over 20 years ago who presented with cardiac arrest. The history is obtained from the records and the family. According to the son he came back home and found his mother on the floor, very weak dyspneic and shortly after had cardiac arrest. EMS started CPR that lasted for about 30 minutes requiring cardioversion 2. She was intubated. In the emergency room initially she was in atrial fibrillation and subsequently went back to sinus mechanism. The initial rhythm on the field according to the records was asystole. Patient had a large hematoma on the left side of the face. According to the family she has been doing well recently without any symptoms of angina pectoris nor congestive heart failure but she does not follow-up with cardiology on a regular basis. She had a triple bypass according to them, full detail of her intervention are not available. Her surgery was done at [facility]. The records are not available. No other history is available at this time. The patient is intubated, in sinus mechanism, has no urinary output and is requiring vasopressin and norepinephrine. She was severely acidotic on presentation. -- Patient was intubated and is admitted to ICU; intensive care and cardiology service is on board Objective - Vital Signs Vital signs: Vital Signs Temp 99.2 F 02/15/23 08:00 Pulse 114 H 02/15/23 11:27 Resp 30 H 02/15/23 11:00 BP 127/70 02/15/23 11:00 Pulse Ox 100 02/15/23 11:00 FiO2 60 02/15/23 11:13 Intake & Output 02/14/23 02/15/23 02/15/23 18:59 06:59 18:59 Intake Total 5753.865 7278.036 690.069 Output Total 0 58 0 Balance 1229.570 9860.036 690.069 Weight 91.762 kg 94.5 kg 94.5 kg Intake: IV 470 220 180 .9 @ KVO 220 220 80 Piperacillin-Tazobactam 3 100 .375 gm In Sodium Chloride 0.9% 100 ml @ 25 mls/hr IVPB Q12HR [facility] Rx #:[id number] Potassium Chloride 20 meq 250 In Water For Injection 1 100ml.bag @ 50 mls/hr IVPB Q2H [facility] Rx#: [id number] Intake, IV Titration 423.990 0076.036 510.069 Amount Cisatracurium 200 mg In 17.986 135.448 Sodium Chloride 0.9% 180 ml @ 1 MCG/KG/MIN 5.506 mls/hr IV .Q24H [facility] Rx#: [id number] EPINEPHrine 4 mg In 451.589 493.284 261.636 Dextrose 5% in Water 250 ml @ 0.03 MCG/KG/MIN 10. 323 mls/hr IV .Q24H [facility] Rx#:[id number] Insulin Regular 100 unit 77.717 56.310 In Sodium Chloride 0.9% 100 ml @ Titrate IV .Q0M [facility] Rx#:[id number] Vasopressin 60 unit In 138.388 Sodium Chloride 0.9% 150 ml @ 0.04 UNITS/MIN 6.12 mls/hr IV .Q24H [facility] Rx#: [id number] propofoL 1,000 mg In 297.634 350.054 112.985 Empty Bag 1 bag @ 15 MCG/ KG/MIN 8.259 mls/hr IV . Q12H7M [facility] Rx#:[id number] Output: Gastric Drainage 50 Urine 0 8 0 Other: Voiding Method Indwelling Catheter Indwelling Catheter ABP, PAP, CO, CI - Last Documented Arterial Blood Pressure 195/84 - Exam 77-year-old female, intubated with large hematoma on the left side of the face ,Blood pressure 120/70, Heart rate 80 Head: Hematoma above the left eye and on the left cheek Eyes: Significant edema on the left side Neck: Good carotid upstroke, no bruit, no jugular venous distention. Lungs: Clear to auscultation anteriorly. Heart: Regular rate and rhythm, S1-S2, no S3, no rub. Systolic ejection murmur. Abdomen: Soft, positive bowel sounds no organomegaly. Extremities: Trace to 1+ edema, intact distal pulses. - Labs CBC & Chem 7: 02/15/23 03:45 02/15/23 03:45 Labs: Abnormal Lab Results - Last 24 Hours (Table) 02/14/23 02/14/23 02/14/23 Range/Units 13:04 13:05 14:40 WBC (3.8-10.6) k/uL RBC (3.80-5.40) m/uL Hgb (11.4-16.0) gm/dL Hct (34.0-46.0) % Plt Count (150-450) k/uL Neutrophils # (1.3-7.7) k/uL ABG pH (7.35-7.45) ABG pCO2 (35-45) mmHg ABG Lactic Acid (0.5-1.6) mmol/L Potassium 3.4 L (3.5-5.1) mmol/L Chloride 112 H (98-107) mmol/L Carbon Dioxide 14 L (22-30) mmol/L BUN 30 H (7-17) mg/dL Creatinine 2.19 H (0.52-1.04) mg/dL Glucose 308 H (74-99) mg/dL POC Glucose (mg/dL) 309 H 308 H (70-110) mg/dL Calcium 7.1 L (8.4-10.2) mg/dL Phosphorus (2.5-4.5) mg/dL Magnesium (1.6-2.3) mg/dL AST (14-36) U/L ALT (4-34) U/L Total Protein (6.3-8.2) g/dL Albumin (3.5-5.0) g/dL 02/14/23 02/14/23 02/14/23 Range/Units 16:09 16:56 18:05 WBC (3.8-10.6) k/uL RBC (3.80-5.40) m/uL Hgb (11.4-16.0) gm/dL Hct (34.0-46.0) % Plt Count (150-450) k/uL Neutrophils # (1.3-7.7) k/uL ABG pH (7.35-7.45) ABG pCO2 (35-45) mmHg ABG Lactic Acid (0.5-1.6) mmol/L Potassium (3.5-5.1) mmol/L Chloride (98-107) mmol/L Carbon Dioxide (22-30) mmol/L BUN (7-17) mg/dL Creatinine (0.52-1.04) mg/dL Glucose (74-99) mg/dL POC Glucose (mg/dL) 300 H 282 H 257 H (70-110) mg/dL Calcium (8.4-10.2) mg/dL Phosphorus (2.5-4.5) mg/dL Magnesium (1.6-2.3) mg/dL AST (14-36) U/L ALT (4-34) U/L Total Protein (6.3-8.2) g/dL Albumin (3.5-5.0) g/dL 02/14/23 02/14/23 02/14/23 Range/Units 18:49 19:58 20:23 WBC (3.8-10.6) k/uL RBC (3.80-5.40) m/uL Hgb (11.4-16.0) gm/dL Hct (34.0-46.0) % Plt Count (150-450) k/uL Neutrophils # (1.3-7.7) k/uL ABG pH 7.27 L (7.35-7.45) ABG pCO2 47 H (35-45) mmHg ABG Lactic Acid (0.5-1.6) mmol/L Potassium (3.5-5.1) mmol/L Chloride (98-107) mmol/L Carbon Dioxide (22-30) mmol/L BUN (7-17) mg/dL Creatinine (0.52-1.04) mg/dL Glucose (74-99) mg/dL POC Glucose (mg/dL) 217 H 200 H (70-110) mg/dL Calcium (8.4-10.2) mg/dL Phosphorus (2.5-4.5) mg/dL Magnesium (1.6-2.3) mg/dL AST (14-36) U/L ALT (4-34) U/L Total Protein (6.3-8.2) g/dL Albumin (3.5-5.0) g/dL 02/14/23 02/14/23 02/15/23 Range/Units 20:58 21:55 03:45 WBC 27.7 H (3.8-10.6) k/uL RBC 3.20 L (3.80-5.40) m/uL Hgb 9.8 L D (11.4-16.0) gm/dL Hct 30.0 L (34.0-46.0) % Plt Count 115 L (150-450) k/uL Neutrophils # 25.1 H (1.3-7.7) k/uL ABG pH (7.35-7.45) ABG pCO2 (35-45) mmHg ABG Lactic Acid (0.5-1.6) mmol/L Potassium (3.5-5.1) mmol/L Chloride (98-107) mmol/L Carbon Dioxide (22-30) mmol/L BUN (7-17) mg/dL Creatinine (0.52-1.04) mg/dL Glucose (74-99) mg/dL POC Glucose (mg/dL) 215 H 138 H (70-110) mg/dL Calcium (8.4-10.2) mg/dL Phosphorus (2.5-4.5) mg/dL Magnesium (1.6-2.3) mg/dL AST (14-36) U/L ALT (4-34) U/L Total Protein (6.3-8.2) g/dL Albumin (3.5-5.0) g/dL 02/15/23 02/15/23 02/15/23 Range/Units 03:45 03:46 04:10 WBC (3.8-10.6) k/uL RBC (3.80-5.40) m/uL Hgb (11.4-16.0) gm/dL Hct (34.0-46.0) % Plt Count (150-450) k/uL Neutrophils # (1.3-7.7) k/uL ABG pH (7.35-7.45) ABG pCO2 (35-45) mmHg ABG Lactic Acid 2.3 H* (0.5-1.6) mmol/L Potassium (3.5-5.1) mmol/L Chloride 108 H (98-107) mmol/L Carbon Dioxide (22-30) mmol/L BUN 38 H (7-17) mg/dL Creatinine 3.04 H (0.52-1.04) mg/dL Glucose 130 H (74-99) mg/dL POC Glucose (mg/dL) 138 H (70-110) mg/dL Calcium 7.1 L (8.4-10.2) mg/dL Phosphorus 6.1 H (2.5-4.5) mg/dL Magnesium 1.5 L (1.6-2.3) mg/dL AST 289 H (14-36) U/L ALT 251 H (4-34) U/L Total Protein 5.0 L (6.3-8.2) g/dL Albumin 2.5 L (3.5-5.0) g/dL 02/15/23 02/15/23 02/15/23 Range/Units 04:59 06:00 06:01 WBC (3.8-10.6) k/uL RBC (3.80-5.40) m/uL Hgb (11.4-16.0) gm/dL Hct (34.0-46.0) % Plt Count (150-450) k/uL Neutrophils # (1.3-7.7) k/uL ABG pH 7.32 L (7.35-7.45) ABG pCO2 (35-45) mmHg ABG Lactic Acid (0.5-1.6) mmol/L Potassium (3.5-5.1) mmol/L Chloride (98-107) mmol/L Carbon Dioxide (22-30) mmol/L BUN (7-17) mg/dL Creatinine (0.52-1.04) mg/dL Glucose (74-99) mg/dL POC Glucose (mg/dL) 120 H 116 H (70-110) mg/dL Calcium (8.4-10.2) mg/dL Phosphorus (2.5-4.5) mg/dL Magnesium (1.6-2.3) mg/dL AST (14-36) U/L ALT (4-34) U/L Total Protein (6.3-8.2) g/dL Albumin (3.5-5.0) g/dL 02/15/23 02/15/23 02/15/23 Range/Units 06:52 10:27 11:30 WBC (3.8-10.6) k/uL RBC (3.80-5.40) m/uL Hgb (11.4-16.0) gm/dL Hct (34.0-46.0) % Plt Count (150-450) k/uL Neutrophils # (1.3-7.7) k/uL ABG pH (7.35-7.45) ABG pCO2 (35-45) mmHg ABG Lactic Acid (0.5-1.6) mmol/L Potassium (3.5-5.1) mmol/L Chloride (98-107) mmol/L Carbon Dioxide (22-30) mmol/L BUN (7-17) mg/dL Creatinine (0.52-1.04) mg/dL Glucose (74-99) mg/dL POC Glucose (mg/dL) 119 H 186 H 165 H (70-110) mg/dL Calcium (8.4-10.2) mg/dL Phosphorus (2.5-4.5) mg/dL Magnesium (1.6-2.3) mg/dL AST (14-36) U/L ALT (4-34) U/L Total Protein (6.3-8.2) g/dL Albumin (3.5-5.0) g/dL Microbiology - Last 24 Hours (Table) 02/14/23 04:59 Gram Stain - Preliminary Sputum Assessment and Plan Assessment: 1. Cardiac arrest; patient had prolonged CPR and presented with severe acidosis; intubated and mechanically ventilated at this time -Suit Maker service on board; recommending to continue with ventilator support 2. Acute ST elevation [place]; EKG changes consistent with inferolateral EKG changes; patient has history of coronary artery disease and is s/p CABG 20 years ago - Cardiology on board; given prolonged CPR, patient is deemed not a candidate f or acute coronary angiography; echocardiogram is ordered and pending -- Cardiology recommending supportive care; patient has been placed on heparin cautiously, given left facial hematoma 3. Acute renal failure with anuria; likely ATN secondary to prolonged CPR and hypotension 4. Facial hematoma; no acute fracture; supportive care DVT prophylaxis; SCDs/IV heparin CODE STATUS; full code
[2023-02-15] MEDS ORDERED: ACETAMINOPHEN TAB 325 MG TAB PO PRN (16:09)
[2023-02-15] MEDS: SODIUM CHLORIDE 0.9% 1,000 ML IV SCH (16:15)
[2023-02-15 17:55] LABS: Glucose,Whole Blood 145 mg/dL (70-110)
--- NOTE | 2023-02-15 21:07 | OP ---
OPERATIVE REPORT DATE OF SERVICE : PREOPERATIVE DIAGNOSIS: Acute chronic failure. POSTOPERATIVE DIAGNOSIS: Acute chronic failure. PROCEDURE PERFORMED: Ultrasound-guided dialysis catheter, right femoral approach. DESCRIPTION OF PROCEDURE: The patient was seen in the intensive care unit. Right groin was prepped and drapes applied in a sterile manner. 1% lidocaine infiltrated into the groin area. Ultrasound- guided micropuncture was introduced into the right femoral vein. Micropuncture guidewire was passed and then we passed a regular guidewire, then we placed the dilator, then placed a dialysis catheter. The guidewire was removed. Flushed with heparin saline and hep-locked, secured with 3-0 nylon. The patient tolerated the procedure well. MMODL / IJN: [id number] /
[2023-02-15 21:51] LABS: Glucose,Whole Blood 153 mg/dL (70-110)
[2023-02-15] MEDS ORDERED: DEXTROSE 5% IN WATER 100 ML with AMIODARONE 150 MG IV ONE (22:00)
[2023-02-15] MEDS ORDERED: AMIODARONE 360 MG in DEXTROSE 5% IN WATER 200 ML IV ONE ×2 (22:30)
[2023-02-15 22:41] LABS: Potassium 5.4 mmol/L (3.5-5.1)
[2023-02-15 22:43] LABS: ALT 205 U/L (4-34); AST 251 U/L (14-36); African American GFR (CKD) 11 (>60 ml/min/1.73 sqM); Albumin 2.9 g/dL (3.5-5.0); Alkaline Phosphatase 141 U/L (38-126); Anion Gap 13 mmol/L; Blood Urea Nitrogen 50 mg/dL (7-17); Calcium 7.1 mg/dL (8.4-10.2); Carbon Dioxide 21 mmol/L (22-30); Chloride 104 mmol/L (98-107); Glucose 132 mg/dL (74-99); Non-African American GFR(CKD) 9 (>60 ml/min/1.73 sqM); Sodium 138 mmol/L (137-145); Total Bilirubin 1.2 mg/dL (0.2-1.3); Total Protein 5.8 g/dL (6.3-8.2)
[2023-02-16] MEDS: MAGNESIUM SULFATE-D5W PMX 1 GM in DEXTROSE/WATER 1 100ML.BAG IVPB SCH ×2 (00:10→01:01)
[2023-02-16 00:15] LABS: Glucose,Whole Blood 183 mg/dL (70-110)
[2023-02-16] MEDS: VASOPRESSIN 60 UNIT in SODIUM CHLORIDE 0.9% 150 ML IV SCH ×2 (00:15→23:50)
[2023-02-16] MEDS: ARTIFICIAL TEARS-HYPROMELLOSE DROPS 15 ML BTL BOTH EYES SCH ×2 (00:15→03:44)
[2023-02-16] MEDS: INSULIN ASPART (NovoLOG) 100 UNIT/ML VIAL SQ SCH ×4 (00:18→17:12)
[2023-02-16] MEDS: IPRATROPIUM-ALBUTEROL 3 ML NEB INHALATION SCH ×6 (00:27→20:29)
[2023-02-16] MEDS: AMIODARONE 450 MG in DEXTROSE 5% IN WATER 250 ML IV SCH ×4 (02:55→21:30)
[2023-02-16 05:02] LABS: ALT 179 U/L (4-34); AST 212 U/L (14-36); African American GFR (CKD) 10 (>60 ml/min/1.73 sqM); Albumin 2.7 g/dL (3.5-5.0); Alkaline Phosphatase 122 U/L (38-126); Blood Urea Nitrogen 50 mg/dL (7-17); Carbon Dioxide 20 mmol/L (22-30); Chloride 104 mmol/L (98-107); Glucose 187 mg/dL (74-99); Magnesium 2.3 mg/dL (1.6-2.3); Non-African American GFR(CKD) 9 (>60 ml/min/1.73 sqM); Total Bilirubin 1.3 mg/dL (0.2-1.3); Total Protein 5.3 g/dL (6.3-8.2)
[2023-02-16 05:10] LABS: Anion Gap 12 mmol/L; Potassium 4.8 mmol/L (3.5-5.1); Sodium 136 mmol/L (137-145)
[2023-02-16 05:14] LABS: ABG Base Excess -3.6 mmol/L; ABG HCO3 21 mmol/L (21-25); ABG PCO2 33 mmHg (35-45); ABG PH 7.42 (7.35-7.45); ABG PO2 122 mmHg (83-108); ABG TCO2 22 mmol/L (19-24); Allen Test Performed? Yes
[2023-02-16 05:17] LABS: Basophils % (A) 0 %; Eosinophils % (A) 0 %; HCT 26.7 % (34.0-46.0); HGB 9.1 gm/dL (11.4-16.0); Lymphocytes # (A) 1.3 k/uL (1.0-4.8); Lymphocytes % (A) 4 %; MCH 31.1 pg (25.0-35.0); MCHC 34.3 g/dL (31.0-37.0); MCV 90.7 fL (80.0-100.0); Mean Platelet Volume 10.9; Monocytes # (A) 0.6 k/uL (0-1.0); Monocytes % (A) 2 %; Neutrophils # (A) 28.4 k/uL (1.3-7.7); Neutrophils % (A) 93 %; RBC 2.94 m/uL (3.80-5.40); RDW 15.6 % (11.5-15.5); WBC 30.5 k/uL (3.8-10.6)
[2023-02-16 05:32] LABS: Glucose,Whole Blood 184 mg/dL (70-110)
[2023-02-16 06:40] LABS: Anisocytosis (M) Present
[2023-02-16 06:49] LABS: Platelet Count 96 k/uL (150-450)
--- NOTE | 2023-02-16 07:05 | P.PN ---
Subjective Progress Note Date: 02/16/23 77-year-old female with history of CAD, status post CABG over 20 years ago who presented with cardiac arrest. The history is obtained from the records and the family. According to the son he came back home and found his mother on the floor, very weak dyspneic and shortly after had cardiac arrest. EMS started CPR that lasted for about 30 minutes requiring cardioversion 2. She was intubated. In the emergency room initially she was in atrial fibrillation and subsequently went back to sinus mechanism. The initial rhythm on the field according to the records was asystole. Patient had a large hematoma on the left side of the face. According to the family she has been doing well recently without any symptoms of angina pectoris nor congestive heart failure but she does not follow-up with cardiology on a regular basis. She had a triple bypass according to them, full detail of her intervention are not available. Her surgery was done at [facility]. The records are not available. No other history is available at this time. The patient is intubated, in sinus mechanism, has no urinary output and is requiring vasopressin and norepinephrine. She was severely acidotic on presentation. -- Patient was intubated and is admitted to ICU; intensive care and cardiology service is on board 02/16/2023 Patient is seen and evaluated in ICU; remains intubated and mechanically ventilated Vital signs are reviewed; blood pressure 111/73 O2 saturation 98% Patient had cardiopulmonary arrest with prolonged down time; normoactive intervention from cardiology - Neurology on board for concern about anoxic brain injury due to prolonged cardiopulmonary arrest; EEG is ordered; urology planning to repeat CT of the head; ammonia level is ordered and pending - Patient is maintained on ventilator support with potter or ceramic artist service following; patient has been placed on enteral feeding for nutritional support -- Remains on IV Zosyn for concern about aspiration pneumonia Objective - Vital Signs Vital signs: Vital Signs Temp 99.4 F 02/16/23 00:00 Pulse 95 02/16/23 01:00 Resp 28 H 02/16/23 01:00 BP 142/91 02/16/23 00:45 Pulse Ox 97 02/16/23 01:00 FiO2 50 02/16/23 00:26 Intake & Output 02/15/23 02/15/23 02/16/23 06:59 18:59 06:59 Intake Total 9964.475 2100.522 1387.087 Output Total 58 0 90 Balance 3574.714 1167.522 1297.087 Weight 94.5 kg 94.5 kg Intake: IV 220 510 650 .9 @ KVO 220 160 Magnesium Sulfate-D5w Pmx 100 200 1 gm In Dextrose/Water 1 100ml.bag @ 100 mls/hr IVPB ONCE ONE Rx#: [id number] Piperacillin-Tazobactam 3 100 100 .375 gm In Sodium Chloride 0.9% 100 ml @ 25 mls/hr IVPB Q12HR [facility] Rx #:[id number] Sodium Chloride 0.9% 1, 150 350 000 ml @ 50 mls/hr IV . Q20H [facility] Rx#:[id number] Intake, IV Titration 1038.036 708.522 147.087 Amount Cisatracurium 200 mg In 135.448 Sodium Chloride 0.9% 180 ml @ 1 MCG/KG/MIN 5.506 mls/hr IV .Q24H [facility] Rx#: [id number] EPINEPHrine 4 mg In 493.284 284.002 Dextrose 5% in Water 250 ml @ 0.03 MCG/KG/MIN 10. 323 mls/hr IV .Q24H [facility] Rx#:[id number] Insulin Regular 100 unit 56.310 In Sodium Chloride 0.9% 100 ml @ Titrate IV .Q0M [facility] Rx#:[id number] Norepinephrine 32 mg In 74.460 42.939 Sodium Chloride 0.9% 218 ml @ 0.03 MCG/KG/MIN 1. 329 mls/hr IV .Q24H [facility] Rx#:[id number] Vasopressin 60 unit In 138.388 14.612 3.392 Sodium Chloride 0.9% 150 ml @ 0.04 UNITS/MIN 6.12 mls/hr IV .Q24H [facility] Rx#: [id number] propofoL 1,000 mg In 350.054 200.000 100.756 Empty Bag 1 bag @ 15 MCG/ KG/MIN 8.259 mls/hr IV . Q12H7M [facility] Rx#:[id number] Tube Feeding 60 130 Hemodialysis 400 Other 60 60 Output: Gastric Drainage 50 Urine 8 0 45 Hemodialysis 45 Other: Voiding Method Indwelling Catheter Indwelling Catheter ABP, PAP, CO, CI - Last Documented Arterial Blood Pressure 107/53 - Labs CBC & Chem 7: 02/15/23 03:45 02/15/23 20:57 Labs: Abnormal Lab Results - Last 24 Hours (Table) 02/15/23 02/15/23 02/15/23 Range/Units 03:45 03:45 03:46 WBC 27.7 H (3.8-10.6) k/uL RBC 3.20 L (3.80-5.40) m/uL Hgb 9.8 L D (11.4-16.0) gm/dL Hct 30.0 L (34.0-46.0) % Plt Count 115 L (150-450) k/uL Neutrophils # 25.1 H (1.3-7.7) k/uL ABG pH (7.35-7.45) ABG Lactic Acid (0.5-1.6) mmol/L Potassium (3.5-5.1) mmol/L Chloride 108 H (98-107) mmol/L Carbon Dioxide (22-30) mmol/L BUN 38 H (7-17) mg/dL Creatinine 3.04 H (0.52-1.04) mg/dL Glucose 130 H (74-99) mg/dL POC Glucose (mg/dL) 138 H (70-110) mg/dL Calcium 7.1 L (8.4-10.2) mg/dL Phosphorus 6.1 H (2.5-4.5) mg/dL Magnesium 1.5 L (1.6-2.3) mg/dL AST 289 H (14-36) U/L ALT 251 H (4-34) U/L Alkaline Phosphatase (38-126) U/L Total Protein 5.0 L (6.3-8.2) g/dL Albumin 2.5 L (3.5-5.0) g/dL 02/15/23 02/15/23 02/15/23 Range/Units 04:10 04:59 06:00 WBC (3.8-10.6) k/uL RBC (3.80-5.40) m/uL Hgb (11.4-16.0) gm/dL Hct (34.0-46.0) % Plt Count (150-450) k/uL Neutrophils # (1.3-7.7) k/uL ABG pH 7.32 L (7.35-7.45) ABG Lactic Acid 2.3 H* (0.5-1.6) mmol/L Potassium (3.5-5.1) mmol/L Chloride (98-107) mmol/L Carbon Dioxide (22-30) mmol/L BUN (7-17) mg/dL Creatinine (0.52-1.04) mg/dL Glucose (74-99) mg/dL POC Glucose (mg/dL) 120 H (70-110) mg/dL Calcium (8.4-10.2) mg/dL Phosphorus (2.5-4.5) mg/dL Magnesium (1.6-2.3) mg/dL AST (14-36) U/L ALT (4-34) U/L Alkaline Phosphatase (38-126) U/L Total Protein (6.3-8.2) g/dL Albumin (3.5-5.0) g/dL 02/15/23 02/15/23 02/15/23 Range/Units 06:01 06:52 10:27 WBC (3.8-10.6) k/uL RBC (3.80-5.40) m/uL Hgb (11.4-16.0) gm/dL Hct (34.0-46.0) % Plt Count (150-450) k/uL Neutrophils # (1.3-7.7) k/uL ABG pH (7.35-7.45) ABG Lactic Acid (0.5-1.6) mmol/L Potassium (3.5-5.1) mmol/L Chloride (98-107) mmol/L Carbon Dioxide (22-30) mmol/L BUN (7-17) mg/dL Creatinine (0.52-1.04) mg/dL Glucose (74-99) mg/dL POC Glucose (mg/dL) 116 H 119 H 186 H (70-110) mg/dL Calcium (8.4-10.2) mg/dL Phosphorus (2.5-4.5) mg/dL Magnesium (1.6-2.3) mg/dL AST (14-36) U/L ALT (4-34) U/L Alkaline Phosphatase (38-126) U/L Total Protein (6.3-8.2) g/dL Albumin (3.5-5.0) g/dL 02/15/23 02/15/23 02/15/23 Range/Units 11:30 17:53 20:57 WBC (3.8-10.6) k/uL RBC (3.80-5.40) m/uL Hgb (11.4-16.0) gm/dL Hct (34.0-46.0) % Plt Count (150-450) k/uL Neutrophils # (1.3-7.7) k/uL ABG pH (7.35-7.45) ABG Lactic Acid (0.5-1.6) mmol/L Potassium 5.4 H (3.5-5.1) mmol/L Chloride (98-107) mmol/L Carbon Dioxide 21 L (22-30) mmol/L BUN 50 H (7-17) mg/dL Creatinine 4.36 H (0.52-1.04) mg/dL Glucose 132 H (74-99) mg/dL POC Glucose (mg/dL) 165 H 145 H (70-110) mg/dL Calcium 7.1 L (8.4-10.2) mg/dL Phosphorus (2.5-4.5) mg/dL Magnesium (1.6-2.3) mg/dL AST 251 H (14-36) U/L ALT 205 H (4-34) U/L Alkaline Phosphatase 141 H (38-126) U/L Total Protein 5.8 L (6.3-8.2) g/dL Albumin 2.9 L (3.5-5.0) g/dL 02/15/23 02/16/23 Range/Units 21:50 00:13 WBC (3.8-10.6) k/uL RBC (3.80-5.40) m/uL Hgb (11.4-16.0) gm/dL Hct (34.0-46.0) % Plt Count (150-450) k/uL Neutrophils # (1.3-7.7) k/uL ABG pH (7.35-7.45) ABG Lactic Acid (0.5-1.6) mmol/L Potassium (3.5-5.1) mmol/L Chloride (98-107) mmol/L Carbon Dioxide (22-30) mmol/L BUN (7-17) mg/dL Creatinine (0.52-1.04) mg/dL Glucose (74-99) mg/dL POC Glucose (mg/dL) 153 H 183 H (70-110) mg/dL Calcium (8.4-10.2) mg/dL Phosphorus (2.5-4.5) mg/dL Magnesium (1.6-2.3) mg/dL AST (14-36) U/L ALT (4-34) U/L Alkaline Phosphatase (38-126) U/L Total Protein (6.3-8.2) g/dL Albumin (3.5-5.0) g/dL Microbiology - Last 24 Hours (Table) 02/14/23 04:59 Gram Stain - Preliminary Sputum Assessment and Plan Assessment: 1. Cardiac arrest; patient had prolonged CPR and presented with severe acidosis; intubated and mechanically ventilated at this time -Nursery Hand service on board; recommending to continue with ventilator support 2. Acute ST elevation [place]; EKG changes consistent with inferolateral EKG changes; patient has history of coronary artery disease and is s/p CABG 20 years ago - Cardiology on board; given prolonged CPR, patient is deemed not a candidate for acute coronary angiography; echocardiogram is ordered and pending -- Cardiology recommending supportive care; patient has been placed on heparin cautiously, given left facial hematoma 3. Acute renal failure with anuria; likely ATN secondary to prolonged CPR and hypotension 4. Facial hematoma; no acute fracture; supportive care DVT prophylaxis; SCDs/IV heparin CODE STATUS; full code
[2023-02-16] MEDS: CHLORHEXIDINE GLUCONATE 15 ML CUP MUCOUS MEM SCH ×2 (08:29→20:57)
[2023-02-16] MEDS: DEXAMETHASONE SOD PHOSPHATE 10 MG/ML 1 ML VIAL IVP SCH ×2 (08:29→20:57)
[2023-02-16] MEDS: PANTOPRAZOLE 40 MG/10 ML VIAL IVP SCH (08:29)
[2023-02-16] MEDS: PIPERACILLIN-TAZOBACTAM 3.375 GM in SODIUM CHLORIDE 0.9% 100 ML IVPB SCH ×2 (08:29→21:14)
--- NOTE | 2023-02-16 09:22 | XR ---
EXAMINATION TYPE: XR chest 1V portable DATE OF EXAM: 02/16/2023 Comparison: 02/15/2023 Clinical History: 77-year-old female Tube placement Findings: ET tube tip at the level of the medial clavicular heads. NG tube courses below the diaphragm. Median sternotomy wires and post-CABG clips. Heart border line enlarged. Left lung opacities have significan tly improved from prior. Residual patchy densities remain. Calcified granuloma right base. Impression: Significantly improving aeration throughout the left lung. Residual patchy densities remain.
--- NOTE | 2023-02-16 10:44 | P.PN ---
Subjective Patient is seen in follow-up for acute kidney injury. Patient did not tolerate hemodialysis well yesterday. Patient's blood pressure dropped and heart rate elevated. Therefore dialysis was discontinued. Potassium this morning is 4.8. Remains oliguric. Receiving tube feeds. Undergoing EEG. On Levophed and vasopressin. Also on amiodarone drip. Vital signs are stable. On vasopressor support. General: Resting in bed. HEENT: Intubated. LUNGS: Scattered rhonchi. HEART: Rate and Rhythm are regular. ABDOMEN: No distention. EXTREMITITES: No edema. Objective - Vital Signs Vital signs: Vital Signs Temp 98.9 F 02/16/23 08:00 Pulse 74 02/16/23 08:45 Resp 5 L 02/16/23 08:45 BP 128/60 02/16/23 08:45 Pulse Ox 98 02/16/23 08:45 FiO2 50 02/16/23 09:38 Intake & Output 02/15/23 02/16/23 02/16/23 18:59 06:59 18:59 Intake Total 6523.625 6998.948 371.752 Output Total 0 100 0 Balance 5129.024 5534.948 371.752 Weight 94.5 kg Intake: IV 510 900 100 .9 @ KVO 160 Magnesium Sulfate-D5w Pmx 100 200 1 gm In Dextrose/Water 1 100ml.bag @ 100 mls/hr IVPB ONCE ONE Rx#: [id number] Piperacillin-Tazobactam 3 100 100 .375 gm In Sodium Chloride 0.9% 100 ml @ 25 mls/hr IVPB Q12HR [facility] Rx #:[id number] Sodium Chloride 0.9% 1, 150 600 100 000 ml @ 50 mls/hr IV . Q20H [facility] Rx#:[id number] Intake, IV Titration 708.522 288.948 223.752 Amount Cisatracurium 200 mg In 135.448 Sodium Chloride 0.9% 180 ml @ 1 MCG/KG/MIN 5.506 mls/hr IV .Q24H [facility] Rx#: [id number] EPINEPHrine 4 mg In 284.002 Dextrose 5% in Water 250 ml @ 0.03 MCG/KG/MIN 10. 323 mls/hr IV .Q24H [facility] Rx#:[id number] Norepinephrine 32 mg In 74.460 88.689 26.208 Sodium Chloride 0.9% 218 ml @ 0.03 MCG/KG/MIN 1. 329 mls/hr IV .Q24H [facility] Rx#:[id number] Piperacillin-Tazobactam 3 100 .375 gm In Sodium Chloride 0.9% 100 ml @ 25 mls/hr IVPB Q12HR [facility] Rx #:[id number] Vasopressin 60 unit In 14.612 4.871 Sodium Chloride 0.9% 150 ml @ 0.04 UNITS/MIN 6.12 mls/hr IV .Q24H [facility] Rx#: [id number] propofoL 1,000 mg In 200.000 195.388 97.544 Empty Bag 1 bag @ 15 MCG/ KG/MIN 8.259 mls/hr IV . Q12H7M [facility] Rx#:[id number] Tube Feeding 60 230 48 Hemodialysis 400 Other 60 90 Output: Urine 0 55 0 Hemodialysis 45 Other: Voiding Method Indwelling Catheter Indwelling Catheter Indwelling Catheter ABP, PAP, CO, CI - Last Documented Arterial Blood Pressure 104/58 - Labs CBC & Chem 7: 02/16/23 04:40 02/16/23 04:40 Labs: Abnormal Lab Results - Last 24 Hours (Table) 02/15/23 02/15/23 02/15/23 Range/Units 11:30 17:53 20:57 WBC (3.8-10.6) k/uL RBC (3.80-5.40) m/uL Hgb (11.4-16.0) gm/dL Hct (34.0-46.0) % RDW (11.5-15.5) % Plt Count (150-450) k/uL Neutrophils # (1.3-7.7) k/uL ABG pCO2 (35-45) mmHg ABG pO2 (83-108) mmHg ABG O2 Saturation (94-97) % Sodium (137-145) mmol/L Potassium 5.4 H (3.5-5.1) mmol/L Carbon Dioxide 21 L (22-30) mmol/L BUN 50 H (7-17) mg/dL Creatinine 4.36 H (0.52-1.04) mg/dL Glucose 132 H (74-99) mg/dL POC Glucose (mg/dL) 165 H 145 H (70-110) mg/dL Calcium 7.1 L (8.4-10.2) mg/dL AST 251 H (14-36) U/L ALT 205 H (4-34) U/L Alkaline Phosphatase 141 H (38-126) U/L Total Protein 5.8 L (6.3-8.2) g/dL Albumin 2.9 L (3.5-5.0) g/dL 02/15/23 02/16/23 02/16/23 Range/Units 21:50 00:13 04:40 WBC 30.5 H (3.8-10.6) k/uL RBC 2.94 L (3.80-5.40) m/uL Hgb 9.1 L (11.4-16.0) gm/dL Hct 26.7 L (34.0-46.0) % RDW 15.6 H (11.5-15.5) % Plt Count 96 L (150-450) k/uL Neutrophils # 28.4 H (1.3-7.7) k/uL ABG pCO2 (35-45) mmHg ABG pO2 (83-108) mmHg ABG O2 Saturation (94-97) % Sodium (137-145) mmol/L Potassium (3.5-5.1) mmol/L Carbon Dioxide (22-30) mmol/L BUN (7-17) mg/dL Creatinine (0.52-1.04) mg/dL Glucose (74-99) mg/dL POC Glucose (mg/dL) 153 H 183 H (70-110) mg/dL Calcium (8.4-10.2) mg/dL AST (14-36) U/L ALT (4-34) U/L Alkaline Phosphatase (38-126) U/L Total Protein (6.3-8.2) g/dL Albumin (3.5-5.0) g/dL 02/16/23 02/16/23 02/16/23 Range/Units 04:40 05:10 05:31 WBC (3.8-10.6) k/uL RBC (3.80-5.40) m/uL Hgb (11.4-16.0) gm/dL Hct (34.0-46.0) % RDW (11.5-15.5) % Plt Count (150-450) k/uL Neutrophils # (1.3-7.7) k/uL ABG pCO2 33 L (35-45) mmHg ABG pO2 122 H (83-108) mmHg ABG O2 Saturation 99.0 H (94-97) % Sodium 136 L (137-145) mmol/L Potassium (3.5-5.1) mmol/L Carbon Dioxide 20 L (22-30) mmol/L BUN 50 H (7-17) mg/dL Creatinine 4.54 H (0.52-1.04) mg/dL Glucose 187 H (74-99) mg/dL POC Glucose (mg/dL) 184 H (70-110) mg/dL Calcium 7.0 L (8.4-10.2) mg/dL AST 212 H (14-36) U/L ALT 179 H (4-34) U/L Alkaline Phosphatase (38-126) U/L Total Protein 5.3 L (6.3-8.2) g/dL Albumin 2.7 L (3.5-5.0) g/dL Microbiology - Last 24 Hours (Table) 02/14/23 04:59 Gram Stain - Preliminary Sputum Assessment and Plan Plan: Assessment: 1. Acute kidney injury secondary to ATN secondary to cardiac arrest. Creatinine 1.42 admission and up to 4.54 today. Oliguric. No hydronephrosis noted on kidney ultrasound. Kidney cysts noted. 2. Metabolic acidosis secondary to acute kidney injury and lactic acidosis. Improved. ABG from this morning suggestive of respiratory alkalosis. 3. Status post cardiac arrest. 4. Acute ST elevated myocardial infarction. Etiology following. Status post heparin drip. 5. History of coronary disease status post CABG. 6. Facial hematoma secondary to fall. 7. Hyperphosphatemia secondary to acute kidney injury. 8. Hypomagnesemia from poor intake. Replaced. Improved. 9. Concern for anoxic brain injury. Neurology following. 10. A. fib with RVR maintained on amiodarone drip. Plan: Gentle IV hydration. Maintain tube feeds. Status post IV Lasix given 02/15/2023 with no response and urine output. Add PhosLo. Wean FiO2 and vasopressors. Attempted hemodialysis 02/15/2023 but patient did not tolerate the treatment and it was stopped. Hold off on dialysis at this time until further decisions made by the family regarding goals of care. Repeat BMP this evening to monitor potassium level closely. Prognosis guarded.
[2023-02-16 11:12] LABS: Hepatitis B Surface AB- Quant 3.5 mIU/mL; Hepatitis B Surface Antigen Nonreactive
[2023-02-16] MEDS: CALCIUM ACETATE 667 MG TAB PO SCH ×2 (12:18→16:58)
[2023-02-16] MEDS: NOREPINEPHRINE 32 MG in SODIUM CHLORIDE 0.9% 218 ML IV SCH (12:18)
[2023-02-16] MEDS: SODIUM CHLORIDE 0.9% 1,000 ML IV SCH (12:21)
--- NOTE | 2023-02-16 12:21 | P.PN ---
Subjective Progress Note Date: 02/16/23 Principal diagnosis: Cardiopulmonary arrest This is a 77-year-old -[place] female known history of coronary artery disease and previous CABG over 20 years ago. Patient sustained a sudden cardiac arrest yesterday, Found His Mother on the Floor, this was apparently a witnessed collapse, patient sustained some laceration and hematoma over the left periorbital area requiring steri trips placed by the ER physician. EMS performed CPR for about 30 minutes, and she had cardioversion 2. Patient was intubated, and she was brought into the ER and she was noted upon arrival in atrial fibrillation. Then went back into sinus rhythm, initial rhythm according to EMS was asystole. But clearly from the records patient received at least 11 rounds of epinephrine all in all, and she had to be resuscitated again in the ER at least a couple of times. Patient remained hypotensive and transferred to the ICU and she is now requiring epinephrine at 0.12 mcg/kg/m patient is also requiring vasopressin at 0.04 units per minute patient is on heparin drip as per cardiology she is also on propofol at 50 mcg/kg/m. Patient is intubated and mechanically ventilated she is on assist control rate of 24 tidal volume 450 FiO2 on the percent and PEEP of 5 ABG showed a pO2 of 78 pCO2 46 pH of 7.22 initial her vent settings were adjusted and the patient received 1 amp of bicarb rate increased to 28, and repeat ABG showed a pO2 of 75 pCO2 43 pH of 7.29. Looking at the medications given during her resuscitation patient received 11 A of epinephrine she received 3 A of bicarb and she was defibrillated 2. Hence down time is basically over 60 minutes cardiology felt that the patient had significant anoxic injury, and did not feel that the patient should have cardiac catheterization at this point. Awaiting to determine whether the patient is going to show any signs of neurological recovery. I did see the patient in the ICU, and I discussed her condition with the family, discussed the different options of treatment including the option of continuing full support and keeping the patient full code versus continuing the same but changing the CODE STATUS to DO NOT RESUSCITATE versus comfort care measures and letting the patient passed comfortably peacefully and dignified. Family is yet to decide on different options that where discussed Patient was reevaluated today on 02/15/23, remains in the ICU, intubated and mechanically ventilated. Patient is on assist control rate of 28.450 FiO2 was 80% and I cut it down to 60% PEEP was at 5 and I increased the PEEP up to 10. ABG showed a pO2 of 88 pCO2 43 pH of 7.32. Patient is still requiring multiple pressors including epinephrine at 0.1 for microalbumin per kilo per minute, which is also on vasopressin at 0.04 units per minute. Patient had to be placed on Nimbex yesterday because she was not synchronous with the ventilator, and propofol could not take care of the issue. Is also on propofol at 50 mg/kg/m Nimbex is at 1.5 mg/kg/m. No pattern changer and repairer the last 24 hours, patient must have sustained significant anoxic brain injury, hence neurology was consulted to see the patient today, and considering the patient has hardly any urine output and most likely she developed acute tubular necrosis and kidney injury, I'm recommending nephrology to see the patient today. In the meantime the patient will be started on enteral feeding, we'll continue Zosyn, and continue propofol but discontinue Nimbex. Decadron was added 6 mg IV push every 12 hours. Patient is a sliding scale for her elevated blood sugar, and today I recommended one dose of Lasix 80 mg IV push 1 since the patient is not making much of any urine. WBC count is up today 27.7 hemoglobin is 9.8. Basic metabolic profile is normal, renal profile showed worsening BUN up to 38 creatinine is worsening couple to 3.04 liver enzymes are elevated AST of 289 and ALT of 251. Troponin yesterday was as high as 13, and BNP level is 8610 chest x-ray today showed clear right lung, however significant findings noted on the left lung with consolidation involving the left upper lobe left midlung and left lower lobe. Clearly the patient has patchy airspace disease involving the left lung mostly. It is empirically on Zosyn Patient was reevaluated today on 02/16/23, remains in the ICU intubated and mechanically ventilated, remains on assist control rate of 28th 2450 FiO2 50% PEEP of 10 and PEEP was cut down to 8 after reviewing her ABG pO2 today is 122 pCO2 33 pH of 7.42. Patient is unresponsive to any stimuli, her pupils are fixed and dilated. Patient has negative corneals, she has negative gag reflex, she is in the process of having an EEG, and again her neurological status seems to have gotten worse. Being followed by neurology, CT of the brain was negative initially. EEG is pending patient is on multiple drips including amiodarone 0.5 mg/m, patient went into atrial fibrillation with RVR yesterday when dialysis was started and she tolerated only half an hour of dialysis. She is on norepinephrine at 0.17 vasopressin at 0.04 units per minute vital HP 10 mL per hour IV fluid at 50 mL per hour and propofol at 20 mg/kg/m. Today the patient is back in sinus rhythm, nonetheless she is on amiodarone at 0.5 mg/m. Her WBC count is on the rise WBC is 30.5 hemoglobin is 9.1. Basic metabolic profile is normal bicarb is 20 BUN is 50 creatinine 4.54, liver enzymes are slightly elevated. Again overall the picture is looking worse, and urologically the patient is not showing any signs of improvement. Family is still undecided abou t comfort care measures patient in the meantime remains full code chest x-ray however is showing improvement in her left lung consolidation, significant improvement noted in the last 24 hours Objective - Vital Signs Vital signs: Vital Signs Temp 98.9 F 02/16/23 08:00 Pulse 84 02/16/23 11:56 Resp 0 L 02/16/23 10:30 BP 134/68 02/16/23 10:30 Pulse Ox 99 02/16/23 10:15 FiO2 50 02/16/23 11:37 Intake & Output 02/15/23 02/16/23 02/16/23 18:59 06:59 18:59 Intake Total 1501.133 0502.948 705.752 Output Total 0 100 0 Balance 9516.518 7318.948 705.752 Weight 94.5 kg Intake: IV 510 900 250 .9 @ KVO 160 Magnesium Sulfate-D5w Pmx 100 200 1 gm In Dextrose/Water 1 100ml.bag @ 100 mls/hr IVPB ONCE ONE Rx#: [id number] Piperacillin-Tazobactam 3 100 100 .375 gm In Sodium Chloride 0.9% 100 ml @ 25 mls/hr IVPB Q12HR [facility] Rx #:[id number] Sodium Chloride 0.9% 1, 150 600 250 000 ml @ 50 mls/hr IV . Q20H [facility] Rx#:[id number] Intake, IV Titration 708.522 288.948 323.752 Amount Cisatracurium 200 mg In 135.448 Sodium Chloride 0.9% 180 ml @ 1 MCG/KG/MIN 5.506 mls/hr IV .Q24H [facility] Rx#: [id number] EPINEPHrine 4 mg In 284.002 Dextrose 5% in Water 250 ml @ 0.03 MCG/KG/MIN 10. 323 mls/hr IV .Q24H [facility] Rx#:[id number] Norepinephrine 32 mg In 74.460 88.689 26.208 Sodium Chloride 0.9% 218 ml @ 0.03 MCG/KG/MIN 1. 329 mls/hr IV .Q24H [facility] Rx#:[id number] Piperacillin-Tazobactam 3 200 .375 gm In Sodium Chloride 0.9% 100 ml @ 25 mls/hr IVPB Q12HR [facility] Rx #:[id number] Vasopressin 60 unit In 14.612 4.871 Sodium Chloride 0.9% 150 ml @ 0.04 UNITS/MIN 6.12 mls/hr IV .Q24H [facility] Rx#: [id number] propofoL 1,000 mg In 200.000 195.388 97.544 Empty Bag 1 bag @ 15 MCG/ KG/MIN 8.259 mls/hr IV . Q12H7M [facility] Rx#:[id number] Tube Feeding 60 230 132 Hemodialysis 400 Other 60 90 Output: Urine 0 55 0 Hemodialysis 45 Other: Voiding Method Indwelling Catheter Indwelling Catheter Indwelling Catheter ABP, PAP, CO, CI - Last Documented Arterial Blood Pressure 104/63 - Exam Physical Exam: Revealed a 77-year-old female intubated mechanically ventilated, unresponsive to any stimuli including painful stimuli Head: There is evidence of large periorbital hematoma on the left side HEENT:[Neck is supple.] [No neck masses.] [No thyromegaly.] [No JVD.] Endotracheal tube and orogastric tubes are intact Chest: Symmetrical chest expansion, crackles at the bases left more so than right. Cardiac Exam: Distant S1 and S2, no S3 gallop, 2/6 systolic murmur thought the precordium. Abdomen: [Soft, nontender, no megaly, no rebound, no guarding, normal bowel sounds.] Extremities: [No clubbing, no edema, no cyanosis.] Diminished distal pulses. Neurological Exam: Patient is unresponsive to any stimuli. Pupils are dilated fixed and nonreactive. Negative corneal and negative gag reflex Psychiatric: Could not be assessed. Skin: No rashes. - Labs CBC & Chem 7: 02/16/23 04:40 02/16/23 04:40 Labs: Abnormal Lab Results - Last 24 Hours (Table) 02/15/23 02/15/23 02/15/23 Range/Units 17:53 20:57 21:50 WBC (3.8-10.6) k/uL RBC (3.80-5.40) m/uL Hgb (11.4-16.0) gm/dL Hct (34.0-46.0) % RDW (11.5-15.5) % Plt Count (150-450) k/uL Neutrophils # (1.3-7.7) k/uL ABG pCO2 (35-45) mmHg ABG pO2 (83-108) mmHg ABG O2 Saturation (94-97) % Sodium (137-145) mmol/L Potassium 5.4 H (3.5-5.1) mmol/L Carbon Dioxide 21 L (22-30) mmol/L BUN 50 H (7-17) mg/dL Creatinine 4.36 H (0.52-1.04) mg/dL Glucose 132 H (74-99) mg/dL POC Glucose (mg/dL) 145 H 153 H (70-110) mg/dL Calcium 7.1 L (8.4-10.2) mg/dL AST 251 H (14-36) U/L ALT 205 H (4-34) U/L Alkaline Phosphatase 141 H (38-126) U/L Total Protein 5.8 L (6.3-8.2) g/dL Albumin 2.9 L (3.5-5.0) g/dL 02/16/23 02/16/23 02/16/23 Range/Units 00:13 04:40 04:40 WBC 30.5 H (3.8-10.6) k/uL RBC 2.94 L (3.80-5.40) m/uL Hgb 9.1 L (11.4-16.0) gm/dL Hct 26.7 L (34.0-46.0) % RDW 15.6 H (11.5-15.5) % Plt Count 96 L (150-450) k/uL Neutrophils # 28.4 H (1.3-7.7) k/uL ABG pCO2 (35-45) mmHg ABG pO2 (83-108) mmHg ABG O2 Saturation (94-97) % Sodium 136 L (137-145) mmol/L Potassium (3.5-5.1) mmol/L Carbon Dioxide 20 L (22-30) mmol/L BUN 50 H (7-17) mg/dL Creatinine 4.54 H (0.52-1.04) mg/dL Glucose 187 H (74-99) mg/dL POC Glucose (mg/dL) 183 H (70-110) mg/dL Calcium 7.0 L (8.4-10.2) mg/dL AST 212 H (14-36) U/L ALT 179 H (4-34) U/L Alkaline Phosphatase (38-126) U/L Total Protein 5.3 L (6.3-8.2) g/dL Albumin 2.7 L (3.5-5.0) g/dL 02/16/23 02/16/23 Range/Units 05:10 05:31 WBC (3.8-10.6) k/uL RBC (3.80-5.40) m/uL Hgb (11.4-16.0) gm/dL Hct (34.0-46.0) % RDW (11.5-15.5) % Plt Count (150-450) k/uL Neutrophils # (1.3-7.7) k/uL ABG pCO2 33 L (35-45) mmHg ABG pO2 122 H (83-108) mmHg ABG O2 Saturation 99.0 H (94-97) % Sodium (137-145) mmol/L Potassium (3.5-5.1) mmol/L Carbon Dioxide (22-30) mmol/L BUN (7-17) mg/dL Creatinine (0.52-1.04) mg/dL Glucose (74-99) mg/dL POC Glucose (mg/dL) 184 H (70-110) mg/dL Calcium (8.4-10.2) mg/dL AST (14-36) U/L ALT (4-34) U/L Alkaline Phosphatase (38-126) U/L Total Protein (6.3-8.2) g/dL Albumin (3.5-5.0) g/dL Microbiology - Last 24 Hours (Table) 02/14/23 04:59 Gram Stain - Final Sputum Sputum Culture - Final Assessment and Plan Assessment: Impression: Acute hypoxic and hypercapnic respiratory failure secondary to cardiac arrest Prolonged CPR and severe metabolic and respiratory acidosis Acute ST elevation myocardial infarction with inferior lateral wall EKG changes Severe anoxic encephalopathy and anoxic brain injury, neurologically the patient seems to be getting worse. Acute kidney injury/acute tubular necrosis secondary to prolonged CPR and hypotension patient did not tolerate more than half hour of hemodialysis Left facial hematoma secondary to fall/trauma History of coronary artery disease and previous CABG over 20 years ago. History of benign essential hypertension History of obstructive sleep apnea syndrome Hypotension requiring pressors/cardiogenic in nature. New-onset atrial fibrillation, resolved patient is on amiodarone, this developed while the patient was undergoing hemodialysis. Recommendation: Continue ventilatory support Continue hemodynamic support however will transition epinephrine to norepinephrine/levo Family needs to be approached again regarding comfort care measures especially with the new neurological findings and worsening neurological status. Awaiting EEG results. Skaff condition with neurology on the case. Feels the same that her prognosis is extremely poor, and doubt any chance of neurological recovery. Continue nutritional support/enteral feeding Cardiology is addressing her cardiac arrest and her atrial fibrillation GI prophylaxis Zosyn for presumptive aspiration pneumonia, chest x-ray showed dramatic improvement in the left sided consolidation Nephrology we'll address hemodialysis again today possibly Sharon will be updated on her overall worsening neurological picture and we'll recommend again comfort care measures Patient is critically ill Critical care time is over 30 minutes Time with Patient: Greater than 30
[2023-02-16 12:25] LABS: Glucose,Whole Blood 205 mg/dL (70-110)
--- NOTE | 2023-02-16 13:09 | P.PN ---
Subjective Progress Note Date: 02/16/23 I am following-up with patient and per ICU nurse her IV Propofol was held for about two hours. She was on IV Propofol 50mcg/kg/min. The IV Nimbex has been held since yesterday A.M. Yesterday patient went into A[employer] run while getting dialysis per nurse. Today she has dilated nonreactive pupils per nurse. Objective - Vital Signs Vital signs: Vital Signs Temp 98.9 F 02/16/23 08:00 Pulse 84 02/16/23 11:56 Resp 0 L 02/16/23 10:30 BP 134/68 02/16/23 10:30 Pulse Ox 99 02/16/23 10:15 FiO2 55 02/16/23 12:00 Intake & Output 02/15/23 02/16/23 02/16/23 18:59 06:59 18:59 Intake Total 1390.867 1177.948 729.969 Output Total 0 100 0 Balance 4578.290 5145.948 729.969 Weight 94.5 kg Intake: IV 510 900 250 .9 @ KVO 160 Magnesium Sulfate-D5w Pmx 100 200 1 gm In Dextrose/Water 1 100ml.bag @ 100 mls/hr IVPB ONCE ONE Rx#: [id number] Piperacillin-Tazobactam 3 100 100 .375 gm In Sodium Chloride 0.9% 100 ml @ 25 mls/hr IVPB Q12HR [facility] Rx #:[id number] Sodium Chloride 0.9% 1, 150 600 250 000 ml @ 50 mls/hr IV . Q20H [facility] Rx#:[id number] Intake, IV Titration 708.522 288.948 347.969 Amount Cisatracurium 200 mg In 135.448 Sodium Chloride 0.9% 180 ml @ 1 MCG/KG/MIN 5.506 mls/hr IV .Q24H [facility] Rx#: [id number] EPINEPHrine 4 mg In 284.002 Dextrose 5% in Water 250 ml @ 0.03 MCG/KG/MIN 10. 323 mls/hr IV .Q24H [facility] Rx#:[id number] Norepinephrine 32 mg In 74.460 88.689 50.425 Sodium Chloride 0.9% 218 ml @ 0.03 MCG/KG/MIN 1. 329 mls/hr IV .Q24H [facility] Rx#:[id number] Piperacillin-Tazobactam 3 200 .375 gm In Sodium Chloride 0.9% 100 ml @ 25 mls/hr IVPB Q12HR [facility] Rx #:[id number] Vasopressin 60 unit In 14.612 4.871 Sodium Chloride 0.9% 150 ml @ 0.04 UNITS/MIN 6.12 mls/hr IV .Q24H [facility] Rx#: [id number] propofoL 1,000 mg In 200.000 195.388 97.544 Empty Bag 1 bag @ 15 MCG/ KG/MIN 8.259 mls/hr IV . Q12H7M [facility] Rx#:[id number] Tube Feeding 60 230 132 Hemodialysis 400 Other 60 90 Output: Urine 0 55 0 Hemodialysis 45 Other: Voiding Method Indwelling Catheter Indwelling Catheter Indwelling Catheter ABP, PAP, CO, CI - Last Documented Arterial Blood Pressure 104/63 - Exam General: Lying in bed and does not appear in acute distress. HENT: Hematoma over the left periorbital and has tape over left eye Respiratory: Intubated on ventilator. Neuro: Limited. IV Propofol of 50mg/kg/min is held for 2 hour prior to examination. IV Nimbex has been held since yesterday A.M. Is comatose. GCS 3 (E1, VT1, M1). I had to manually open eyes and primary gaze is midline and are dilated about 6mm and nonreactive to light. No corneal reflex. Negative the oculocephalic. Is not breathing over the vent (was on AC of 28 and upon taking it down to 1 was not breathing over the vent). No gag or cough that's appreciable. Motor the strength is no spontaneous movement and not withdrawing to painful some light throughout. No myoclonic jerks. Decrease tone throughout. The plantars are mute bilaterally. Some of the workup during his hospital visit consisted of: Sodium is 142-->136, calcium 7.1, phosphorus is 6.1, magnesium is 1.5, AST 289 ALT 251-->trending down. Creatinine is 3.04 and BUN is 38-->trending up. Ammonia is <9. CT of the head on 02/14/23: No intracranial hemorrhage or skull fracture. In the body report it is reported as encephalomalacia over the right temporal. I personally reviewed and I agree there is no acute subacute ischemia. 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 CTcervical spine on 02/14/2023 is reported as no fracture or subluxation. Bilateral pneumonia, pulmonary contusion versus aspiration worse in the left. CT face is reported as no fracture. 2D echo: This reported as normal left ventricular size and preserved systolic function. Apical septal motion. Right ventricular enlargement moderately permanently hypertension aortic valve sclerosis without restriction. Mitral annular calcification. No pericardial effusion. - Labs CBC & Chem 7: 02/16/23 04:40 02/16/23 04:40 Labs: Abnormal Lab Results - Last 24 Hours (Table) 02/15/23 02/15/23 02/15/23 Range/Units 17:53 20:57 21:50 WBC (3.8-10.6) k/uL RBC (3.80-5.40) m/uL Hgb (11.4-16.0) gm/dL Hct (34.0-46.0) % RDW (11.5-15.5) % Plt Count (150-450) k/uL Neutrophils # (1.3-7.7) k/uL ABG pCO2 (35-45) mmHg ABG pO2 (83-108) mmHg ABG O2 Saturation (94-97) % Sodium (137-145) mmol/L Potassium 5.4 H (3.5-5.1) mmol/L Carbon Dioxide 21 L (22-30) mmol/L BUN 50 H (7-17) mg/dL Creatinine 4.36 H (0.52-1.04) mg/dL Glucose 132 H (74-99) mg/dL POC Glucose (mg/dL) 145 H 153 H (70-110) mg/dL Calcium 7.1 L (8.4-10.2) mg/dL AST 251 H (14-36) U/L ALT 205 H (4-34) U/L Alkaline Phosphatase 141 H (38-126) U/L Total Protein 5.8 L (6.3-8.2) g/dL Albumin 2.9 L (3.5-5.0) g/dL 02/16/23 02/16/23 02/16/23 Range/Units 00:13 04:40 04:40 WBC 30.5 H (3.8-10.6) k/uL RBC 2.94 L (3.80-5.40) m/uL Hgb 9.1 L (11.4-16.0) gm/dL Hct 26.7 L (34.0-46.0) % RDW 15.6 H (11.5-15.5) % Plt Count 96 L (150-450) k/uL Neutrophils # 28.4 H (1.3-7.7) k/uL ABG pCO2 (35-45) mmHg ABG pO2 (83-108) mmHg ABG O2 Saturation (94-97) % Sodium 136 L (137-145) mmol/L Potassium (3.5-5.1) mmol/L Carbon Dioxide 20 L (22-30) mmol/L BUN 50 H (7-17) mg/dL Creatinine 4.54 H (0.52-1.04) mg/dL Glucose 187 H (74-99) mg/dL POC Glucose (mg/dL) 183 H (70-110) mg/dL Calcium 7.0 L (8.4-10.2) mg/dL AST 212 H (14-36) U/L ALT 179 H (4-34) U/L Alkaline Phosphatase (38-126) U/L Total Protein 5.3 L (6.3-8.2) g/dL Albumin 2.7 L (3.5-5.0) g/dL 02/16/23 02/16/23 02/16/23 Range/Units 05:10 05:31 12:23 WBC (3.8-10.6) k/uL RBC (3.80-5.40) m/uL Hgb (11.4-16.0) gm/dL Hct (34.0-46.0) % RDW (11.5-15.5) % Plt Count (150-450) k/uL Neutrophils # (1.3-7.7) k/uL ABG pCO2 33 L (35-45) mmHg ABG pO2 122 H (83-108) mmHg ABG O2 Saturation 99.0 H (94-97) % Sodium (137-145) mmol/L Potassium (3.5-5.1) mmol/L Carbon Dioxide (22-30) mmol/L BUN (7-17) mg/dL Creatinine (0.52-1.04) mg/dL Glucose (74-99) mg/dL POC Glucose (mg/dL) 184 H 205 H (70-110) mg/dL Calcium (8.4-10.2) mg/dL AST (14-36) U/L ALT (4-34) U/L Alkaline Phosphatase (38-126) U/L Total Protein (6.3-8.2) g/dL Albumin (3.5-5.0) g/dL Microbiology - Last 24 Hours (Table) 02/14/23 04:59 Gram Stain - Final Sputum Sputum Culture - Final Assessment and Plan Assessment: This is a 77-year-old woman with cardiopulmonary arrest outside the hospital and had a total of arrest for about 1 hour. Acute cardiopulmonary arrest and total downtime is 60 minutes. Severe anoxic brain injury due to prolonged cardiopulmonary arrest. Also yesterday patient went into A-fib with RVR and besides prolonged cardiopulmonary arrest, unsure if patient has acute/subacute stroke. A-fib with RVR yesterday and is on Amiodarone Electrolyte imbalance with hyperphosphatemia and hypomagnesemia with elevated AST and ALT. Likely liver shock. Cardiopulmonary arrest Acute ST myocardial infarction Left facial hematoma centered to fall/trauma Acute kidney injury History of coronary artery disease with previous CABG about 20 years ago History of hypertension Cerebral obstructive sleep apnea Plan: Stat EEG today:Pending. Pending repeat CT of the head today. IV Propofol 50mcg/kg/min was held for two hours today prior to examination and IV Nimbex held since yesterday A.M. and patient had dilated fixed pupils and no brainstem reflex. Please avoid any sedation and correct electrolyte imbalance for better neurological examination and possible brain examination Tomorrow or day after. For A-fib and STEMI Cardiology is on board. It seem initially patient was on heparin drip but was bleeding per nurse so was stopped. Currently not on anticoagulation or antiplateletes. I started the patient on ASA 81mg daily and Lipitor 40mg qhs and if any further bleeding or worsening anemia then stop ASA. Nephrology is on board. Will defer the rest of medical issues to the primary and other specialists For DVT prophylaxis: Use SCD but if safe start subq heparin or Lovenox. Prognosis is very poor because of prolonged down time. I spoke with the patien t's daughter (Nina) via phone and updated her. Will wait for family decision. The plan is discussed with ICU attending and nurse. Dr. Rodrigues will start neurology service tomorrow A.M. Time with Patient: Less than 30
--- NOTE | 2023-02-16 13:21 | CT ---
EXAMINATION TYPE: CT brain wo con DATE OF EXAM: 02/16/2023 COMPARISON: 02/14/2023 HISTORY: 77-year-old female Follow up, CPR TECHNIQUE: Examination was done in axial plane without intravenous contrast. Coronal and sagittal r econstructions performed. CT DLP: 1050.3 mGycm Automated exposure control for dose reduction was used. FINDINGS: Redemonstrated left frontal medial left supraorbital soft tissue hematoma. No underlying calvarial fr acture. There is new extensive loss of avila-white matter differentiation with diffuse hypodensity and areas o f more pronounced hypodensity such as right temporal lobe and bilateral parieto-occipital lobes. Pseu dosubarachnoid noted. No acute intracranial hemorrhage seen. Crowding of the basal cisterns and vika ening of the ventricles. No artur herniation of the cerebellar tonsils. Paranasal sinuses and mastoid air cells well pneumatized. Orbits and globes are intact. IMPRESSION: New diffuse, severe cerebral edema. Edema flattens the ventricular system and effaces the basal ciste rns. Associated large acute infarcts right temporal lobe and bilateral parieto-occipital lobes. Findi ngs highly suggestive of poor outcome. Findings called to Dr. Villagomez at 1:15pm.
[2023-02-16] MEDS ORDERED: ASPIRIN 300 MG SUPP RECTAL SCH (13:30)
[2023-02-16] MEDS ORDERED: ASPIRIN 81 MG PO STA (13:38)
--- NOTE | 2023-02-16 14:24 | P.PN ---
Subjective Progress Note Date: 02/16/23 This is Juanjo Sr NP, I'm dictating on behalf of Dr. Ritchie's H&P and A&P. Patient was interviewed and examined. Patient is a 69-year-old female who is brought to the hospital via EMS after being found in cardiopulmonary arrest for an undetermined amount of time. Patient had multiple shocks, as well as CPR for approximately 45 minutes. Patient is seen again in the ICU, intubated. Nursing reports that the patient is no longer on sedation, and is not breathing against the vent on her own. The patient went into A. fib with RVR last night, and we started the patient on an amiodarone drip. Upon examination, her rate is controlled per telemetry. She remains in atrial fibrillation. Patient continues to need multiple pressors to maintain her blood pressure. After examination of the patient a computed tomography scan of the brain was done which shows new diffuse, severe cerebral edema, edema flattens the ventricular system, and effaces the basal cisterns. Associated large, acute infarcts of the right temporal lobe and bilateral parieto-occipital lobes. Findings are highly suggestive of a poor outcome. GENERAL: Intubated and unconscious. NECK: Supple without JVD or thyromegaly. LUNGS: Breath sounds clear to auscultation bilaterally. Respiration equal and unlabored. No wheezes, rales or rhonchi. HEART: Regular rate and irregular rhythm without murmurs, rubs or gallops. S1 a nd S2 heard. EXTREMITIES: No edema. No clubbing or cyanosis. Peripheral pulses intact and strong. VITALS: Temp 98.7, pulse 88, respirations 13, blood pressure 125/75, O2 saturation 98% on mechanical ventilation TELEMETRY: Atrial fibrillation with controlled ventricular response LABS: White count 30.5, hemoglobin 9.1, platelets 96, sodium 136, potassium 4.8, BUN 50, creatinine 4.54, calcium 7, magnesium 2.3 IMPRESSION: 1. Cardiac arrest with prolonged CPR and severe acidosis 2. Acute ST elevated myocardial infarction, inferolateral 3. History of coronary artery disease with prior CABG 4. Acute renal failure 5. Status post mechanical fall, facial hematoma 6. Severe cerebral edema 7. Large acute infarcts of the right temporal lobe and bilateral parieto- occipital lobes. PLAN: Continue amiodarone drip. Considering the findings of the computed tomography scan would highly recommend comfort care. Patient's prognosis is very poor. Further recommendations based on patient's clinical course. Objective - Vital Signs Vital signs: Vital Signs Temp 98.7 F 02/16/23 12:00 Pulse 84 02/16/23 13:00 Resp 0 L 02/16/23 13:00 BP 119/86 02/16/23 12:45 Pulse Ox 99 02/16/23 13:00 FiO2 50 02/16/23 12:00 Intake & Output 02/15/23 02/16/23 02/16/23 18:59 06:59 18:59 Intake Total 8380.702 7970.948 963.969 Output Total 0 100 0 Balance 4575.043 6756.948 963.969 Weight 94.5 kg Intake: IV 510 900 400 .9 @ KVO 160 Magnesium Sulfate-D5w Pmx 100 200 1 gm In Dextrose/Water 1 100ml.bag @ 100 mls/hr IVPB ONCE ONE Rx#: [id number] Piperacillin-Tazobactam 3 100 100 .375 gm In Sodium Chloride 0.9% 100 ml @ 25 mls/hr IVPB Q12HR [facility] Rx #:[id number] Sodium Chloride 0.9% 1, 150 600 400 000 ml @ 50 mls/hr IV . Q20H [facility] Rx#:[id number] Intake, IV Titration 708.522 288.948 347.969 Amount Cisatracurium 200 mg In 135.448 Sodium Chloride 0.9% 180 ml @ 1 MCG/KG/MIN 5.506 mls/hr IV .Q24H [facility] Rx#: [id number] EPINEPHrine 4 mg In 284.002 Dextrose 5% in Water 250 ml @ 0.03 MCG/KG/MIN 10. 323 mls/hr IV .Q24H [facility] Rx#:[id number] Norepinephrine 32 mg In 74.460 88.689 50.425 Sodium Chloride 0.9% 218 ml @ 0.03 MCG/KG/MIN 1. 329 mls/hr IV .Q24H [facility] Rx#:[id number] Piperacillin-Tazobactam 3 200 .375 gm In Sodium Chloride 0.9% 100 ml @ 25 mls/hr IVPB Q12HR [facility] Rx #:[id number] Vasopressin 60 unit In 14.612 4.871 Sodium Chloride 0.9% 150 ml @ 0.04 UNITS/MIN 6.12 mls/hr IV .Q24H [facility] Rx#: [id number] propofoL 1,000 mg In 200.000 195.388 97.544 Empty Bag 1 bag @ 15 MCG/ KG/MIN 8.259 mls/hr IV . Q12H7M [facility] Rx#:[id number] Tube Feeding 60 230 216 Hemodialysis 400 Other 60 90 Output: Urine 0 55 0 Hemodialysis 45 Other: Voiding Method Indwelling Catheter Indwelling Catheter Indwelling Catheter ABP, PAP, CO, CI - Last Documented Arterial Blood Pressure 122/68 - Labs CBC & Chem 7: 02/16/23 04:40 02/16/23 04:40 Labs: Abnormal Lab Results - Last 24 Hours (Table) 02/15/23 02/15/23 02/15/23 Range/Units 17:53 20:57 21:50 WBC (3.8-10.6) k/uL RBC (3.80-5.40) m/uL Hgb (11.4-16.0) gm/dL Hct (34.0-46.0) % RDW (11.5-15.5) % Plt Count (150-450) k/uL Neutrophils # (1.3-7.7) k/uL ABG pCO2 (35-45) mmHg ABG pO2 (83-108) mmHg ABG O2 Saturation (94-97) % Sodium (137-145) mmol/L Potassium 5.4 H (3.5-5.1) mmol/L Carbon Dioxide 21 L (22-30) mmol/L BUN 50 H (7-17) mg/dL Creatinine 4.36 H (0.52-1.04) mg/dL Glucose 132 H (74-99) mg/dL POC Glucose (mg/dL) 145 H 153 H (70-110) mg/dL Calcium 7.1 L (8.4-10.2) mg/dL AST 251 H (14-36) U/L ALT 205 H (4-34) U/L Alkaline Phosphatase 141 H (38-126) U/L Total Protein 5.8 L (6.3-8.2) g/dL Albumin 2.9 L (3.5-5.0) g/dL 02/16/23 02/16/2302/16/24 Range/Units 00:13 04:40 04:40 WBC 30.5 H (3.8-10.6) k/uL RBC 2.94 L (3.80-5.40) m/uL Hgb 9.1 L (11.4-16.0) gm/dL Hct 26.7 L (34.0-46.0) % RDW 15.6 H (11.5-15.5) % Plt Count 96 L (150-450) k/uL Neutrophils # 28.4 H (1.3-7.7) k/uL ABG pCO2 (35-45) mmHg ABG pO2 (83-108) mmHg ABG O2 Saturation (94-97) % Sodium 136 L (137-145) mmol/L Potassium (3.5-5.1) mmol/L Carbon Dioxide 20 L (22-30) mmol/L BUN 50 H (7-17) mg/dL Creatinine 4.54 H (0.52-1.04) mg/dL Glucose 187 H (74-99) mg/dL POC Glucose (mg/dL) 183 H (70-110) mg/dL Calcium 7.0 L (8.4-10.2) mg/dL AST 212 H (14-36) U/L ALT 179 H (4-34) U/L Alkaline Phosphatase (38-126) U/L Total Protein 5.3 L (6.3-8.2) g/dL Albumin 2.7 L (3.5-5.0) g/dL 02/16/23 02/16/23 02/16/23 Range/Units 05:10 05:31 12:23 WBC (3.8-10.6) k/uL RBC (3.80-5.40) m/uL Hgb (11.4-16.0) gm/dL Hct (34.0-46.0) % RDW (11.5-15.5) % Plt Count (150-450) k/uL Neutrophils # (1.3-7.7) k/uL ABG pCO2 33 L (35-45) mmHg ABG pO2 122 H (83-108) mmHg ABG O2 Saturation 99.0 H (94-97) % Sodium (137-145) mmol/L Potassium (3.5-5.1) mmol/L Carbon Dioxide (22-30) mmol/L BUN (7-17) mg/dL Creatinine (0.52-1.04) mg/dL Glucose (74-99) mg/dL POC Glucose (mg/dL) 184 H 205 H (70-110) mg/dL Calcium (8.4-10.2) mg/dL AST (14-36) U/L ALT (4-34) U/L Alkaline Phosphatase (38-126) U/L Total Protein (6.3-8.2) g/dL Albumin (3.5-5.0) g/dL Microbiology - Last 24 Hours (Table) 02/14/23 04:59 Gram Stain - Final Sputum Sputum Culture - Final
[2023-02-16] MEDS ORDERED: MANNITOL 20% IV ONE (15:00)
[2023-02-16] MEDS ORDERED: SALINE IV ONE (15:00)
[2023-02-16 15:23] LABS: African American GFR (CKD) 9 (>60 ml/min/1.73 sqM); Anion Gap 14 mmol/L; Blood Urea Nitrogen 57 mg/dL (7-17); Calcium 7.2 mg/dL (8.4-10.2); Carbon Dioxide 18 mmol/L (22-30); Chloride 104 mmol/L (98-107); Glucose 171 mg/dL (74-99); Non-African American GFR(CKD) 8 (>60 ml/min/1.73 sqM); Potassium 4.5 mmol/L (3.5-5.1); Sodium 136 mmol/L (137-145)
--- NOTE | 2023-02-16 16:31 | US ---
EXAMINATION TYPE: US carotid duplex BILAT DATE OF EXAM: 02/16/2023 COMPARISON: NONE CLINICAL INDICATION: Female, 77 years old with history of stroke; TECHNIQUE: Carotid duplex ultrasound examination. Indirect Doppler criteria was utilized. FINDINGS: EXAM MEASUREMENTS: RIGHT: Peak Systolic Velocity (PSV) cm/sec ----- Right CCA: 83.2 ----- Right ICA: 89.7 ----- Right ECA: 86.7 ICA/CCA ratio: 1.08 RIGHT: End Diastole cm/sec ----- Right CCA: 8.3 ----- Right ICA: 7.7 ----- Right ECA: 11.3 LEFT: Peak Systolic Velocity (PSV) cm/sec ----- Left CCA: 54.0 ----- Left ICA: 60.0 ----- Left ECA: 48.7 ICA/CCA ratio: 1.11 LEFT: End Diastole cm/sec ----- Left CCA: 8.32 ----- Left ICA: 16.6 ----- Left ECA: 7.72 VERTEBRALS (direction of flow): Right Vertebral: Antegrade Left Vertebral: Antegrade Rhythm: Abnormal [employer] NOTES: Difficult study due to patient condition. No signs of significant stenosis within the bilateral carotid arteries. IMPRESSION: No hemodynamically significant internal carotid artery stenosis on either side. Criteria for Assigning % of Stenosis / Diameter reduction (Estimation based on the indirect measurements of the internal carotid artery velocities (ICA PSV). 1. Normal (no stenosis)=ICA PSV < 125 cm/s: ratio < 2.0: ICA EDV<40 cm/s. 2. Less than 50% stenosis=ICA PSV < 125 cm/s: ratio < 2.0: ICA EDV<40 cm/s. 3. 50 to 69% stenosis=ICA PSV of 125 to 230 cm/s: ration 2.0 ? 4.0: ICA EDV 40-100 cm/s. 4. Greater than 70% stenosis to near occlusion= ICA PSV > 230 cm/s: ratio > 4.0: ICA EDV > 100 cm/s. 5. Near occlusion= ICA PSV velocities may be low or undetectable: variable ratio and ICA EDV. 6. Total occlusion=unable to detect flow.
[2023-02-16 17:12] LABS: Glucose,Whole Blood 175 mg/dL (70-110)
[2023-02-16] MEDS: NOREPINEPHRINE 4 MG in SODIUM CHLORIDE 0.9% 250 ML IV SCH (20:03)
[2023-02-16] MEDS: ATORVASTATIN 40 MG TAB PO SCH (20:57)
[2023-02-16 23:31] LABS: Chol/HDL Ratio 4.53 Ratio; LDL Cholesterol,Calculated 42.8 mg/dL (0.0-131.0)
[2023-02-16 23:56] LABS: Glucose,Whole Blood 188 mg/dL (70-110)
[2023-02-17] MEDS: IPRATROPIUM-ALBUTEROL 3 ML NEB INHALATION SCH ×7 (00:19→23:31)
[2023-02-17] MEDS: INSULIN ASPART (NovoLOG) 100 UNIT/ML VIAL SQ SCH ×5 (00:36→23:32)
--- NOTE | 2023-02-17 02:19 | EEG ---
ELECTROENCEPHALOGRAM REPORT CLINICAL HISTORY: This is a 77-year-old woman with a prolonged cardiopulmonary arrest who has altered mental status. The video EEG is obtained to evaluate for seizure and epileptiform activity. RELEVANT MEDICATIONS: The IV propofol has been held for about an hour and half prior to this testing. DESCRIPTION: The patient is intubated on a ventilator. The background and there is no cerebral activity noted over bilateral hemispheres even with lowering the sensitivity to 2 microvolts on this routine EEG throughout the entire study. Interictal and ictal is no epileptiform discharge or seizure noted throughout the study. As stated above, there is no discernible activity that is appreciable throughout the study. ACTIVATION PROCEDURE: Photic stimulation was performed and there was no photic driving or any abnormalities. Hyperventilation is not performed. CLINICAL INTERPRETATION: This is an abnormal routine EEG. There is no appreciable cerebral activity over bilateral hemisphere throughout the entire routine EEG. There is no epileptiform discharges or seizure during this study. Clinical correlation is recommended. MMODL / IJN: [id number] /
[2023-02-17] MEDS: NOREPINEPHRINE 4 MG in SODIUM CHLORIDE 0.9% 250 ML IV SCH (03:15)
[2023-02-17] MEDS: SODIUM CHLORIDE 0.9% 1,000 ML IV SCH (04:04)
[2023-02-17 04:23] LABS: Anisocytosis Slight; HGB 8.3 gm/dL (11.4-16.0); MCHC 33.1 g/dL (31.0-37.0); MCV 90.9 fL (80.0-100.0); Mean Platelet Volume 13.4; RBC 2.75 m/uL (3.80-5.40); RDW 16.2 % (11.5-15.5); WBC 30.6 k/uL (3.8-10.6)
[2023-02-17 04:34] LABS: Platelet Count 62 k/uL (150-450)
[2023-02-17 04:35] LABS: ALT 134 U/L (4-34); AST 85 U/L (14-36); African American GFR (CKD) 8 (>60 ml/min/1.73 sqM); Albumin 2.8 g/dL (3.5-5.0); Alkaline Phosphatase 116 U/L (38-126); Anion Gap 16 mmol/L; Blood Urea Nitrogen 60 mg/dL (7-17); Calcium 7.2 mg/dL (8.4-10.2); Carbon Dioxide 16 mmol/L (22-30); Chloride 104 mmol/L (98-107); Glucose 168 mg/dL (74-99); Non-African American GFR(CKD) 7 (>60 ml/min/1.73 sqM); Potassium 4.2 mmol/L (3.5-5.1); Sodium 136 mmol/L (137-145); Total Bilirubin 1.1 mg/dL (0.2-1.3); Total Protein 5.4 g/dL (6.3-8.2)
[2023-02-17 05:37] LABS: Glucose,Whole Blood 181 mg/dL (70-110)
[2023-02-17] MEDS: CALCIUM ACETATE 667 MG TAB PO SCH ×2 (05:45→16:41)
[2023-02-17 05:48] LABS: ABG Base Excess -6.7 mmol/L; ABG HCO3 19 mmol/L (21-25); ABG Oxygen Saturation 98.2 % (94-97); ABG PCO2 33 mmHg (35-45); ABG PH 7.36 (7.35-7.45); ABG PO2 118 mmHg (83-108); ABG TCO2 20 mmol/L (19-24); Allen Test Performed? Yes
[2023-02-17] MEDS: NOREPINEPHRINE 8 MG in SODIUM CHLORIDE 0.9% 250 ML IV SCH ×3 (06:30→20:28)
--- NOTE | 2023-02-17 07:28 | P.PN ---
Subjective Progress Note Date: 02/17/23 Principal diagnosis: Cardiac arrest The patient is a 77-year-old female patient with a past medical history significant for coronary artery disease and status post CABG ago as well as multiple comorbid conditions including morbid obesity who was admitted to the hospital with a chest discomfort and she was diagnosed was st segment elevation myocardial infarction complicated by cardiac arrest. apparently the patient required prolonged cpr. currently she is intubated and she is on mechanical ventilation. there is concern about possible anoxic encephalopathy as well. currently she is in atrial fibrillation with controlled heart rate as well. 02/17/2023 the patient was seen and evaluated this morning. The patient remains intubated on mechanical ventilation which remains in controlled heart rate at this point. She is on vasopressors and she is stable hemodynamically. The prognosis overall is very poor. She is not on anticoagulation because she developed bleeding including I bleeding and the bleeding from the central line and currently her platelet counts are low. The prognosis is extremely poor. Examination is remarkable for patient is on mechanical ventilation with stable vital signs on the vasopressors and amiodarone and diminished breathing sounds bilaterally and irregular rhythm with distant heart sounds Assessment Status post cardiac arrest Possible anoxic encephalopathy Atrial fibrillation with controlled heart rate Thrombocytopenia Coronary artery disease Multiple comorbid conditions Plan Continue the current medical regimen Switch the patient into oral amiodarone Continue holding on any oral anticoagulation Follow-up with the patient Objective - Vital Signs Vital signs: Vital Signs Temp 98.4 F 02/17/23 04:00 Pulse 113 H 02/17/23 07:15 Resp 28 H 02/17/23 07:15 BP 115/71 02/17/23 07:15 Pulse Ox 99 02/17/23 07:15 FiO2 50 02/17/23 04:00 Intake & Output 02/16/23 02/17/23 02/17/23 18:59 06:59 18:59 Intake Total 2847.201 6754.339 81 Output Total 0 25 0 Balance 8852.121 6394.339 81 Weight 101.2 kg Intake: IV 600 733 53 A-line 33 3 Piperacillin-Tazobactam 3 100 .375 gm In Sodium Chloride 0.9% 100 ml @ 25 mls/hr IVPB Q12HR [facility] Rx #:[id number] Sodium Chloride 0.9% 1, 600 600 50 000 ml @ 50 mls/hr IV . Q20H [facility] Rx#:[id number] Intake, IV Titration 379.052 756.339 Amount Amiodarone 450 mg In 250 Dextrose 5% in Water 250 ml @ 0.5 MG/MIN 16.667 mls/hr IV .Q15H [facility] Rx#: [id number] Norepinephrine 32 mg In 81.508 4.054 Sodium Chloride 0.9% 218 ml @ 0.03 MCG/KG/MIN 1. 329 mls/hr IV .Q24H [facility] Rx#:[id number] Norepinephrine 4 mg In 364.605 Sodium Chloride 0.9% 250 ml @ 0.03 MCG/KG/MIN 10. 801 mls/hr IV .[id number] [facility] Rx#:[id number] Norepinephrine 8 mg In 0.49 Sodium Chloride 0.9% 250 ml @ 0.03 MCG/KG/MIN 5. 875 mls/hr IV .Q24H [facility] Rx#:[id number] Piperacillin-Tazobactam 3 200 .375 gm In Sodium Chloride 0.9% 100 ml @ 25 mls/hr IVPB Q12HR [facility] Rx #:[id number] Vasopressin 60 unit In 137.19 Sodium Chloride 0.9% 150 ml @ 0.04 UNITS/MIN 6.12 mls/hr IV .Q24H [facility] Rx#: [id number] propofoL 1,000 mg In 97.544 Empty Bag 1 bag @ 15 MCG/ KG/MIN 8.259 mls/hr IV . Q12H7M [facility] Rx#:[id number] Tube Feeding 272 308 28 Other 90 Output: Urine 0 25 0 Other: Voiding Method Indwelling Catheter Indwelling Catheter ABP, PAP, CO, CI - Last Documented Arterial Blood Pressure 98/58 - Labs CBC & Chem 7: 02/17/23 04:16 02/17/23 04:16 Labs: Abnormal Lab Results - Last 24 Hours (Table) 02/16/23 02/16/23 02/16/23 Range/Units 12:23 14:50 14:50 WBC (3.8-10.6) k/uL RBC (3.80-5.40) m/uL Hgb (11.4-16.0) gm/dL Hct (34.0-46.0) % RDW (11.5-15.5) % Plt Count (150-450) k/uL ABG pCO2 (35-45) mmHg ABG pO2 (83-108) mmHg ABG HCO3 (21-25) mmol/L ABG O2 Saturation (94-97) % Sodium 136 L (137-145) mmol/L Carbon Dioxide 18 L (22-30) mmol/L BUN 57 H (7-17) mg/dL Creatinine 5.03 H (0.52-1.04) mg/dL Glucose 171 H (74-99) mg/dL POC Glucose (mg/dL) 205 H (70-110) mg/dL Calcium 7.2 L (8.4-10.2) mg/dL AST (14-36) U/L ALT (4-34) U/L Total Protein (6.3-8.2) g/dL Albumin (3.5-5.0) g/dL Triglycerides 269.00 H (0.00-149.00) mg/dL VLDL Cholesterol, Calc 53.80 H (5.00-40.00) mg/dL HDL Cholesterol 27.40 L (40.00-60.00) mg/dL 02/16/23 02/16/23 02/17/23 Range/Units 17:10 23:54 04:16 WBC 30.6 H (3.8-10.6) k/uL RBC 2.75 L (3.80-5.40) m/uL Hgb 8.3 L (11.4-16.0) gm/dL Hct 25.0 L (34.0-46.0) % RDW 16.2 H (11.5-15.5) % Plt Count 62 L (150-450) k/uL ABG pCO2 (35-45) mmHg ABG pO2 (83-108) mmHg ABG HCO3 (21-25) mmol/L ABG O2 Saturation (94-97) % Sodium (137-145) mmol/L Carbon Dioxide (22-30) mmol/L BUN (7-17) mg/dL Creatinine (0.52-1.04) mg/dL Glucose (74-99) mg/dL POC Glucose (mg/dL) 175 H 188 H (70-110) mg/dL Calcium (8.4-10.2) mg/dL AST (14-36) U/L ALT (4-34) U/L Total Protein (6.3-8.2) g/dL Albumin (3.5-5.0) g/dL Triglycerides (0.00-149.00) mg/dL VLDL Cholesterol, Calc (5.00-40.00) mg/dL HDL Cholesterol (40.00-60.00) mg/dL 02/17/23 02/17/23 02/17/23 Range/Units 04:16 05:35 05:44 WBC (3.8-10.6) k/uL RBC (3.80-5.40) m/uL Hgb (11.4-16.0) gm/dL Hct (34.0-46.0) % RDW (11.5-15.5) % Plt Count (150-450) k/uL ABG pCO2 33 L (35-45) mmHg ABG pO2 118 H (83-108) mmHg ABG HCO3 19 L (21-25) mmol/L ABG O2 Saturation 98.2 H (94-97) % Sodium 136 L (137-145) mmol/L Carbon Dioxide 16 L (22-30) mmol/L BUN 60 H (7-17) mg/dL Creatinine 5.54 H (0.52-1.04) mg/dL Glucose 168 H (74-99) mg/dL POC Glucose (mg/dL) 181 H (70-110) mg/dL Calcium 7.2 L (8.4-10.2) mg/dL AST 85 H (14-36) U/L ALT 134 H (4-34) U/L Total Protein 5.4 L (6.3-8.2) g/dL Albumin 2.8 L (3.5-5.0) g/dL Triglycerides (0.00-149.00) mg/dL VLDL Cholesterol, Calc (5.00-40.00) mg/dL HDL Cholesterol (40.00-60.00) mg/dL Microbiology - Last 24 Hours (Table) 02/14/23 04:59 Gram Stain - Final Sputum Sputum Culture - Final
--- NOTE | 2023-02-17 07:31 | P.PN ---
Subjective Progress Note Date: 02/17/23 Principal diagnosis: Cardiopulmonary arrest. Cardiopulmonary arrest This is a 77-year-old -[place] female known history of coronary artery disease and previous CABG over 20 years ago. Patient sustained a sudden cardiac arrest yesterday, Found His Mother on the Floor, this was apparently a witnessed collapse, patient sustained some laceration and hematoma over the left periorbital area requiring steri trips placed by the ER physician. EMS performed CPR for about 30 minutes, and she had cardioversion 2. Patient was intubated, and she was brought into the ER and she was noted upon arrival in atrial fibrillation. Then went back into sinus rhythm, initial rhythm according to EMS was asystole. But clearly from the records patient received at least 11 rounds of epinephrine all in all, and she had to be resuscitated again in the ER at least a couple of times. Patient remained hypotensive and transferred to the ICU and she is now requiring epinephrine at 0.12 mcg/kg/m patient is also requiring vasopressin at 0.04 units per minute patient is on heparin drip as per cardiology she is also on propofol at 50 mcg/kg/m. Patient is intubated and mechanically ventilated she is on assist control rate of 24 tidal volume 450 FiO2 on the percent and PEEP of 5 ABG showed a pO2 of 78 pCO2 46 pH of 7.22 initial her vent settings were adjusted and the patient received 1 amp of bicarb rate increased to 28, and repeat ABG showed a pO2 of 75 pCO2 43 pH of 7.29. Mone lozano at the medications given during her resuscitation patient received 11 A of epinephrine she received 3 A of bicarb and she was defibrillated 2. Hence down time is basically over 60 minutes cardiology felt that the patient had significant anoxic injury, and did not feel that the patient should have cardiac catheterization at this point. Awaiting to determine whether the patient is going to show any signs of neurological recovery. I did see the patient in the ICU, and I discussed her condition with the family, discussed the different options of treatment including the option of continuing full support and keeping the patient full code versus continuing the same but changing the CODE STATUS to DO NOT RESUSCITATE versus comfort care measures and letting the patient passed comfortably peacefully and dignified. Family is yet to decide on different options that where discussed Patient was reevaluated today on 02/15/23, remains in the ICU, intubated and mechanically ventilated. Patient is on assist control rate of 28.450 FiO2 was 80% and I cut it down to 60% PEEP was at 5 and I increased the PEEP up to 10. ABG showed a pO2 of 88 pCO2 43 pH of 7.32. Patient is still requiring multiple pressors including epinephrine at 0.1 for microalbumin per kilo per minute, which is also on vasopressin at 0.04 units per minute. Patient had to be placed on Nimbex yesterday because she was not synchronous with the ventilator, and propofol could not take care of the issue. Is also on propofol at 50 mg/kg/m Nimbex is at 1.5 mg/kg/m. No telephone exchange operator the last 24 hours, patient must have s ustained significant anoxic brain injury, hence neurology was consulted to see the patient today, and considering the patient has hardly any urine output and most likely she developed acute tubular necrosis and kidney injury, I'm recommending nephrology to see the patient today. In the meantime the patient will be started on enteral feeding, we'll continue Zosyn, and continue propofol but discontinue Nimbex. Decadron was added 6 mg IV push every 12 hours. Patient is a sliding scale for her elevated blood sugar, and today I recommended one dose of Lasix 80 mg IV push 1 since the patient is not making much of any urine. WBC count is up today 27.7 hemoglobin is 9.8. Basic metabolic profile is normal, renal profile showed worsening BUN up to 38 creatinine is worsening couple to 3.04 liver enzymes are elevated AST of 289 and ALT of 251. Troponin yesterday was as high as 13, and BNP level is 8610 chest x-ray today showed clear right lung, however significant findings noted on the left lung with consolidation involving the left upper lobe left midlung and left lower lobe. Clearly the patient has patchy airspace disease involving the left lung mostly. It is empirically on Zosyn Patient was reevaluated today on 02/16/23, remains in the ICU intubated and mechanically ventilated, remains on assist control rate of 28th 2450 FiO2 50% PEEP of 10 and PEEP was cut down to 8 after reviewing her ABG pO2 today is 122 pCO2 33 pH of 7.42. Patient is unresponsive to any stimuli, her pupils are fixed and dilated. Patient has negative corneals, she has negative gag reflex, she is in the process of having an EEG, and again her neurological status seems to have gotten worse. Being followed by neurology, CT of the brain was negative initially. EEG is pending patient is on multiple drips including amiodarone 0.5 mg/m, patient went into atrial fibrillation with RVR yesterday when dialysis was started and she tolerated only half an hour of dialysis. She is on norepinephrine at 0.17 vasopressin at 0.04 units per minute vital HP 10 mL per hour IV fluid at 50 mL per hour and propofol at 20 mg/kg/m. Today the patient is back in sinus rhythm, nonetheless she is on amiodarone at 0.5 mg/m. Her WBC count is on the rise WBC is 30.5 hemoglobin is 9.1. Basic metabolic profile is normal bicarb is 20 BUN is 50 creatinine 4.54, liver enzymes are slightly elevated. Again overall the picture is looking worse, and urologically the patient is not showing any signs of improvement. Family is still undecided about comfort care measures patient in the meantime remains full code chest x-r ay however is showing improvement in her left lung consolidation, significant improvement noted in the last 24 hours Progress note dated 02/17/2023. This is a 77-year-old black female who had an [id number] cardiopulmonary arrest. The patient was admitted on February 13, and intubated in the ER, she came to the intensive care unit on February 14. The patient had a very prolonged downtime, and had CPR, for about 2 hours, and apparently was coded at times. The patient's overall prognosis obviously remains very poor, and patient has likely sustained significant anoxic brain injury, and possible brain . She remains on the ventilator, with settings of volume assist control, rate 28, ti tamir volume 450, FiO2 50%, and PEEP of 12. Blood gases show pO2 118, pCO2 33, and a pH is 7.36. The patient is currently on amiodarone at 0.5 mg/m, saline at 50 mL an hour, norepinephrine at 50 mcg/m, and vasopressin 0.04 units per minute. Computed tomography scan of the brain shows significant edema, and acute ischemic infarcts. Laboratory data includes a white count of 30.6, hemoglobin 8.3, hematocrit 25, and a platelet count of 62,000. Sodium 136, potassium 4.2, chlorides 104, CO2 16, anion gap 16, BUN 60, creatinine 5.54. Chest x-ray shows a properly placed endotracheal tube, and minimal upper lobe infiltrates. The chest x-rays near normal. Objective - Vital Signs Vital signs: Vital Signs Temp 98.4 F 02/17/23 04:00 Pulse 113 H 02/17/23 07:15 Resp 28 H 02/17/23 07:15 BP 115/71 02/17/23 07:15 Pulse Ox 99 02/17/23 07:15 FiO2 50 02/17/23 04:00 Intake & Output 02/16/23 02/17/23 02/17/23 18:59 06:59 18:59 Intake Total 1235.084 8592.339 81 Output Total 0 25 0 Balance 6642.263 5070.339 81 Weight 101.2 kg Intake: IV 600 733 53 A-line 33 3 Piperacillin-Tazobactam 3 100 .375 gm In Sodium Chloride 0.9% 100 ml @ 25 mls/hr IVPB Q12HR [facility] Rx #:[id number] Sodium Chloride 0.9% 1, 600 600 50 000 ml @ 50 mls/hr IV . Q20H [facility] Rx#:[id number] Intake, IV Titration 379.052 756.339 Amount Amiodarone 450 mg In 250 Dextrose 5% in Water 250 ml @ 0.5 MG/MIN 16.667 mls/hr IV .Q15H [facility] Rx#: [id number] Norepinephrine 32 mg In 81.508 4.054 Sodium Chloride 0.9% 218 ml @ 0.03 MCG/KG/MIN 1. 329 mls/hr IV .Q24H [facility] Rx#:[id number] Norepinephrine 4 mg In 364.605 Sodium Chloride 0.9% 250 ml @ 0.03 MCG/KG/MIN 10. 801 mls/hr IV .[id number] [facility] Rx#:[id number] Norepinephrine 8 mg In 0.49 Sodium Chloride 0.9% 250 ml @ 0.03 MCG/KG/MIN 5. 875 mls/hr IV .Q24H [facility] Rx#:[id number] Piperacillin-Tazobactam 3 200 .375 gm In Sodium Chloride 0.9% 100 ml @ 25 mls/hr IVPB Q12HR [facility] Rx #:[id number] Vasopressin 60 unit In 137.19 Sodium Chloride 0.9% 150 ml @ 0.04 UNITS/MIN 6.12 mls/hr IV .Q24H [facility] Rx#: [id number] propofoL 1,000 mg In 97.544 Empty Bag 1 bag @ 15 MCG/ KG/MIN 8.259 mls/hr IV . Q12H7M [facility] Rx#:[id number] Tube Feeding 272 308 28 Other 90 Output: Urine 0 25 0 Other: Voiding Method Indwelling Catheter Indwelling Catheter ABP, PAP, CO, CI - Last Documented Arterial Blood Pressure 98/58 - Exam No acute distress, unresponsive, with an orally placed endotracheal tube and NG tube. HEENT examination is grossly unremarkable. Large periorbital hematoma on the left. Neck supple. Full range of motion. No adenopathy thyromegaly or neck vein distention. Cardiovascular examination reveals regular rhythm rate. S1-S2 normal. No S3 or S4. 2/6 systolic murmur. Heart rate 100 bpm. Lungs reveal mild scattered crackles. No rhonchi or wheezes. Breath sounds equal. Saturations are in the mid 90s. Abdomen soft without bowel sounds. No masses or tenderness. Extremities are intact. No cyanosis clubbing or edema. Skin is without rash or lesion. Neurologic examination reveals a patient who is unresponsive to painful or verbal stimuli. Pupils are dilated and fixed. They're nonreactive. There is no gag reflex. There is no corneal reflex. - Labs CBC & Chem 7: 02/17/23 04:16 02/17/23 04:16 Labs: Abnormal Lab Results - Last 24 Hours (Table) 02/16/23 02/16/23 02/16/23 Range/Units 12:23 14:50 14:50 WBC (3.8-10.6) k/uL RBC (3.80-5.40) m/uL Hgb (11.4-16.0) gm/dL Hct (34.0-46.0) % RDW (11.5-15.5) % Plt Count (150-450) k/uL ABG pCO2 (35-45) mmHg ABG pO2 (83-108) mmHg ABG HCO3 (21-25) mmol/L ABG O2 Saturation (94-97) % Sodium 136 L (137-145) mmol/L Carbon Dioxide 18 L (22-30) mmol/L BUN 57 H (7-17) mg/dL Creatinine 5.03 H (0.52-1.04) mg/dL Glucose 171 H (74-99) mg/dL POC Glucose (mg/dL) 205 H (70-110) mg/dL Calcium 7.2 L (8.4-10.2) mg/dL AST (14-36) U/L ALT (4-34) U/L Total Protein (6.3-8.2) g/dL Albumin (3.5-5.0) g/dL Triglycerides 269.00 H (0.00-149.00) mg/dL VLDL Cholesterol, Calc 53.80 H (5.00-40.00) mg/dL HDL Cholesterol 27.40 L (40.00-60.00) mg/dL 02/16/23 02/16/23 02/17/23 Range/Units 17:10 23:54 04:16 WBC 30.6 H (3.8-10.6) k/uL RBC 2.75 L (3.80-5.40) m/uL Hgb 8.3 L (11.4-16.0) gm/dL Hct 25.0 L (34.0-46.0) % RDW 16.2 H (11.5-15.5) % Plt Count 62 L (150-450) k/uL ABG pCO2 (35-45) mmHg ABG pO2 (83-108) mmHg ABG HCO3 (21-25) mmol/L ABG O2 Saturation (94-97) % Sodium (137-145) mmol/L Carbon Dioxide (22-30) mmol/L BUN (7-17) mg/dL Creatinine (0.52-1.04) mg/dL Glucose (74-99) mg/dL POC Glucose (mg/dL) 175 H 188 H (70-110) mg/dL Calcium (8.4-10.2) mg/dL AST (14-36) U/L ALT (4-34) U/L Total Protein (6.3-8.2) g/dL Albumin (3.5-5.0) g/dL Triglycerides (0.00-149.00) mg/dL VLDL Cholesterol, Calc (5.00-40.00) mg/dL HDL Cholesterol (40.00-60.00) mg/dL 02/17/23 02/17/23 02/17/23 Range/Units 04:16 05:35 05:44 WBC (3.8-10.6) k/uL RBC (3.80-5.40) m/uL Hgb (11.4-16.0) gm/dL Hct (34.0-46.0) % RDW (11.5-15.5) % Plt Count (150-450) k/uL ABG pCO2 33 L (35-45) mmHg ABG pO2 118 H (83-108) mmHg ABG HCO3 19 L (21-25) mmol/L ABG O2 Saturation 98.2 H (94-97) % Sodium 136 L (137-145) mmol/L Carbon Dioxide 16 L (22-30) mmol/L BUN 60 H (7-17) mg/dL Creatinine 5.54 H (0.52-1.04) mg/dL Glucose 168 H (74-99) mg/dL POC Glucose (mg/dL) 181 H (70-110) mg/dL Calcium 7.2 L (8.4-10.2) mg/dL AST 85 H (14-36) U/L ALT 134 H (4-34) U/L Total Protein 5.4 L (6.3-8.2) g/dL Albumin 2.8 L (3.5-5.0) g/dL Triglycerides (0.00-149.00) mg/dL VLDL Cholesterol, Calc (5.00-40.00) mg/dL HDL Cholesterol (40.00-60.00) mg/dL Microbiology - Last 24 Hours (Table) 02/14/23 04:59 Gram Stain - Final Sputum Sputum Culture - Final Assessment and Plan Assessment: Status post acute cardiopulmonary arrest, with a very prolonged downtime, and likely severe anoxic brain injury, or even brain . Status post intubation and mechanical ventilation, on 02/13/2023. Acute ST elevation myocardial infarction. Acute hypoxemic and hypercapnic respiratory failure. Acute kidney injury/ATN, secondary to hypotension, and prolonged CPR. Left periorbital hematoma. History of CAD with previous bypass grafting. Benign essential hypertension. History of obstructive sleep apnea syndrome. New onset atrial fibrillation. Plan: Plan dated 02/17/2023. According to the nurse, one of the neurologists is going to do a brain evaluation, sometime today. The patient is unresponsive to painful or verbal stimuli. She does not have a gag reflex or corneal reflex. The patient's overall prognosis remains extremely poor, given the fact that she had an [id number] cardiopulmonary arrest, with a prolonged more than 2 or of resuscitation, and having coded at times according to the nurse. The patient's brain CT shows evidence of diffuse edema, and acute ischemic infarct. The patient is not on any sedatives. The patient remains on norepinephrine at 15 mcg/m, and vasopressin at 0.04 units per minute. Additional recommendations and suggestions are forthcoming. The patient continues on amiodarone at 0.5 mg/m for the atrial fibrillation. We will continue to follow the patient, and make recommendations along the way. Time with Patient: Greater than 30
--- NOTE | 2023-02-17 07:36 | XR ---
EXAMINATION TYPE: XR chest 1V portable DATE OF EXAM: 02/17/2023 COMPARISON: 02/16/2023, 07/15/2014 INDICATION: Mechanical ventilation, difficulty breathing TECHNIQUE: Single frontal view of the chest is obtained. FINDINGS: The heart size is mildly prominent. The pulmonary vasculature is normal. Chronic nodularity is at the right base. Minimal blunting left costophrenic angle could be a small am ount of effusion on the left. Endotracheal tube tip is above mary. Nasogastric tube transverses the thorax tip in the left upper quadrant of the abdomen IMPRESSION: 1. Small left pleural effusion. 2. Lines and catheters discussed above.
[2023-02-17] MEDS ORDERED: AMIODARONE 200 MG TAB PO SCH (09:00)
[2023-02-17] MEDS: CHLORHEXIDINE GLUCONATE 15 ML CUP MUCOUS MEM SCH ×2 (10:39→20:06)
[2023-02-17] MEDS: ASPIRIN 81 MG PO SCH (10:40)
[2023-02-17] MEDS: DEXAMETHASONE SOD PHOSPHATE 10 MG/ML 1 ML VIAL IVP SCH ×2 (10:40→20:06)
[2023-02-17] MEDS: PIPERACILLIN-TAZOBACTAM 3.375 GM in SODIUM CHLORIDE 0.9% 100 ML IVPB SCH ×2 (10:40→20:14)
[2023-02-17 11:08] VITALS: BMI 36.0
--- NOTE | 2023-02-17 11:43 | P.PN ---
Subjective Progress Note Date: 02/17/23 Patient was initially seen by Dr. Renato Villagomez. Please refer to his note for details. Patient is a 77-year-old female with cardiopulmonary arrest for downtime of about 1 hour in the STEMI. Patient has no brainstem reflexes. EEG shows isoelectric EEG with no epileptiform activity. Repeat CT head showed diffuse cerebral edema and multiple areas of ischemia. Patient has extremely poor prognosis. Some of the workup during his hospital visit consisted of: Sodium is 142-->136, calcium 7.1, phosphorus is 6.1, magnesium is 1.5, AST 289 ALT 251-->trending down. Creatinine is 3.04 and BUN is 38-->trending up. Ammonia is <9. CT of the head on 02/14/23: No intracranial hemorrhage or skull fracture. In the body report it is reported as encephalomalacia over the right temporal. I personally reviewed and I agree there is no acute subacute ischemia. 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 CTcervical spine on 02/14/2023 is reported as no fracture or subluxation. Bilateral pneumonia, pulmonary contusion versus aspiration worse in the left. CT face is reported as no fracture. 2D echo: This reported as normal left ventricular size and preserved systolic function. Apical septal motion. Right ventricular enlargement moderately permanently hypertension aortic valve sclerosis without restriction. Mitral annular calcification. No pericardial effusion. Objective - Vital Signs Vital signs: Vital Signs Temp 99.5 F 02/17/23 08:00 Pulse 122 H 02/17/23 11:07 Resp 29 H 02/17/23 10:15 BP 98/81 02/17/23 10:15 Pulse Ox 98 02/17/23 10:15 FiO2 50 02/17/23 10:54 Intake & Output 02/16/23 02/17/23 02/17/23 18:59 06:59 18:59 Intake Total 2580.410 7445.339 354 Output Total 0 25 10 Balance 8457.521 3270.339 344 Weight 101.2 kg 101.2 kg Intake: IV 600 733 212 A-line 33 12 Piperacillin-Tazobactam 3 100 .375 gm In Sodium Chloride 0.9% 100 ml @ 25 mls/hr IVPB Q12HR [facility] Rx #:[id number] Sodium Chloride 0.9% 1, 600 600 200 000 ml @ 50 mls/hr IV . Q20H [facility] Rx#:[id number] Intake, IV Titration 379.052 756.339 Amount Amiodarone 450 mg In 250 Dextrose 5% in Water 250 ml @ 0.5 MG/MIN 16.667 mls/hr IV .Q15H [facility] Rx#: [id number] Norepinephrine 32 mg In 81.508 4.054 Sodium Chloride 0.9% 218 ml @ 0.03 MCG/KG/MIN 1. 329 mls/hr IV .Q24H [facility] Rx#:[id number] Norepinephrine 4 mg In 364.605 Sodium Chloride 0.9% 250 ml @ 0.03 MCG/KG/MIN 10. 801 mls/hr IV .[id number] [facility] Rx#:[id number] Norepinephrine 8 mg In 0.49 Sodium Chloride 0.9% 250 ml @ 0.03 MCG/KG/MIN 5. 875 mls/hr IV .Q24H [facility] Rx#:[id number] Piperacillin-Tazobactam 3 200 .375 gm In Sodium Chloride 0.9% 100 ml @ 25 mls/hr IVPB Q12HR [facility] Rx #:[id number] Vasopressin 60 unit In 137.19 Sodium Chloride 0.9% 150 ml @ 0.04 UNITS/MIN 6.12 mls/hr IV .Q24H [facility] Rx#: [id number] propofoL 1,000 mg In 97.544 Empty Bag 1 bag @ 15 MCG/ KG/MIN 8.259 mls/hr IV . Q12H7M [facility] Rx#:[id number] Tube Feeding 272 308 112 Other 90 30 Output: Urine 0 25 10 Other: Voiding Method Indwelling Catheter Indwelling Catheter ABP, PAP, CO, CI - Last Documented Arterial Blood Pressure 92/54 - Exam General: Lying in bed and does not appear in acute distress. HENT: Hematoma over the left periorbital and has tape over left eye Respiratory: Intubated on ventilator. Neuro: Limited. Patient is off propofol since yesterday. Off paralytic agent. Is comatose. GCS 3 (E1, VT1, M1). I had to manually open eyes and primary gaze is midline and are dilated about 6mm and nonreactive to light. No corneal reflex. Negative the oculocephalic. Is not breathing over the vent (was on AC of 28 and upon taking it down to 1 was not breathing over the vent). No gag or cough that's appreciable. Motor the strength is no spontaneous movement and not withdrawing to painful some light throughout. No myoclonic jerks. Decrease tone throughout. The plantars are mute bilaterally. - Labs CBC & Chem 7: 02/17/23 04:16 02/17/23 04:16 Labs: Abnormal Lab Results - Last 24 Hours (Table) 02/16/23 02/16/23 02/16/23 Range/Units 12:23 14:50 14:50 WBC (3.8-10.6) k/uL RBC (3.80-5.40) m/uL Hgb (11.4-16.0) gm/dL Hct (34.0-46.0) % RDW (11.5-15.5) % Plt Count (150-450) k/uL ABG pCO2 (35-45) mmHg ABG pO2 (83-108) mmHg ABG HCO3 (21-25) mmol/L ABG O2 Saturation (94-97) % Sodium 136 L (137-145) mmol/L Carbon Dioxide 18 L (22-30) mmol/L BUN 57 H (7-17) mg/dL Creatinine 5.03 H (0.52-1.04) mg/dL Glucose 171 H (74-99) mg/dL POC Glucose (mg/dL) 205 H (70-110) mg/dL Calcium 7.2 L (8.4-10.2) mg/dL AST (14-36) U/L ALT (4-34) U/L Total Protein (6.3-8.2) g/dL Albumin (3.5-5.0) g/dL Triglycerides 269.00 H (0.00-149.00) mg/dL VLDL Cholesterol, Calc 53.80 H (5.00-40.00) mg/dL HDL Cholesterol 27.40 L (40.00-60.00) mg/dL 02/16/23 02/16/23 02/17/23 Range/Units 17:10 23:54 04:16 WBC 30.6 H (3.8-10.6) k/uL RBC 2.75 L (3.80-5.40) m/uL Hgb 8.3 L (11.4-16.0) gm/dL Hct 25.0 L (34.0-46.0) % RDW 16.2 H (11.5-15.5) % Plt Count 62 L (150-450) k/uL ABG pCO2 (35-45) mmHg ABG pO2 (83-108) mmHg ABG HCO3 (21-25) mmol/L ABG O2 Saturation (94-97) % Sodium (137-145) mmol/L Carbon Dioxide (22-30) mmol/L BUN (7-17) mg/dL Creatinine (0.52-1.04) mg/dL Glucose (74-99) mg/dL POC Glucose (mg/dL) 175 H 188 H (70-110) mg/dL Calcium (8.4-10.2) mg/dL AST (14-36) U/L ALT (4-34) U/L Total Protein (6.3-8.2) g/dL Albumin (3.5-5.0) g/dL Triglycerides (0.00-149.00) mg/dL VLDL Cholesterol, Calc (5.00-40.00) mg/dL HDL Cholesterol (40.00-60.00) mg/dL 02/17/23 02/17/23 02/17/23 Range/Units 04:16 05:35 05:44 WBC (3.8-10.6) k/uL RBC (3.80-5.40) m/uL Hgb (11.4-16.0) gm/dL Hct (34.0-46.0) % RDW (11.5-15.5) % Plt Count (150-450) k/uL ABG pCO2 33 L (35-45) mmHg ABG pO2 118 H (83-108) mmHg ABG HCO3 19 L (21-25) mmol/L ABG O2 Saturation 98.2 H (94-97) % Sodium 136 L (137-145) mmol/L Carbon Dioxide 16 L (22-30) mmol/L BUN 60 H (7-17) mg/dL Creatinine 5.54 H (0.52-1.04) mg/dL Glucose 168 H (74-99) mg/dL POC Glucose (mg/dL) 181 H (70-110) mg/dL Calcium 7.2 L (8.4-10.2) mg/dL AST 85 H (14-36) U/L ALT 134 H (4-34) U/L Total Protein 5.4 L (6.3-8.2) g/dL Albumin 2.8 L (3.5-5.0) g/dL Triglycerides (0.00-149.00) mg/dL VLDL Cholesterol, Calc (5.00-40.00) mg/dL HDL Cholesterol (40.00-60.00) mg/dL Microbiology - Last 24 Hours (Table) 02/14/23 04:59 Gram Stain - Final Sputum Sputum Culture - Final Assessment and Plan Assessment: This is a 77-year-old woman with cardiopulmonary arrest outside the hospital and had a total of arrest for about 1 hour. Acute cardiopulmonary arrest and total downtime is 60 minutes. Severe anoxic brain injury due to prolonged cardiopulmonary arrest. Patient went into A-fib with RVR and besides prolonged cardiopulmonary arrest, unsure if patient has acute/subacute stroke. A-fib with RVR yesterday and is on Amiodarone Electrolyte imbalance with hyperphosphatemia and hypomagnesemia with elevated AST and ALT. Likely liver shock. Cardiopulmonary arrest Acute ST myocardial infarction Left facial hematoma centered to fall/trauma Acute kidney injury History of coronary artery disease with previous CABG about 20 years ago History of hypertension Cerebral obstructive sleep apnea Plan: EEG report reviewed. Repeat CT of the head 02/16/2023 also reviewed. Evidence of significant cerebral edema, probable herniation and evidence of multiple areas of subacute ischemia. Patient is off all sedation since 9 AM yesterday, patient has no cortical or brainstem reflexes. Patient probably has clinical evidence of cerebral . For A-fib and STEMI Cardiology is on board. It seem initially patient was on heparin drip but was bleeding per nurse so was stopped. Currently not on anticoagulation or antiplateletes. Dr. Villagomez has started the patient on ASA 81mg daily and Lipitor 40mg qhs and if any further bleeding or worsening anemia then stop ASA. Nephrology is on board. Will defer the rest of medical issues to the primary and other specialists For DVT prophylaxis: Use SCD but if safe start subq heparin or Lovenox. Prognosis is very poor because of prolonged down time, clinical examination, EEG and CT findings. I discussed with patient's multiple family members including her daughter Nina, and informed about current clinical condition, reviewed computed tomography scan of the head on the computer with them and informed about the prognosis. Recommend thiamine and weaning and comfort care. They want to discuss among family members before making any decision.
[2023-02-17 11:49] LABS: Glucose,Whole Blood 199 mg/dL (70-110)
--- NOTE | 2023-02-17 12:39 | P.GSCN ---
History of Present Illness History of present illness: Patient was seen in consultation for Allis catheter placement. Patient came with a cardiac arrest and patient is [facility] Yudelkahen has been intubated. Patient has history of sleep apnea, hypertension, post CABG Abdomen is soft nontender Femorals are 1+ bilateral Plan is placement of a dialysis catheter Past Medical History Past Medical History: Coronary Artery Disease (CAD), Hypertension, Sleep Apnea/CPAP/BIPAP Additional Past Medical History / Comment(s): Sciatica History of Any Multi-Drug Resistant Organisms: None Reported Past Surgical History: Coronary Bypass/CABG Additional Past Surgical History / Comment(s): Early 1999s (2002 or 2004) Past Anesthesia/Blood Transfusion Reactions: No Reported Reaction Past Psychological History: No Psychological Hx Reported Smoking Status: Former smoker - Past Family History Mother Family Medical History: No Reported History Medications and Allergies Home Medications Medication Instructions Recorded Confirmed Type Metoprolol Tartrate [Lopressor] 25 mg PO BID 07/23/13 02/14/23 History Irbesartan 300 mg PO DAILY 04/08/22 02/14/23 History Latanoprost/Pf [Latanoprost 0.005% 1 drop BOTH EYES HS 04/08/22 02/14/23 History Eye Drop] [place]-3 Fatty Acids [[place]-3] 1,000 mg PO DAILY 04/08/22 02/14/23 History Albuterol Sulfate [Albuterol 2 puff PO RT-Q4H PRN 02/14/23 02/14/23 History Sulfate Hfa] Aspirin EC [Ecotrin Low Dose] 81 mg PO DAILY 02/14/23 02/14/23 History Ergocalciferol [Vitamin D2 (1250 1,250 mcg PO QMONTHLY 02/14/23 02/14/23 History Mcg = 85809 Iu)] Spironolactone 25 mg PO DAILY 02/14/23 02/14/23 History amLODIPine [Norvasc] 10 mg PO DAILY 02/14/23 02/14/23 History Allergies Allergy/AdvReac Type Severity Reaction Status Date / Time No Known Allergies Allergy Verified 02/14/23 09:12 Surgical - Exam Vital Signs FiO2 100 02/14/23 01:06 Results - Labs 02/17/23 04:16 02/17/23 04:16 Abnormal Lab Results - Last 24 Hours (Table) 02/16/23 02/16/2324 Range/Units 14:50 14:50 17:10 WBC (3.8-10.6) k/uL RBC (3.80-5.40) m/uL Hgb (11.4-16.0) gm/dL Hct (34.0-46.0) % RDW (11.5-15.5) % Plt Count (150-450) k/uL ABG pCO2 (35-45) mmHg ABG pO2 (83-108) mmHg ABG HCO3 (21-25) mmol/L ABG O2 Saturation (94-97) % Sodium 136 L (137-145) mmol/L Carbon Dioxide 18 L (22-30) mmol/L BUN 57 H (7-17) mg/dL Creatinine 5.03 H (0.52-1.04) mg/dL Glucose 171 H (74-99) mg/dL POC Glucose (mg/dL) 175 H (70-110) mg/dL Calcium 7.2 L (8.4-10.2) mg/dL AST (14-36) U/L ALT (4-34) U/L Total Protein (6.3-8.2) g/dL Albumin (3.5-5.0) g/dL Triglycerides 269.00 H (0.00-149.00) mg/dL VLDL Cholesterol, Calc 53.80 H (5.00-40.00) mg/dL HDL Cholesterol 27.40 L (40.00-60.00) mg/dL 02/16/23 02/17/23 02/17/23 Range/Units 23:54 04:16 04:16 WBC 30.6 H (3.8-10.6) k/uL RBC 2.75 L (3.80-5.40) m/uL Hgb 8.3 L (11.4-16.0) gm/dL Hct 25.0 L (34.0-46.0) % RDW 16.2 H (11.5-15.5) % Plt Count 62 L (150-450) k/uL ABG pCO2 (35-45) mmHg ABG pO2 (83-108) mmHg ABG HCO3 (21-25) mmol/L ABG O2 Saturation (94-97) % Sodium 136 L (137-145) mmol/L Carbon Dioxide 16 L (22-30) mmol/L BUN 60 H (7-17) mg/dL Creatinine 5.54 H (0.52-1.04) mg/dL Glucose 168 H (74-99) mg/dL POC Glucose (mg/dL) 188 H (70-110) mg/dL Calcium 7.2 L (8.4-10.2) mg/dL AST 85 H (14-36) U/L ALT 134 H (4-34) U/L Total Protein 5.4 L (6.3-8.2) g/dL Albumin 2.8 L (3.5-5.0) g/dL Triglycerides (0.00-149.00) mg/dL VLDL Cholesterol, Calc (5.00-40.00) mg/dL HDL Cholesterol (40.00-60.00) mg/dL 02/17/23 02/17/23 02/17/23 Range/Units 05:35 05:44 11:48 WBC (3.8-10.6) k/uL RBC (3.80-5.40) m/uL Hgb (11.4-16.0) gm/dL Hct (34.0-46.0) % RDW (11.5-15.5) % Plt Count (150-450) k/uL ABG pCO2 33 L (35-45) mmHg ABG pO2 118 H (83-108) mmHg ABG HCO3 19 L (21-25) mmol/L ABG O2 Saturation 98.2 H (94-97) % Sodium (137-145) mmol/L Carbon Dioxide (22-30) mmol/L BUN (7-17) mg/dL Creatinine (0.52-1.04) mg/dL Glucose (74-99) mg/dL POC Glucose (mg/dL) 181 H 199 H (70-110) mg/dL Calcium (8.4-10.2) mg/dL AST (14-36) U/L ALT (4-34) U/L Total Protein (6.3-8.2) g/dL Albumin (3.5-5.0) g/dL Triglycerides (0.00-149.00) mg/dL VLDL Cholesterol, Calc (5.00-40.00) mg/dL HDL Cholesterol (40.00-60.00) mg/dL Microbiology - Last 24 Hours (Table) 02/14/23 04:59 Gram Stain - Final Sputum Sputum Culture - Final Diabetes panel 02/16/23 02/16/23 02/17/23 Range/Units 14:50 14:50 04:16 Sodium 136 L 136 L (137-145) mmol/L Potassium 4.5 4.2 (3.5-5.1) mmol/L Chloride 104 104 (98-107) mmol/L Carbon Dioxide 18 L 16 L (22-30) mmol/L BUN 57 H 60 H (7-17) mg/dL Creatinine 5.03 H 5.54 H (0.52-1.04) mg/dL Glucose 171 H 168 H (74-99) mg/dL Calcium 7.2 L 7.2 L (8.4-10.2) mg/dL AST 85 H (14-36) U/L ALT 134 H (4-34) U/L Alkaline Phosphatase 116 (38-126) U/L Total Protein 5.4 L (6.3-8.2) g/dL Albumin 2.8 L (3.5-5.0) g/dL Triglycerides 269.00 H (0.00-149.00) mg/dL HDL Cholesterol 27.40 L (40.00-60.00) mg/dL Calcium panel 02/16/23 02/17/23 Range/Units 14:50 04:16 Calcium 7.2 L 7.2 L (8.4-10.2) mg/dL Albumin 2.8 L (3.5-5.0) g/dL Pituitary panel 02/16/23 02/17/23 Range/Units 14:50 04:16 Sodium 136 L 136 L (137-145) mmol/L Potassium 4.5 4.2 (3.5-5.1) mmol/L Chloride 104 104 (98-107) mmol/L Carbon Dioxide 18 L 16 L (22-30) mmol/L BUN 57 H 60 H (7-17) mg/dL Creatinine 5.03 H 5.54 H (0.52-1.04) mg/dL Glucose 171 H 168 H (74-99) mg/dL Calcium 7.2 L 7.2 L (8.4-10.2) mg/dL Adrenal panel 02/16/23 02/17/23 Range/Units 14:50 04:16 Sodium 136 L 136 L (137-145) mmol/L Potassium 4.5 4.2 (3.5-5.1) mmol/L Chloride 104 104 (98-107) mmol/L Carbon Dioxide 18 L 16 L (22-30) mmol/L BUN 57 H 60 H (7-17) mg/dL Creatinine 5.03 H 5.54 H (0.52-1.04) mg/dL Glucose 171 H 168 H (74-99) mg/dL Calcium 7.2 L 7.2 L (8.4-10.2) mg/dL Total Bilirubin 1.1 (0.2-1.3) mg/dL AST 85 H (14-36) U/L ALT 134 H (4-34) U/L Alkaline Phosphatase 116 (38-126) U/L Total Protein 5.4 L (6.3-8.2) g/dL Albumin 2.8 L (3.5-5.0) g/dL
--- NOTE | 2023-02-17 13:15 | P.PN ---
Subjective Patient is seen for follow-up for acute kidney injury. Repeat CT of the head shows diffuse cerebral edema with multiple areas of ischemia with extremely poor prognosis. Comfort care measures have been discussed with family. Urine output and sero-ML per hour. Serum potassium 4.2 and creatinine at 5.5 today. Patient is not an ideal candidate for hemodialysis. Agree with discussion regarding comfort care measures. Objective - Vital Signs Vital signs: Vital Signs Temp 99.5 F 02/17/23 08:00 Pulse 124 H 02/17/23 11:45 Resp 28 H 02/17/23 11:45 BP 102/61 02/17/23 11:45 Pulse Ox 99 02/17/23 11:45 FiO2 50 02/17/23 11:00 Intake & Output 02/16/23 02/17/23 02/17/23 18:59 06:59 18:59 Intake Total 9513.108 2231.339 441 Output Total 0 25 10 Balance 9624.347 2892.339 431 Weight 101.2 kg 101.2 kg Intake: IV 600 733 265 A-line 33 15 Piperacillin-Tazobactam 3 100 .375 gm In Sodium Chloride 0.9% 100 ml @ 25 mls/hr IVPB Q12HR [facility] Rx #:[id number] Sodium Chloride 0.9% 1, 600 600 250 000 ml @ 50 mls/hr IV . Q20H [facility] Rx#:[id number] Intake, IV Titration 379.052 756.339 Amount Amiodarone 450 mg In 250 Dextrose 5% in Water 250 ml @ 0.5 MG/MIN 16.667 mls/hr IV .Q15H [facility] Rx#: [id number] Norepinephrine 32 mg In 81.508 4.054 Sodium Chloride 0.9% 218 ml @ 0.03 MCG/KG/MIN 1. 329 mls/hr IV .Q24H [facility] Rx#:[id number] Norepinephrine 4 mg In 364.605 Sodium Chloride 0.9% 250 ml @ 0.03 MCG/KG/MIN 10. 801 mls/hr IV .[id number] [facility] Rx#:[id number] Norepinephrine 8 mg In 0.49 Sodium Chloride 0.9% 250 ml @ 0.03 MCG/KG/MIN 5. 875 mls/hr IV .Q24H [facility] Rx#:[id number] Piperacillin-Tazobactam 3 200 .375 gm In Sodium Chloride 0.9% 100 ml @ 25 mls/hr IVPB Q12HR [facility] Rx #:[id number] Vasopressin 60 unit In 137.19 Sodium Chloride 0.9% 150 ml @ 0.04 UNITS/MIN 6.12 mls/hr IV .Q24H [facility] Rx#: [id number] propofoL 1,000 mg In 97.544 Empty Bag 1 bag @ 15 MCG/ KG/MIN 8.259 mls/hr IV . Q12H7M [facility] Rx#:[id number] Tube Feeding 272 308 146 Other 90 30 Output: Urine 0 25 10 Other: Voiding Method Indwelling Catheter Indwelling Catheter Indwelling Catheter ABP, PAP, CO, CI - Last Documented Arterial Blood Pressure 99/60 - Exam Patient is on the vent Unresponsive Examination of the heart S1 and S2 Examination of the lungs bilateral breath sounds are heard Abdomen is soft nontender Examination of lower extremity shows 1+ edema - Labs CBC & Chem 7: 02/17/23 04:16 02/17/23 04:16 Labs: Abnormal Lab Results - Last 24 Hours (Table) 02/16/23 02/16/23 02/16/23 Range/Units 14:50 14:50 17:10 WBC (3.8-10.6) k/uL RBC (3.80-5.40) m/uL Hgb (11.4-16.0) gm/dL Hct (34.0-46.0) % RDW (11.5-15.5) % Plt Count (150-450) k/uL ABG pCO2 (35-45) mmHg ABG pO2 (83-108) mmHg ABG HCO3 (21-25) mmol/L ABG O2 Saturation (94-97) % Sodium 136 L (137-145) mmol/L Carbon Dioxide 18 L (22-30) mmol/L BUN 57 H (7-17) mg/dL Creatinine 5.03 H (0.52-1.04) mg/dL Glucose 171 H (74-99) mg/dL POC Glucose (mg/dL) 175 H (70-110) mg/dL Calcium 7.2 L (8.4-10.2) mg/dL AST (14-36) U/L ALT (4-34) U/L Total Protein (6.3-8.2) g/dL Albumin (3.5-5.0) g/dL Triglycerides 269.00 H (0.00-149.00) mg/dL VLDL Cholesterol, Calc 53.80 H (5.00-40.00) mg/dL HDL Cholesterol 27.40 L (40.00-60.00) mg/dL 02/16/23 02/17/23 02/17/23 Range/Units 23:54 04:16 04:16 WBC 30.6 H (3.8-10.6) k/uL RBC 2.75 L (3.80-5.40) m/uL Hgb 8.3 L (11.4-16.0) gm/dL Hct 25.0 L (34.0-46.0) % RDW 16.2 H (11.5-15.5) % Plt Count 62 L (150-450) k/uL ABG pCO2 (35-45) mmHg ABG pO2 (83-108) mmHg ABG HCO3 (21-25) mmol/L ABG O2 Saturation (94-97) % Sodium 136 L (137-145) mmol/L Carbon Dioxide 16 L (22-30) mmol/L BUN 60 H (7-17) mg/dL Creatinine 5.54 H (0.52-1.04) mg/dL Glucose 168 H (74-99) mg/dL POC Glucose (mg/dL) 188 H (70-110) mg/dL Calcium 7.2 L (8.4-10.2) mg/dL AST 85 H (14-36) U/L ALT 134 H (4-34) U/L Total Protein 5.4 L (6.3-8.2) g/dL Albumin 2.8 L (3.5-5.0) g/dL Triglycerides (0.00-149.00) mg/dL VLDL Cholesterol, Calc (5.00-40.00) mg/dL HDL Cholesterol (40.00-60.00) mg/dL 02/17/23 02/17/23 02/17/23 Range/Units 05:35 05:44 11:48 WBC (3.8-10.6) k/uL RBC (3.80-5.40) m/uL Hgb (11.4-16.0) gm/dL Hct (34.0-46.0) % RDW (11.5-15.5) % Plt Count (150-450) k/uL ABG pCO2 33 L (35-45) mmHg ABG pO2 118 H (83-108) mmHg ABG HCO3 19 L (21-25) mmol/L ABG O2 Saturation 98.2 H (94-97) % Sodium (137-145) mmol/L Carbon Dioxide (22-30) mmol/L BUN (7-17) mg/dL Creatinine (0.52-1.04) mg/dL Glucose (74-99) mg/dL POC Glucose (mg/dL) 181 H 199 H (70-110) mg/dL Calcium (8.4-10.2) mg/dL AST (14-36) U/L ALT (4-34) U/L Total Protein (6.3-8.2) g/dL Albumin (3.5-5.0) g/dL Triglycerides (0.00-149.00) mg/dL VLDL Cholesterol, Calc (5.00-40.00) mg/dL HDL Cholesterol (40.00-60.00) mg/dL Microbiology - Last 24 Hours (Table) 02/14/23 04:59 Gram Stain - Final Sputum Sputum Culture - Final Assessment and Plan Assessment: 1. Acute kidney injury secondary to ATN secondary to cardiac arrest. Creatinine 1.42 admission and up to 5.5 today. Oliguric. No hydronephrosis noted on kidney ultrasound. Kidney cysts noted. 2. Metabolic acidosis secondary to acute kidney injury and lactic acidosis. Improved. ABG from this morning suggestive of respiratory alkalosis. 3. Status post cardiac arrest. 4. Acute ST elevated myocardial infarction. Etiology following. Status post heparin drip. 5. History of coronary disease status post CABG. 6. Facial hematoma secondary to fall. 7. Hyperphosphatemia secondary to acute kidney injury. 8. Hypomagnesemia from poor intake. Replaced. Improved. 9. Concern for anoxic brain injury. Neurology following. 10. A. fib with RVR maintained on amiodarone drip. Plan: Patient is not an ideal candidate for renal replacement therapy. Agree with discussion regarding possible comfort care measures. No urgent indication for hemodialysis today.
[2023-02-17] MEDS ORDERED: DEXTROSE 5% IN WATER 100 ML with AMIODARONE 150 MG IV ONE (17:21)
[2023-02-17] MEDS ORDERED: AMIODARONE 360 MG in DEXTROSE 5% IN WATER 200 ML IV ONE ×2 (17:21)
[2023-02-17 17:43] LABS: Glucose,Whole Blood 201 mg/dL (70-110)
[2023-02-17 18:41] VITALS: RESP 28
[2023-02-17] MEDS: ATORVASTATIN 40 MG TAB PO SCH (20:06)
[2023-02-17] MEDS: VASOPRESSIN 60 UNIT in SODIUM CHLORIDE 0.9% 150 ML IV SCH (22:27)
--- NOTE | 2023-02-17 22:55 | P.PN ---
Subjective 77-year-old female with history of CAD, status post CABG over 20 years ago who presented with cardiac arrest. The history is obtained from the records and the family. According to the son he came back home and found his mother on the floor, very weak dyspneic and shortly after had cardiac arrest. EMS started CPR that lasted for about 30 minutes requiring cardioversion 2. She was intubated. In the emergency room initially she was in atrial fibrillation and subsequently went back to sinus mechanism. The initial rhythm on the field according to the records was asystole. Patient had a large hematoma on the left side of the face. According to the family she has been doing well recently without any symptoms of angina pectoris nor congestive heart failure but she does not follow-up with cardiology on a regular basis. She had a triple bypass according to them, full detail of her intervention are not available. Her surgery was done at [facility]. The records are not available. No other history is available at this time. The patient is intubated, in sinus mechanism, has no urinary output and is requiring vasopressin and norepinephrine. She was severely acidotic on presentation. -- Patient was intubated and is admitted to ICU; intensive care and cardiology service is on board 02/16/2023 Patient is seen and evaluated in ICU; remains intubated and mechanically ventilated Vital signs are reviewed; blood pressure 111/73 O2 saturation 98% Patient had cardiopulmonary arrest with prolonged down time; normoactive int ervention from cardiology - Neurology on board for concern about anoxic brain injury due to prolonged cardiopulmonary arrest; EEG is ordered; urology planning to repeat CT of the head; ammonia level is ordered and pending - Patient is maintained on ventilator support with order entry clerk service asif cordova; patient has been placed on enteral feeding for nutritional support -- Remains on IV Zosyn for concern about aspiration pneumonia 02/17/2023 Patient remains in the ICU she is intubated, she does not need sedation as she is nonresponsive. Neurology service on the case for possible anoxic brain injury status post cardiac arrest She is also on amiodarone drip for her atrial fibrillation and dexamethasone 6 Twice daily and aspirin 81 mg Patient was on Levophed WBC 13,000, hemoglobin 8.3, platelet count 62. Creatinine 5.5 Planned for dialysis catheter placement Objective - Vital Signs Vital signs: Vital Signs Temp 98.9 F 02/17/23 12:00 Pulse 111 H 02/17/23 13:30 Resp 28 H 02/17/23 13:30 BP 111/71 02/17/23 13:30 Pulse Ox 99 02/17/23 13:30 FiO2 50 02/17/23 12:00 Intake & Output 02/16/23 02/17/23 02/17/23 18:59 06:59 18:59 Intake Total 4418.825 3343.339 902.51 Output Total 0 25 10 Balance 2821.344 6266.339 892.51 Weight 101.2 kg 101.2 kg Intake: IV 600 733 371 A-line 33 21 Piperacillin-Tazobactam 3 100 .375 gm In Sodium Chloride 0.9% 100 ml @ 25 mls/hr IVPB Q12HR [facility] Rx #:[id number] Sodium Chloride 0.9% 1, 600 600 350 000 ml @ 50 mls/hr IV . Q20H [facility] Rx#:[id number] Intake, IV Titration 379.052 756.339 257.51 Amount Amiodarone 450 mg In 250 Dextrose 5% in Water 250 ml @ 0.5 MG/MIN 16.667 mls/hr IV .Q15H [facility] Rx#: [id number] Norepinephrine 32 mg In 81.508 4.054 Sodium Chloride 0.9% 218 ml @ 0.03 MCG/KG/MIN 1. 329 mls/hr IV .Q24H [facility] Rx#:[id number] Norepinephrine 4 mg In 364.605 Sodium Chloride 0.9% 250 ml @ 0.03 MCG/KG/MIN 10. 801 mls/hr IV .[id number] [facility] Rx#:[id number] Norepinephrine 8 mg In 0.49 257.51 Sodium Chloride 0.9% 250 ml @ 0.03 MCG/KG/MIN 5. 875 mls/hr IV .Q24H [facility] Rx#:[id number] Piperacillin-Tazobactam 3 200 .375 gm In Sodium Chloride 0.9% 100 ml @ 25 mls/hr IVPB Q12HR [facility] Rx #:[id number] Vasopressin 60 unit In 137.19 Sodium Chloride 0.9% 150 ml @ 0.04 UNITS/MIN 6.12 mls/hr IV .Q24H [facility] Rx#: [id number] propofoL 1,000 mg In 97.544 Empty Bag 1 bag @ 15 MCG/ KG/MIN 8.259 mls/hr IV . Q12H7M [facility] Rx#:[id number] Tube Feeding 272 308 214 Other 90 60 Output: Urine 0 25 10 Other: Voiding Method Indwelling Catheter Indwelling Catheter Indwelling Catheter ABP, PAP, CO, CI - Last Documented Arterial Blood Pressure 105/75 - Exam -GENERAL: The patient is intubated HEENT: Pupils are round and equally reacting to light. EOMI. No scleral icterus. No conjunctival pallor. Normocephalic, atraumatic. No pharyngeal erythema. No thyromegaly. CARDIOVASCULAR: S1 and S2 present. No murmurs, rubs, or gallops. PULMONARY: Chest is clear to auscultation, no wheezing , no crackles. ABDOMEN: Soft, nontender, nondistended, normoactive bowel sounds. No palpable organomegaly. MUSCULOSKELETAL: No joint swelling or deformity. EXTREMITIES: No cyanosis, clubbing, or pedal edema. NEUROLOGICAL: Gross neurological examination did not reveal any focal deficits. SKIN: No rashes. no petechiae. - Labs CBC & Chem 7: 02/17/23 04:16 02/17/23 04:16 Labs: Abnormal Lab Results - Last 24 Hours (Table) 02/16/23 02/16/23 02/16/23 Range/Units 14:50 14:50 17:10 WBC (3.8-10.6) k/uL RBC (3.80-5.40) m/uL Hgb (11.4-16.0) gm/dL Hct (34.0-46.0) % RDW (11.5-15.5) % Plt Count (150-450) k/uL ABG pCO2 (35-45) mmHg ABG pO2 (83-108) mmHg ABG HCO3 (21-25) mmol/L ABG O2 Saturation (94-97) % Sodium 136 L (137-145) mmol/L Carbon Dioxide 18 L (22-30) mmol/L BUN 57 H (7-17) mg/dL Creatinine 5.03 H (0.52-1.04) mg/dL Glucose 171 H (74-99) mg/dL POC Glucose (mg/dL) 175 H (70-110) mg/dL Calcium 7.2 L (8.4-10.2) mg/dL AST (14-36) U/L ALT (4-34) U/L Total Protein (6.3-8.2) g/dL Albumin (3.5-5.0) g/dL Triglycerides 269.00 H (0.00-149.00) mg/dL VLDL Cholesterol, Calc 53.80 H (5.00-40.00) mg/dL HDL Cholesterol 27.40 L (40.00-60.00) mg/dL 02/16/23 02/17/23 02/17/23 Range/Units 23:54 04:16 04:16 WBC 30.6 H (3.8-10.6) k/uL RBC 2.75 L (3.80-5.40) m/uL Hgb 8.3 L (11.4-16.0) gm/dL Hct 25.0 L (34.0-46.0) % RDW 16.2 H (11.5-15.5) % Plt Count 62 L (150-450) k/uL ABG pCO2 (35-45) mmHg ABG pO2 (83-108) mmHg ABG HCO3 (21-25) mmol/L ABG O2 Saturation (94-97) % Sodium 136 L (137-145) mmol/L Carbon Dioxide 16 L (22-30) mmol/L BUN 60 H (7-17) mg/dL Creatinine 5.54 H (0.52-1.04) mg/dL Glucose 168 H (74-99) mg/dL POC Glucose (mg/dL) 188 H (70-110) mg/dL Calcium 7.2 L (8.4-10.2) mg/dL AST 85 H (14-36) U/L ALT 134 H (4-34) U/L Total Protein 5.4 L (6.3-8.2) g/dL Albumin 2.8 L (3.5-5.0) g/dL Triglycerides (0.00-149.00) mg/dL VLDL Cholesterol, Calc (5.00-40.00) mg/dL HDL Cholesterol (40.00-60.00) mg/dL 02/17/23 02/17/23 02/17/23 Range/Units 05:35 05:44 11:48 WBC (3.8-10.6) k/uL RBC (3.80-5.40) m/uL Hgb (11.4-16.0) gm/dL Hct (34.0-46.0) % RDW (11.5-15.5) % Plt Count (150-450) k/uL ABG pCO2 33 L (35-45) mmHg ABG pO2 118 H (83-108) mmHg ABG HCO3 19 L (21-25) mmol/L ABG O2 Saturation 98.2 H (94-97) % Sodium (137-145) mmol/L Carbon Dioxide (22-30) mmol/L BUN (7-17) mg/dL Creatinine (0.52-1.04) mg/dL Glucose (74-99) mg/dL POC Glucose (mg/dL) 181 H 199 H (70-110) mg/dL Calcium (8.4-10.2) mg/dL AST (14-36) U/L ALT (4-34) U/L Total Protein (6.3-8.2) g/dL Albumin (3.5-5.0) g/dL Triglycerides (0.00-149.00) mg/dL VLDL Cholesterol, Calc (5.00-40.00) mg/dL HDL Cholesterol (40.00-60.00) mg/dL Microbiology - Last 24 Hours (Table) 02/14/23 04:59 Gram Stain - Final Sputum Sputum Culture - Final Assessment and Plan Assessment: 1. Cardiac arrest; patient had prolonged CPR and presented with severe acidosis; intubated and mechanically ventilated at this time -Rn Chronic service on board; recommending to continue with ventilator support 2. Acute ST elevation NE; EKG changes consistent with inferolateral EKG changes; patient has history of coronary artery disease and is s/p CABG 20 years ago - Cardiology on board; given prolonged CPR, patient is deemed not a candidate for acute coronary angiography; echocardiogram is ordered and pending -- Cardiology recommending supportive care; patient has been placed on heparin cautiously, given left facial hematoma 3. Acute renal failure with anuria; likely ATN secondary to prolonged CPR and hypotension 4. Facial hematoma; no acute fracture; supportive care DVT prophylaxis; SCDs/IV heparin CODE STATUS; full code
[2023-02-17 23:27] LABS: Glucose,Whole Blood 234 mg/dL (70-110)
[2023-02-17] MEDS ORDERED: AMIODARONE 450 MG in DEXTROSE 5% IN WATER 250 ML IV SCH ×2 (23:30)
[2023-02-18] MEDS: SODIUM CHLORIDE 0.9% 1,000 ML IV SCH (01:04)
[2023-02-18] MEDS: IPRATROPIUM-ALBUTEROL 3 ML NEB INHALATION SCH ×3 (03:52→12:22)
[2023-02-18 05:46] LABS: Glucose,Whole Blood 220 mg/dL (70-110)
[2023-02-18] MEDS: CALCIUM ACETATE 667 MG TAB PO SCH (05:56)
[2023-02-18] MEDS: INSULIN ASPART (NovoLOG) 100 UNIT/ML VIAL SQ SCH (06:04)
[2023-02-18 06:16] LABS: Allen Test Performed? Yes
[2023-02-18 06:44] LABS: ABG HCO3 18 mmol/L (21-25); ABG Oxygen Saturation 99.5 % (94-97); ABG PCO2 31 mmHg (35-45); ABG PH 7.36 (7.35-7.45); ABG PO2 134 mmHg (83-108); ABG TCO2 19 mmol/L (19-24)
[2023-02-18 08:31] VITALS: TEMP 97.6
--- NOTE | 2023-02-18 09:10 | XR ---
EXAM: XR chest 1V portable CLINICAL INDICATION:Female, 77 years old with history of mechanical ventilation; [facility] COMPARISON: 02/17/2023 and before TECHNIQUE: Chest single view. FINDINGS: Lines/tubes/devices: NG/OG tube traverses below the diaphragm, extending into the left abdomen with t he tip beyond the field of view. ETT tip 5.1 cm above the mary. EKG leads over the chest. Cardiomediastinum: Cardiac silhouette appears stable enlarged. Stable mediastinal silhouette. Tiny radiodensity seen projected over the left mid to upper mediastinu m inferior to the aortic arch is of uncertain etiology, could represent some sort of postoperative ch magen. Vasculature: Mild central congestion. Lungs/pleura: Similar small left pleural effusion with minor infiltrate or atelectasis. Mild linear opacities in th e right lung base suggesting subsegmental atelectasis. Right lung base nodularity again seen likely c alcified granulomatous disease. No visualized pneumothorax. Bones/soft tissues: Bony thorax appears grossly unchanged as seen. Regional soft tissues appear unremarkable. Multiple st ernotomy wires. Partially visualized posterior fusion hardware in the lumbar spine. IMPRESSION: 1. Lines and tubes in place, as above. 2. Cardiomegaly and postoperative changes. Mild vascular congestion. 3. Similar small left pleural effusion with minor infiltrate or atelectasis. 4. Mild linear opacities in the right lung base suggesting subsegmental atelectasis.
[2023-02-18] MEDS: NOREPINEPHRINE 8 MG in SODIUM CHLORIDE 0.9% 250 ML IV SCH (09:37)
[2023-02-18] MEDS: PIPERACILLIN-TAZOBACTAM 3.375 GM in SODIUM CHLORIDE 0.9% 100 ML IVPB SCH (09:57)
[2023-02-18] MEDS: ASPIRIN 81 MG PO SCH ×2 (09:58→10:00)
[2023-02-18] MEDS: CHLORHEXIDINE GLUCONATE 15 ML CUP MUCOUS MEM SCH (09:58)
[2023-02-18] MEDS: PANTOPRAZOLE 40 MG/10 ML VIAL IVP SCH (09:58)
[2023-02-18] MEDS: DEXAMETHASONE SOD PHOSPHATE 10 MG/ML 1 ML VIAL IVP SCH (09:58)
--- NOTE | 2023-02-18 11:03 | P.PN ---
Subjective Progress Note Date: 02/18/23 Principal diagnosis: Cardiopulmonary arrest. Cardiopulmonary arrest This is a 77-year-old -[place] female known history of coronary artery disease and previous CABG over 20 years ago. Patient sustained a sudden cardiac arrest yesterday, Found His Mother on the Floor, this was apparently a witnessed collapse, patient sustained some laceration and hematoma over the left periorbital area requiring steri trips placed by the ER physician. EMS performed CPR for about 30 minutes, and she had cardioversion 2. Patient was intubated, and she was brought into the ER and she was noted upon arrival in atrial fibrillation. Then went back into sinus rhythm, initial rhythm according to EMS was asystole. But clearly from the records patient received at least 11 rounds of epinephrine all in all, and she had to be resuscitated again in the ER at least a couple of times. Patient remained hypotensive and transferred to the ICU and she is now requiring epinephrine at 0.12 mcg/kg/m patient is also requiring vasopressin at 0.04 units per minute patient is on heparin drip as per cardiology she is also on propofol at 50 mcg/kg/m. Patient is intubated and mechanically ventilated she is on assist control rate of 24 tidal volume 450 FiO2 on the percent and PEEP of 5 ABG showed a pO2 of 78 pCO2 46 pH of 7.22 initial her vent settings were adjusted and the patient received 1 amp of bicarb rate increased to 28, and repeat ABG showed a pO2 of 75 pCO2 43 pH of 7.29. Mone lozano at the medications given during her resuscitation patient received 11 A of epinephrine she received 3 A of bicarb and she was defibrillated 2. Hence down time is basically over 60 minutes cardiology felt that the patient had significant anoxic injury, and did not feel that the patient should have cardiac catheterization at this point. Awaiting to determine whether the patient is going to show any signs of neurological recovery. I did see the patient in the ICU, and I discussed her condition with the family, discussed the different options of treatment including the option of continuing full support and keeping the patient full code versus continuing the same but changing the CODE STATUS to DO NOT RESUSCITATE versus comfort care measures and letting the patient passed comfortably peacefully and dignified. Family is yet to decide on different options that where discussed Patient was reevaluated today on 02/15/23, remains in the ICU, intubated and mechanically ventilated. Patient is on assist control rate of 28.450 FiO2 was 80% and I cut it down to 60% PEEP was at 5 and I increased the PEEP up to 10. ABG showed a pO2 of 88 pCO2 43 pH of 7.32. Patient is still requiring multiple pressors including epinephrine at 0.1 for microalbumin per kilo per minute, which is also on vasopressin at 0.04 units per minute. Patient had to be placed on Nimbex yesterday because she was not synchronous with the ventilator, and propofol could not take care of the issue. Is also on propofol at 50 mg/kg/m Nimbex is at 1.5 mg/kg/m. No globe changer the last 24 hours, patient must have s ustained significant anoxic brain injury, hence neurology was consulted to see the patient today, and considering the patient has hardly any urine output and most likely she developed acute tubular necrosis and kidney injury, I'm recommending nephrology to see the patient today. In the meantime the patient will be started on enteral feeding, we'll continue Zosyn, and continue propofol but discontinue Nimbex. Decadron was added 6 mg IV push every 12 hours. Patient is a sliding scale for her elevated blood sugar, and today I recommended one dose of Lasix 80 mg IV push 1 since the patient is not making much of any urine. WBC count is up today 27.7 hemoglobin is 9.8. Basic metabolic profile is normal, renal profile showed worsening BUN up to 38 creatinine is worsening couple to 3.04 liver enzymes are elevated AST of 289 and ALT of 251. Troponin yesterday was as high as 13, and BNP level is 8610 chest x-ray today showed clear right lung, however significant findings noted on the left lung with consolidation involving the left upper lobe left midlung and left lower lobe. Clearly the patient has patchy airspace disease involving the left lung mostly. It is empirically on Zosyn Patient was reevaluated today on 02/16/23, remains in the ICU intubated and mechanically ventilated, remains on assist control rate of 28th 2450 FiO2 50% PEEP of 10 and PEEP was cut down to 8 after reviewing her ABG pO2 today is 122 pCO2 33 pH of 7.42. Patient is unresponsive to any stimuli, her pupils are fixed and dilated. Patient has negative corneals, she has negative gag reflex, she is in the process of having an EEG, and again her neurological status seems to have gotten worse. Being followed by neurology, CT of the brain was negative initially. EEG is pending patient is on multiple drips including amiodarone 0.5 mg/m, patient went into atrial fibrillation with RVR yesterday when dialysis was started and she tolerated only half an hour of dialysis. She is on norepinephrine at 0.17 vasopressin at 0.04 units per minute vital HP 10 mL per hour IV fluid at 50 mL per hour and propofol at 20 mg/kg/m. Today the patient is back in sinus rhythm, nonetheless she is on amiodarone at 0.5 mg/m. Her WBC count is on the rise WBC is 30.5 hemoglobin is 9.1. Basic metabolic profile is normal bicarb is 20 BUN is 50 creatinine 4.54, liver enzymes are slightly elevated. Again overall the picture is looking worse, and urologically the patient is not showing any signs of improvement. Family is still undecided about comfort care measures patient in the meantime remains full code chest x-r ay however is showing improvement in her left lung consolidation, significant improvement noted in the last 24 hours Progress note dated 02/17/2023. This is a 77-year-old black female who had an [id number] cardiopulmonary arrest. The patient was admitted on February 13, and intubated in the ER, she came to the intensive care unit on February 14. The patient had a very prolonged downtime, and had CPR, for about 2 hours, and apparently was coded at times. The patient's overall prognosis obviously remains very poor, and patient has likely sustained significant anoxic brain injury, and possible brain . She remains on the ventilator, with settings of volume assist control, rate 28, ti tamir volume 450, FiO2 50%, and PEEP of 12. Blood gases show pO2 118, pCO2 33, and a pH is 7.36. The patient is currently on amiodarone at 0.5 mg/m, saline at 50 mL an hour, norepinephrine at 50 mcg/m, and vasopressin 0.04 units per minute. Computed tomography scan of the brain shows significant edema, and acute ischemic infarcts. Laboratory data includes a white count of 30.6, hemoglobin 8.3, hematocrit 25, and a platelet count of 62,000. Sodium 136, potassium 4.2, chlorides 104, CO2 16, anion gap 16, BUN 60, creatinine 5.54. Chest x-ray shows a properly placed endotracheal tube, and minimal upper lobe infiltrates. The chest x-rays near normal. Progress note dated 02/18/2023. 77-year-old black female, who had an [id number] cardiopulmonary arrest. The patient was admitted on February 13, and intubated in the emergency department, and came to the intensive care unit, on February 14. She had a very prolonged downtime, and at CPR for about 2 hours, and apparently was coded 8 nidia es. The patient obviously has a very poor prognosis, as reflected in the notes by neurology, the CT scans of the brain, and the EEGs. The patient remains on mechanical ventilator, with settings of volume assist control, rate 28, tidal volume 450, FiO2 40%, and PEEP of 12. Blood gases show pO2 134, pCO2 31, and a pH is 7.36. The patient remains on norepinephrine at 7 mcg/m, vasopressin at 0.04 units per minute, and saline at 50 mL an hour. In addition, the patient's on amiodarone at 0.5 mg/m. Tube feedings are currently on hold. The nurse, taking care of the patient this morning, states that the family will terminally weaned this patient, later this morning. Labs today only includes a blood gas, and a glucose of 220. Chest x-ray shows cardiomegaly, and mild vascular congestion, small effusions. Objective - Vital Signs Vital signs: Vital Signs Temp 97.6 F 02/18/23 08:00 Pulse 40 L 02/18/23 10:10 Resp 28 H 02/18/23 10:10 BP 67/42 02/18/23 10:10 Pulse Ox 99 02/18/23 10:10 FiO2 50 02/18/23 10:00 Intake & Output 02/17/23 02/18/23 02/18/23 18:59 06:59 18:59 Intake Total 6462.261 1225.375 614.299 Output Total 10 20 5 Balance 8272.720 8521.375 609.299 Weight 101.2 kg 100.3 kg Intake: IV 636 674 250 A-line 36 24 Piperacillin-Tazobactam 3 100 .375 gm In Sodium Chloride 0.9% 100 ml @ 25 mls/hr IVPB Q12HR [facility] Rx #:[id number] Sodium Chloride 0.9% 1, 600 650 150 000 ml @ 50 mls/hr IV . Q20H [facility] Rx#:[id number] Intake, IV Titration 428.562 371.375 266.299 Amount Amiodarone 450 mg In 190.837 Dextrose 5% in Water 250 ml @ 0.5 MG/MIN 16.667 mls/hr IV .Q15H [facility] Rx#: [id number] Norepinephrine 8 mg In 428.562 232.961 75.462 Sodium Chloride 0.9% 250 ml @ 0.03 MCG/KG/MIN 5. 875 mls/hr IV .Q24H [facility] Rx#:[id number] Vasopressin 60 unit In 138.414 Sodium Chloride 0.9% 150 ml @ 0.04 UNITS/MIN 6.12 mls/hr IV .Q24H [facility] Rx#: [id number] Tube Feeding 384 442 68 Other 90 60 30 Output: Urine 10 20 5 Other: Voiding Method Indwelling Catheter Indwelling Catheter Indwelling Catheter # Voids 1 ABP, PAP, CO, CI - Last Documented Arterial Blood Pressure 73/68 - Exam No acute distress, unresponsive, with an orally placed endotracheal tube and NG tube. HEENT examination is grossly unremarkable. Large periorbital hematoma on the left. Neck supple. Full range of motion. No adenopathy thyromegaly or neck vein dis tention. Cardiovascular examination reveals regular rhythm rate. S1-S2 normal. No S3 or S4. 2/6 systolic murmur. Heart rate 71 bpm. Lungs reveal mild scattered crackles. No rhonchi or wheezes. Breath sounds equal. Saturations are 99%. Abdomen soft without bowel sounds. No masses or tenderness. Extremities are intact. No cyanosis clubbing or edema. Skin is without rash or lesion. Neurologic examination reveals a patient who is unresponsive to painful or verbal stimuli. Pupils are dilated and fixed. They're nonreactive. There is no gag reflex. There is no corneal reflex. - Labs CBC & Chem 7: 02/17/23 04:16 02/17/23 04:16 Labs: Abnormal Lab Results - Last 24 Hours (Table) 02/17/23 02/17/23 02/17/23 Range/Units 11:48 17:41 23:25 ABG pCO2 (35-45) mmHg ABG pO2 (83-108) mmHg ABG HCO3 (21-25) mmol/L ABG O2 Saturation (94-97) % POC Glucose (mg/dL) 199 H 201 H 234 H (70-110) mg/dL 02/18/23 02/18/23 Range/Units 05:44 06:44 ABG pCO2 31 L (35-45) mmHg ABG pO2 134 H (83-108) mmHg ABG HCO3 18 L (21-25) mmol/L ABG O2 Saturation 99.5 H (94-97) % POC Glucose (mg/dL) 220 H (70-110) mg/dL Assessment and Plan Assessment: Status post acute cardiopulmonary arrest, with a very prolonged downtime, and likely severe anoxic brain injury, or even brain . Status post intubation and mechanical ventilation, on 02/13/2023. Acute ST elevation myocardial infarction. Acute hypoxemic and hypercapnic respiratory failure. Acute kidney injury/ATN, secondary to hypotension, and prolonged CPR. Left periorbital hematoma. History of CAD with previous bypass grafting. Benign essential hypertension. History of obstructive sleep apnea syndrome. New onset atrial fibrillation. Plan: Plan dated 02/17/2023. According to the nurse, one of the neurologists is going to do a brain evaluation, sometime today. The patient is unresponsive to painful or verbal stimuli. She does not have a gag reflex or corneal reflex. The patient's overall prognosis remains extremely poor, given the fact that she had an [id number] cardiopulmonary arrest, with a prolonged more than 2 or of resuscitation, and having coded at times according to the nurse. The patient's brain CT shows evidence of diffuse edema, and acute ischemic infarct. The patient is not on any sedatives. The patient remains on norepinephrine at 15 mcg/m, and vasopressin at 0.04 units per minute. Additional recommendations and suggestions are forthcoming. The patient continues on amiodarone at 0.5 mg/m for the atrial fibrillation. We will continue to follow the patient, and make recommendations along the way. Plan dated 02/18/2023. The patient's family apparently have decided to terminally wean this patient, later this morning. The patient remains on multiple medications including norepinephrine, vasopressin, and amiodarone. 2 feedings on hold. Blood gases are reasonable. The results of the recent EEG, and CT scans, has been reviewed. The notes by neurology had also been reviewed. The patient's overall prognosis remains extremely poor, the patient likely has significant cerebral , and possibly even brain . Labs, x-rays, medications are reviewed. Prognosis is very poor. Time with Patient: Greater than 30
--- NOTE | 2023-02-18 11:14 | P.PN ---
Subjective Patient is is being followed for acute kidney injury. Family has decided to proceed with terminal weaninG today. No urine output No significant change since yesterday. Objective - Vital Signs Vital signs: Vital Signs Temp 97.6 F 02/18/23 08:00 Pulse 73 02/18/23 11:00 Resp 28 H 02/18/23 11:00 BP 82/43 02/18/23 11:00 Pulse Ox 97 02/18/23 11:00 FiO2 50 02/18/23 11:00 Intake & Output 02/17/23 02/18/23 02/18/23 18:59 06:59 18:59 Intake Total 6780.772 8823.375 652.232 Output Total 10 20 5 Balance 8155.374 8863.375 647.232 Weight 101.2 kg 100.3 kg Intake: IV 636 674 300 A-line 36 24 Piperacillin-Tazobactam 3 100 .375 gm In Sodium Chloride 0.9% 100 ml @ 25 mls/hr IVPB Q12HR [facility] Rx #:[id number] Sodium Chloride 0.9% 1, 600 650 200 000 ml @ 50 mls/hr IV . Q20H [facility] Rx#:[id number] Intake, IV Titration 428.562 371.375 288.232 Amount Amiodarone 450 mg In 190.837 Dextrose 5% in Water 250 ml @ 0.5 MG/MIN 16.667 mls/hr IV .Q15H [facility] Rx#: [id number] Norepinephrine 8 mg In 428.562 232.961 97.395 Sodium Chloride 0.9% 250 ml @ 0.03 MCG/KG/MIN 5. 875 mls/hr IV .Q24H [facility] Rx#:[id number] Vasopressin 60 unit In 138.414 Sodium Chloride 0.9% 150 ml @ 0.04 UNITS/MIN 6.12 mls/hr IV .Q24H [facility] Rx#: [id number] Tube Feeding 384 442 34 Other 90 60 30 Output: Urine 10 20 5 Other: Voiding Method Indwelling Catheter Indwelling Catheter Indwelling Catheter # Voids 1 ABP, PAP, CO, CI - Last Documented Arterial Blood Pressure 73/68 - Exam Patient is not examined - Labs CBC & Chem 7: 02/17/23 04:16 02/17/23 04:16 Labs: Abnormal Lab Results - Last 24 Hours (Table) 02/17/23 02/17/23 02/17/23 Range/Units 11:48 17:41 23:25 ABG pCO2 (35-45) mmHg ABG pO2 (83-108) mmHg ABG HCO3 (21-25) mmol/L ABG O2 Saturation (94-97) % POC Glucose (mg/dL) 199 H 201 H 234 H (70-110) mg/dL 02/18/23 02/18/23 Range/Units 05:44 06:44 ABG pCO2 31 L (35-45) mmHg ABG pO2 134 H (83-108) mmHg ABG HCO3 18 L (21-25) mmol/L ABG O2 Saturation 99.5 H (94-97) % POC Glucose (mg/dL) 220 H (70-110) mg/dL Assessment and Plan Assessment: 1. Acute kidney injury secondary to ATN secondary to cardiac arrest. Creatinine 1.42 admission and up to 5.5 today. Oliguric. No hydronephrosis noted on kidney ultrasound. Kidney cysts noted. Not a candidate for renal replacement therapy 2. Metabolic acidosis secondary to acute kidney injury and lactic acidosis. Improved. ABG from this morning suggestive of respiratory alkalosis. 3. Status post cardiac arrest. 4. Acute ST elevated myocardial infarction. Etiology following. Status post heparin drip. 5. History of coronary disease status post CABG. 6. Facial hematoma secondary to fall. 7. Hyperphosphatemia secondary to acute kidney injury. 8. Hypomagnesemia from poor intake. Replaced. Improved. 9. Concern for anoxic brain injury. Neurology following. 10. A. fib with RVR maintained on amiodarone drip. Plan: Patient is not a candidate for renal replacement therapy. Agree with plans for terminal wean.
[2023-02-18 11:26] VITALS: BP 82/43; PULSE 73
--- NOTE | 2023-02-21 17:19 | P.PN ---
Subjective 77-year-old female with history of CAD, status post CABG over 20 years ago who presented with cardiac arrest. The history is obtained from the records and the family. According to the son he came back home and found his mother on the floor, very weak dyspneic and shortly after had cardiac arrest. EMS started CPR that lasted for about 30 minutes requiring cardioversion 2. She was intubated. In the emergency room initially she was in atrial fibrillation and subsequently went back to sinus mechanism. The initial rhythm on the field according to the records was asystole. Patient had a large hematoma on the left side of the face. According to the family she has been doing well recently without any symptoms of angina pectoris nor congestive heart failure but she does not follow-up with cardiology on a regular basis. She had a triple bypass according to them, full detail of her intervention are not available. Her surgery was done at [facility]. The records are not available. No other history is available at this time. The patient is intubated, in sinus mechanism, has no urinary output and is requiring vasopressin and norepinephrine. She was severely acidotic on presentation. -- Patient was intubated and is admitted to ICU; intensive care and cardiology service is on board 02/16/2023 Patient is seen and evaluated in ICU; remains intubated and mechanically ventilated Vital signs are reviewed; blood pressure 111/73 O2 saturation 98% Patient had cardiopulmonary arrest with prolonged down time; normoactive int ervention from cardiology - Neurology on board for concern about anoxic brain injury due to prolonged cardiopulmonary arrest; EEG is ordered; urology planning to repeat CT of the head; ammonia level is ordered and pending - Patient is maintained on ventilator support with rerolling machine operator service asif cordova; patient has been placed on enteral feeding for nutritional support -- Remains on IV Zosyn for concern about aspiration pneumonia 02/17/2023 Patient remains in the ICU she is intubated, she does not need sedation as she is nonresponsive. Neurology service on the case for possible anoxic brain injury status post cardiac arrest She is also on amiodarone drip for her atrial fibrillation and dexamethasone 6 Twice daily and aspirin 81 mg Patient was on Levophed WBC 13,000, hemoglobin 8.3, platelet count 62. Creatinine 5.5 Planned for dialysis catheter placement 02/18/2023 Patient remains severely encephalopathic Plan mechanical ventilation with FiO2 of 50%, she still significantly tachypneic Patient remains on pressors off Levophed and vasopressin as well as amiodarone down the drip and dexamethasone patient prognosis looks very poor Family deciding to go with comfort measures and extubated the patient, as per bedside nurse : Within urology service and critical care service on the case and followint pt closely Objective - Vital Signs Vital signs: Vital Signs Temp 97.6 F 02/18/23 08:00 Pulse 40 L 02/18/23 10:10 Resp 28 H 02/18/23 10:10 BP 67/42 02/18/23 10:10 Pulse Ox 99 02/18/23 10:10 FiO2 50 02/18/23 10:00 Intake & Output 02/17/23 02/18/23 02/18/23 18:59 06:59 18:59 Intake Total 3616.863 8742.375 614.299 Output Total 10 20 5 Balance 6749.644 1776.375 609.299 Weight 101.2 kg 100.3 kg Intake: IV 636 674 250 A-line 36 24 Piperacillin-Tazobactam 3 100 .375 gm In Sodium Chloride 0.9% 100 ml @ 25 mls/hr IVPB Q12HR [facility] Rx #:[id number] Sodium Chloride 0.9% 1, 600 650 150 000 ml @ 50 mls/hr IV . Q20H [facility] Rx#:[id number] Intake, IV Titration 428.562 371.375 266.299 Amount Amiodarone 450 mg In 190.837 Dextrose 5% in Water 250 ml @ 0.5 MG/MIN 16.667 mls/hr IV .Q15H [facility] Rx#: [id number] Norepinephrine 8 mg In 428.562 232.961 75.462 Sodium Chloride 0.9% 250 ml @ 0.03 MCG/KG/MIN 5. 875 mls/hr IV .Q24H [facility] Rx#:[id number] Vasopressin 60 unit In 138.414 Sodium Chloride 0.9% 150 ml @ 0.04 UNITS/MIN 6.12 mls/hr IV .Q24H [facility] Rx#: [id number] Tube Feeding 384 442 68 Other 90 60 30 Output: Urine 10 20 5 Other: Voiding Method Indwelling Catheter Indwelling Catheter Indwelling Catheter # Voids 1 ABP, PAP, CO, CI - Last Documented Arterial Blood Pressure 73/68 - Exam -GENERAL: The patient is intubated HEENT: Pupils are round and equally reacting to light. EOMI. No scleral icterus. No conjunctival pallor. Normocephalic, atraumatic. No pharyngeal erythema. No thyromegaly. CARDIOVASCULAR: S1 and S2 present. No murmurs, rubs, or gallops. PULMONARY: Chest is clear to auscultation, no wheezing , no crackles. ABDOMEN: Soft, nontender, nondistended, normoactive bowel sounds. No palpable organomegaly. MUSCULOSKELETAL: No joint swelling or deformity. EXTREMITIES: No cyanosis, clubbing, or pedal edema. NEUROLOGICAL: Gross neurological examination did not reveal any focal deficits. SKIN: No rashes. no petechiae. - Labs CBC & Chem 7: 02/17/23 04:16 02/17/23 04:16 Labs: Abnormal Lab Results - Last 24 Hours (Table) 02/17/23 02/17/23 02/17/23 Range/Units 11:48 17:41 23:25 ABG pCO2 (35-45) mmHg ABG pO2 (83-108) mmHg ABG HCO3 (21-25) mmol/L ABG O2 Saturation (94-97) % POC Glucose (mg/dL) 199 H 201 H 234 H (70-110) mg/dL 02/18/23 02/18/23 Range/Units 05:44 06:44 ABG pCO2 31 L (35-45) mmHg ABG pO2 134 H (83-108) mmHg ABG HCO3 18 L (21-25) mmol/L ABG O2 Saturation 99.5 H (94-97) % POC Glucose (mg/dL) 220 H (70-110) mg/dL Assessment and Plan Assessment: 1. Cardiac arrest; patient had prolonged CPR and presented with severe acidosis; intubated and mechanically ventilated at this time -Post Hole Digger service on board; recommending to continue with ventilator support -Patient remains on pressors with mostly secondary to cardiogenic shock -Prognosis remains very poor and family considering comfort measures and extubating the patient with critical care team aware and follow-up with the patient as well 2. Acute ST elevation SC; EKG changes consistent with inferolateral EKG changes; patient has history of coronary artery disease and is s/p CABG 20 years ago - Cardiology on board; given prolonged CPR, patient is deemed not a candidate for acute coronary angiography; echocardiogram is ordered and pending -- Cardiology recommending supportive care; patient has been placed on heparin cautiously, given left facial hematoma 3. Acute renal failure with anuria; likely ATN secondary to prolonged CPR and hypotension 4. Facial hematoma; no acute fracture; supportive care DVT prophylaxis; SCDs/IV heparin CODE STATUS; full code
--- NOTE | 2023-02-21 17:21 | P.DS ---
Providers Date of admission: 02/14/23 02:51 Attending physician: Peterson Shine Consults: 02/14/23 02:51 Consult Physician Routine Consulting Provider: Rick Arizmendi Consult Reason/Comments: icu Do you want consulting provider notified?: Yes Consult Physician Routine Consulting Provider: Eduar Bustos Consult Reason/Comments: acs Do you want consulting provider notified?: Yes 02/15/23 09:26 Consult Physician Routine Consulting Provider: Renato Villagomez Consult Reason/Comments: AMS, cardiac arrest Do you want consulting provider notified?: Yes 02/15/23 09:33 Consult Physician Routine Consulting Provider: Pam Quiros Consult Reason/Comments: PETER, Cardiac arrest Do you want consulting provider notified?: Yes 02/15/23 12:23 Consult Physician Routine Consulting Provider: Raul Orosco Consult Reason/Comments: Temporary Dialysis Catheter Do you want consulting provider notified?: Yes Primary care physician: [facility] Course: Patient was on 02/18 after family decided to extubate the patient for comfort measures Prognosis was very poor and the like of recovery were very slim. , Please refer to nurses note for more details Please refer to progress note from 02/17 for more details Patient Condition at Discharge: Critical Plan - Discharge Summary Discharge Rx Participant: No New Discharge Prescriptions: No Action RX: Metoprolol Tartrate [Lopressor] 25 mg PO BID Latanoprost/Pf [Latanoprost 0.005% Eye Drop] 1 drop BOTH EYES HS RX: Irbesartan 300 mg PO DAILY Ergocalciferol [Vitamin D2 (1250 Mcg = 68775 Iu)] 1,250 mcg PO QMONTHLY Albuterol Sulfate [Albuterol Sulfate Hfa] 2 puff PO RT-Q4H PRN PRN Reason: Shortness Of Breath Conejos-3 Fatty Acids [Conejos-3] 1,000 mg PO DAILY RX: Spironolactone 25 mg PO DAILY amLODIPine [Norvasc] 10 mg PO DAILY Aspirin EC [Ecotrin Low Dose] 81 mg PO DAILY Discharge Medication List RX: Metoprolol Tartrate [Lopressor] 25 mg PO BID 07/23/13 [History] Latanoprost/Pf [Latanoprost 0.005% Eye Drop] 1 drop BOTH EYES HS 04/08/22 [History] Conejos-3 Fatty Acids [Conejos-3] 1,000 mg PO DAILY 04/08/22 [History] RX: Irbesartan 300 mg PO DAILY 04/08/22 [History] Albuterol Sulfate [Albuterol Sulfate Hfa] 2 puff PO RT-Q4H PRN 02/14/23 [History] Aspirin EC [Ecotrin Low Dose] 81 mg PO DAILY 02/14/23 [History] Ergocalciferol [Vitamin D2 (1250 Mcg = 60403 Iu)] 1,250 mcg PO QMONTHLY 02/14/23 [History] RX: Spironolactone 25 mg PO DAILY 02/14/23 [History] amLODIPine [Norvasc] 10 mg PO DAILY 02/14/23 [History] Follow up Appointment(s)/Referral(s): None,Stated [REFERRING] - 1-2 days Discharge Disposition: - Preliminary Cause of Preliminary Cause of : STEMI
== END 2023-02-18 13:05 | disposition expired ==
LOC: EDBD → EC 00:33 → MERGE 02:51 → 2SICU 02:51
PROVIDERS: ADMIT Hospitalist; ATTEND Hospitalist
PROC: 5A1955Z Respiratory Ventilation, Greater than 96 Consecutive Hours (ICD-10-PCS; principal; 2023-02-14)
PROC: 4A133J1 Monitoring of Arterial Pulse, Peripheral, Percutaneous Approach (ICD-10-PCS; 2023-02-14)
PROC: 4A133B1 Monitoring of Arterial Pressure, Peripheral, Percutaneous Approach (ICD-10-PCS; 2023-02-14)
PROC: 03HY32Z Insertion of Monitoring Device into Upper Artery, Percutaneous Approach (ICD-10-PCS; 2023-02-14)
PROC: 0JHL3XZ Insertion of Tunneled Vascular Access Device into Right Upper Leg Subcutaneous Tissue and Fascia, Percutaneous Approach (ICD-10-PCS; 2023-02-15)
PROC: 06HM33Z Insertion of Infusion Device into Right Femoral Vein, Percutaneous Approach (ICD-10-PCS; 2023-02-15)
PROC: B54BZZA Ultrasonography of Right Lower Extremity Veins, Guidance (ICD-10-PCS; 2023-02-15)
PROC: 3E033XZ Introduction of Vasopressor into Peripheral Vein, Percutaneous Approach (ICD-10-PCS; 2023-02-15)
PROC: 06HM33Z Insertion of Infusion Device into Right Femoral Vein, Percutaneous Approach (ICD-10-PCS; 2023-02-15)
PROC: 4A10X4Z Monitoring of Central Nervous Electrical Activity, External Approach (ICD-10-PCS; 2023-02-16)
PROC: 5A1D70Z Performance of Urinary Filtration, Intermittent, Less than 6 Hours Per Day (ICD-10-PCS; 2023-02-16)
DX: I21.19 ST elevation (STEMI) myocardial infarction involving other coronary artery of inferior wall (principal); G93.6 Cerebral edema; J96.02 Acute respiratory failure with hypercapnia; J96.01 Acute respiratory failure with hypoxia; K72.00 Acute and subacute hepatic failure without coma; J69.0 Pneumonitis due to inhalation of food and vomit; N17.0 Acute kidney failure with tubular necrosis; G93.1 Anoxic brain damage, not elsewhere classified; E87.4 Mixed disorder of acid-base balance; E87.20 Acidosis, unspecified; I46.2 Cardiac arrest due to underlying cardiac condition; G93.89 Other specified disorders of brain; R57.0 Cardiogenic shock; Z66 Do not resuscitate; I48.91 Unspecified atrial fibrillation; I08.0 Rheumatic disorders of both mitral and aortic valves; I27.20 Pulmonary hypertension, unspecified; N28.1 Cyst of kidney, acquired; Z51.5 Encounter for palliative care; I10 Essential (primary) hypertension; D69.6 Thrombocytopenia, unspecified; G47.33 Obstructive sleep apnea (adult) (pediatric); I25.10 Atherosclerotic heart disease of native coronary artery without angina pectoris; Z95.1 Presence of aortocoronary bypass graft; I25.2 Old myocardial infarction; E83.39 Other disorders of phosphorus metabolism; R34 Anuria and oliguria; S01.112A Laceration without foreign body of left eyelid and periocular area, initial encounter; E83.42 Hypomagnesemia; W19.XXXA Unspecified fall, initial encounter; Z79.82 Long term (current) use of aspirin; Z79.899 Other long term (current) drug therapy; Z86.73 Personal history of transient ischemic attack (TIA), and cerebral infarction without residual deficits; Z87.891 Personal history of nicotine dependence
CPT/HCPCS: 36415; 36600; 70450; 70486; 71045; 72125; 76770; 80048; 80053; 80061; 82140; 82805; 83605; 83735; 83880; 84100; 84132; 84484; 85025; 85027; 85610; 85730; 86706; 87070; 87205; 87340; 90935; 92950; 93306; 93880; 94002; 94003; 94640; 95819; 96365; 96366; 96368; 99291; 99292